=== PATIENT | male | born 1950 | race Caucasian/White ===

== ENCOUNTER 2016-03-27 17:33 | Observation (INO) | payer BC ==
[2016-03-27 17:57] LABS: ABSOLUTE BASOPHILS # (AUTO) 0.1 10^3/uL (0.0-0.2); ABSOLUTE EOSINOPHILS # (AUTO) 0.3 10^3/uL (0.0-0.6); ABSOLUTE LYMPHOCYTES (AUTO) 1.9 10^3/uL (0.5-4.7); ABSOLUTE MONOCYTES (AUTO) 0.6 10^3/uL (0.1-1.4); ABSOLUTE NEUT (AUTO) 4.5 10^3/uL (1.7-8.2); BASOPHILS % (AUTO) 0.8 % (0-2); EOSINOPHILS % (AUTO) 3.8 % (0-6); HEMATOCRIT 44.8 % (37.9-51.0); HEMOGLOBIN 14.9 g/dL (13.5-17.0); HGB HCT DIFFERENCE -0.1; LYMPHOCYTES % (AUTO) 25.7 % (13-45); MEAN CORPUSCULAR HEMOGLOBIN 29.6 pg (27.0-33.4); MEAN CORPUSCULAR HGB CONC 33.2 g/dL (32.0-36.0); MEAN CORPUSCULAR VOLUME 89 fl (80-97); MONOCYTES % (AUTO) 8.7 % (3-13); RED BLOOD COUNT 5.03 10^6/uL (4.35-5.55); RED CELL DISTRIBUTION WIDTH 14.8 % (11.5-14.0); WHITE BLOOD COUNT 7.3 10^3/uL (4.0-10.5)
[2016-03-27 18:20] LABS: ALANINE AMINOTRANSFERASE 32 U/L (21-72); ALBUMIN 3.6 g/dL (3.5-5.0); ALKALINE PHOSPHATASE 69 U/L (38-126); ANION GAP 8 (5-19); ASPARTATE AMINO TRANSFERASE 16 U/L (17-59); BILIRUBIN,TOTAL 0.4 mg/dL (0.2-1.3); BLOOD UREA NITROGEN 17 mg/dL (7-20); CALCIUM 8.7 mg/dL (8.4-10.2); CARBON DIOXIDE 25 mmol/L (22-30); CHLORIDE 107 mmol/L (98-107); CREATINE KINASE 65 U/L (55-170); CREATININE RESULT 0.73 mg/dL (0.52-1.25); GLUCOSE 326 mg/dL (75-110); POTASSIUM 4.9 mmol/L (3.6-5.0); SODIUM 139.7 mmol/L (137-145)
[2016-03-27 18:33] LABS: CREATINE KINASE MB 0.51 ng/mL (<4.55); TROPONIN I 0.027 ng/mL
--- NOTE | 2016-03-27 19:41 | ER Document Report ---
ED General - General Chief Complaint: Chest Pain > 30 Stated Complaint: CHEST PAIN Notes: Patient is a 65-year-old male with past medical history of known coronary artery disease status post 2 NSTEMIs with stent placement, diabetes, hypertension, hyperlipidemia who presents with 2 weeks of increasingly frequent chest pain. States he had an episode chest pain today that started while he was walking. Does describe it as a left-sided chest pressure that was moderately uncomfortable and got progressively worse. It was relieved after he received nitroglycerin. Nothing worsens the pain. He denies associated shortness of breath, nausea, vomiting or diaphoresis. He saw his security officer earlier this week for these increasingly frequent episodes of chest pain. An echocardiogram was done that was unremarkable and he is scheduled for a stress test at the end of the month. It is in greater than 1 year since his last stress test. He denies any history of aortic dissection, aortic aneurysm, DVT or pulmonary embolus. TRAVEL OUTSIDE OF THE [place] IN LAST 30 DAYS: No - Related Data Allergies/Adverse Reactions: No Known Allergies Allergy (Verified 03/27/16 18:10) Past Medical History - General Information source: Patient - Social History Smoking Status: Never Smoker Frequency of alcohol use: None Drug Abuse: None Lives with: Spouse/Significant other Family History: Reviewed & Not Pertinent Patient has suicidal ideation: No Patient has homicidal ideation: No - Past Medical History Cardiac Medical History: Reports: Hx Heart Attack - x2, Hx Hypertension Endocrine Medical History: Reports: Hx Diabetes Mellitus Type 2 Renal/ Medical History: Denies: Hx Peritoneal Dialysis Psychiatric Medical History: Reports: Hx Depression Review of Systems - Review of Systems Notes: Constitutional: Negative for fever. HENT: Negative for sore throat. Eyes: Negative for visual changes. Cardiovascular: Positive for chest pain. Respiratory: Negative for shortness of breath. Gastrointestinal: Negative for abdominal pain, vomiting or diarrhea. Genitourinary: Negative for dysuria. Musculoskeletal: Negative for back pain. Skin: Negative for rash. Neurological: Negative for headaches, weakness or numbness. 10 point ROS negative except as marked above and in HPI. Physical Exam - Vital signs Vitals: Resp Pulse Ox 19 100 03/27/16 17:50 03/27/16 17:50 Interpretation: Normal Notes: PHYSICAL EXAMINATION: GENERAL: Well-appearing, well-nourished and in no acute distress. HEAD: Atraumatic, normocephalic. EYES: Pupils equal round and reactive to light, extraocular movements intact, sclera anicteric, conjunctiva are normal. ENT: nares patent, oropharynx clear without exudates. Moist mucous membranes. NECK: Normal range of motion, supple without lymphadenopathy LUNGS: Breath sounds clear to auscultation bilaterally and equal. No wheezes rales or rhonchi. HEART: Regular rate and rhythm without murmurs ABDOMEN: Soft, nontender, normoactive bowel sounds. No guarding, no rebound. No masses appreciated. EXTREMITIES: Normal range of motion, no pitting or edema. No cyanosis. NEUROLOGICAL: No focal neurological deficits. Moves all extremities spontaneously and on command. PSYCH: Normal mood, normal affect. SKIN: Warm, Dry, normal turgor, no rashes or lesions noted. Course - Re-evaluation Re-evalutation: 03/27/16 19:39 Presentation of chest pain in an otherwise well appearing patient. Low clinical suspicion for ACS given clinical history, exam, EKG without ST elevations or depressions, and negative initial troponin. However, patient does given clinical history concerning for increasingly unstable angina his heart score is 4. PE also seems unlikely given clinical history, absence of tachycardia or dyspnea. Well's score is 0. CXR without evidence of pneumothorax or pneumonia. No widened mediastinum. Aortic dissection also seems unlikely given history, symmetric pulses, CXR, and vitals. Given patient's clinical history, I have recommended that he be admitted to the hospital for a stress test. Will await second troponin to ensure that patient has not had a NSTEMI 03/27/16 23:08 Patient remains chest pain-free. Second troponin remains unremarkable. Dr. Bassett has been consult for admission to the hospital and has accepted this time. - Vital Signs Vital signs: Temp Pulse Resp BP Pulse Ox 97.3 F 16 112/73 94 03/27/16 18:11 03/27/16 22:21 03/27/16 22:21 03/27/16 22:21 - Laboratory Result Diagrams: 03/27/16 17:42 03/27/16 17:42 Laboratory results interpreted by me: 03/27/16 03/27/16 03/27/16 17:42 17:42 18:20 RDW 14.8 H Glucose 326 H POC Glucose 279 H AST 16 L Total Protein 6.0 L - Diagnostic Test Radiology reviewed: Image reviewed, Reports reviewed Radiology results interpreted by me: 03/27/16 19:40 Chest x-ray: No widened mediastinum or pneumothorax - EKG Interpretation by Me Additional EKG results interpreted by me: 03/27/16 19:40 Normal sinus rhythm. Rate 93. No ST elevations or depressions. QTC is 408. Discharge - Discharge Clinical Impression: Chest pain Qualifiers: Chest pain type: unspecified Qualified Code(s): R07.9 - Chest pain, unspecified Condition: Fair Disposition: ADMITTED OBSERVATION Admitting Provider: [facility] Unit Admitted: Telemetry
[2016-03-28] MEDS ORDERED: DEXTROSE 50%-WATER 25 GM/50 ML DISP.SYRIN IV PRN ×2 (00:35)
[2016-03-28] MEDS ORDERED: GLUCAGON,HUMAN RECOMB 1 MG INJ IM PRN (00:35)
[2016-03-28] MEDS ORDERED: ACETAMINOPHEN 325 MG TABLET PO PRN (00:35)
[2016-03-28] MEDS ORDERED: DEXTROSE 40% GEL 15 GM TUBE PO PRN ×2 (00:35)
--- NOTE | 2016-03-28 01:05 | PDOC H&P ---
History of Present Illness Admission Date/PCP: 03/27/16 23:[address] [employer] Patient complains of: chest pain History of Present Illness: RHONDA WRIGHT is a 65 year old male, with known coronary artery disease , having suffered VT in 2005 and again in 2007. Stent 1 in 2005. Last stress test was greater than one year ago, but was told it was "okay." Presents to the emergency room for evaluation of a 2 week history of slowly increasingly frequent substernal chest pressure. Moderately uncomfortable at its worst, although gradually increasing in intensity with time. Nothing in particular worsens the pain. Most recent episode was earlier the day of admission while walking in a store. Took 2 of his own sublingual nitroglycerin along with 2 full strength aspirin. Was given an additional 2 sublingual nitroglycerin by EMS. Pain has resolved and has not recurred. No associated shortness of breath, nausea, vomiting, or diaphoresis. 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 Echocardiogram was performed; uncertain results. Scheduled for a stress test at the end of this month. History of DVT 2 years ago after total knee replacement. Anticoagulated for 3 months. No history of pulmonary embolus. No recent long trip with prolonged inactivity, or unusual lower extremity swelling or tenderness. Currently resting quietly, chest pain-free. Nitroglycerin paste applied by emergency room physician. Patient has been discussed with emergency room physician who evaluated the patient. . Laboratory results are listed in [place] and are reviewed. X-ray summary results are listed below, with full report(s) reviewed. . EKG reviewed. No old EKG available for comparison. Social history/personal habits: . 2 children. Retired. Lives with . No use of alcohol tobacco or illicit drugs. Allergies/adverse reactions NKDA. Home medications are reviewed by discussion with patient and have been reconciled by nursing staff in [facility]. Home medications initially autopopulated into [facility] may not accurately reflect patient's true medications, dosages, and/or frequencies. Unfortunately, patient uncertain of dosage of 2 of his medications, Zoloft and bupropion. REVIEW OF SYSTEMS: Constitutional: No fever or chills. Eyes: No current vision complaints. ENT: No swallowing problems or complaints. Partial hearing loss. Pulmonary: No current complaints. Cardiovascular: See history and present illness. Gastrointestinal: No current complaints, including nausea or vomiting. Skin: No current complaints, including rashes. Hematologic: No unusual easy bruising or bleeding. Neurologic: Peripheral neuropathy in his feet, secondary to diabetes mellitus. Musculoskeletal: No current complaints, including painful joints. Psychiatric: Mild Anxiety depression; denies suicidal or homicidal ideation. Endocrine: No current complaints, including polyuria. Genitourinary: No current complaints, including dysuria. PHYSICAL EXAMINATION: Temperature 97.3. Blood pressure 119/74. Pulse 83 and regular. 97% saturation on room air. Respirations are 21 and unlabored. 5 feet 10 inches tall. 106.1 kg. BMI 33.6 kg/m. Slightly obese otherwise well-developed male, appearing approximately his stated age. Pleasant awake alert and cooperative. No obvious distress other than mildly anxious. No agitation. Skin is warm and dry. No grossly obvious evidence of rash in areas of skin examined. No subcutaneous nodules palpated. ENT: Hearing grossly normal to normal conversation. Tongue midline on protrusion pink and slightly moist. Eyes: No scleral icterus. Pupils equal and reactive to light at 4 mm. [place] conjunctivae. Neck is supple and nontender to gentle active range of motion and palpation. Midline trachea. No palpable thyroid nodule mass enlargement or tenderness. Lymphatic: No palpable cervical or clavicular nodes. Neck and lymphatic exams limited by patient body habitus. Psychiatric: Reasonable insight into acute and chronic medical issues. Oriented to time location and why here. Lungs: Auscultation reveals clear and equal breath sounds bilaterally. No use of accessory respiratory muscles. Cardiovascular: Heart regular rate and rhythm, without gallop murmur or rub. No carotid or abdominal aortic bruits. No ankle or pedal edema. Faintly palpable dorsalis pedis pulses. Abdomen: soft, slightly obese, nontender with positive bowel sounds. No upper abdominal mass or organomegaly palpated. Compression of neither upper abdomen nor sternum reproduces previously noted chest discomfort. Extremities: Feet are warm and dry. No calf tenderness to compression. No grossly obvious visual evidence of calf swelling. Gentle manipulation of lower extremities fails to reveal any obvious evidence of injury or instability to knees hips or ankles. Neurologic: Moves upper extremities grossly normally. Patellar reflexes absent. Absent Babinski. Light touch is intact at feet. Dorsiflexion and plantarflexion of feet 5 / 5 and symmetric. Past Medical History Cardiac Medical History: Reports: Coronary Artery Disease, DVT, Myocardial Infarction - x2, Hypertension Denies: Congestive Heart Failure, Hyperlipidema, Pulmonary Embolism Pulmonary Medical History: Denies: Asthma, Chronic Obstructive Pulmonary Disease (COPD) EENT Medical History: Reports: Eyes - Glasses, Ears - Partial hearing loss Denies: Throat Neurological Medical History: Reports: Other - Diabetic peripheral neuropathy involving his feet Denies: Hemorrhagic CVA, Ischemic CVA, Seizures Endocrine Medical History: Reports: Diabetes Mellitus Type 1 Denies: Diabetes Mellitus Type 2, Hyperthyroidism, Hypothyroidism Renal/ Medical History: Reports: None GI Medical History: Reports: Peptic Ulcer Disease - Quite distant history of same Denies: Cirrhosis, Gastroesophageal Reflux Disease, Hepatitis Musculoskeltal Medical History: Denies: Arthritis Skin Medical History: Reports: None Denies: Eczema, Psoriasis Psychiatric Medical History: Reports: Depression, General Anxiety Disorder Denies: Alcohol Dependency, Substance Abuse, Tobacco Dependency Hematology: Reports: None Infectious Medical History: Denies: Hepatitis B, Hepatitis C Past Surgical History Past Surgical History: Reports: Cholecystectomy, Coronary Stent, Orthopedic Surgery - Total knee replacement. Social History Information Source: Patient, Emergency Med Personnel, [facility] Records Lives with: Spouse/Significant other Smoking Status: Never Smoker Frequency of Alcohol Use: None Drugs: None - Advance Directive Resuscitation Status: Full Code Surrogate healthcare decision maker:: Family History Family History: Reviewed & Not Pertinent Parental Family History Reviewed: Yes Children Family History Reviewed: Yes Sibling(s) Family History Reviewed.: Yes Medication/Allergy Home Medications: Butalb/Acetaminophen/Caffeine [Fioricet (50-325-40 mg) Tablet] 1 tab PO QIDP PRN 03/28/16 Esomeprazole Magnesium [Nexium] 40 mg PO DAILY 03/28/16 Insulin Glargine,Hum.rec.anlog [Lantus] 60 units SQ BID 03/28/16 Insulin Lispro [Humalog Kwikpen U-100] 0 units SQ ACHS 03/28/16 Metronidazole [Flagyl 500 mg Tablet] 500 mg PO TID 03/28/16 RX: Bupropion HCl [Wellbutrin Xl 300mg 24hr Tablet] 300 mg PO DAILY 03/28/16 RX: Nitroglycerin [Nitrostat] 0.4 mg SL Q5MP PRN 03/28/16 Sertraline HCl [Zoloft] 100 g PO DAILY 03/28/16 Allergies/Adverse Reactions: No Known Allergies Allergy (Verified 03/27/16 18:10) Physical Exam Vital Signs: Temp Pulse Resp BP Pulse Ox 97.3 F 14 121/73 97 03/27/16 18:11 03/28/16 00:01 03/28/16 00:01 03/28/16 00:01 Results Impressions: Chest X-Ray 03/27/16 17:50 IMPRESSION: NO ACUTE RADIOGRAPHIC FINDING IN THE CHEST. Assessment & Plan - Diagnosis (1) Chest pain Qualifiers: Chest pain type: unspecified Qualified Code(s): R07.9 - Chest pain, unspecified Is this a current diagnosis for this admission?: YesPlan: Patient will be placed in observation bed under chest pain protocol. Patient understands to notify staff should chest pain recur. Serial troponin's. Repeat EKG. lipid panel. I have strongly urged patient to be careful getting out of bed, to avoid a fall with injury. Knee high SCDs for DVT prophylaxis, along with subcutaneous Lovenox. Impression and plans were discussed with patient, who concurs. Time spent in evaluation and management of patient: 62 minutes. (2) History of DVT (deep vein thrombosis) Is this a current diagnosis for this admission?: YesPlan: D-dimer (3) Stented coronary artery Is this a current diagnosis for this admission?: Yes (4) Antibiotic long-term use Is this a current diagnosis for this admission?: YesPlan: Resume home medications as appropriate once these have been reviewed. (5) Anxiety Is this a current diagnosis for this admission?: YesPlan: Resume home medications as appropriate once these have been determined and reviewed. (6) Depression Qualifiers: Depression Type: unspecified Qualified Code(s): F32.9 - Major depressive disorder, single episode, unspecified Is this a current diagnosis for this admission?: YesPlan: Resume home medications as appropriate once these have been determined and reviewed. (7) Diabetes mellitus type 1 Qualifiers: Diabetes mellitus complication status: with neurologic complications Diabetes mellitus complication detail: with unspecified neuropathy Qualified Code(s): E10.40 - Type 1 diabetes mellitus with diabetic neuropathy, unspecified Is this a current diagnosis for this admission?: YesPlan: Cardiac diabetic diet. Accu-Cheks with appropriate sliding scale coverage. Resume home medications as appropriate once these have been reviewed.
[2016-03-28 05:12] LABS: CHOLESTEROL 176.18 mg/dL (0-200); Direct HDL 48 mg/dL (>40); TRIGLYCERIDES 71 mg/dL (<150)
[2016-03-28 05:23] LABS: DIRECT LDL 124 mg/dL (<100)
[2016-03-28] MEDS: LANSOPRAZOLE 30 MG TAB.RAP.DR PO SCH ×2 (06:15→18:16)
[2016-03-28] MEDS: METRONIDAZOLE 500 MG TABLET PO SCH ×3 (06:15→21:51)
[2016-03-28] MEDS ORDERED: DEXTROSE 5%-NORMAL SALINE 1,000 ML IV PRN (07:27)
--- NOTE | 2016-03-28 08:22 | EKG REPORT ---
SEVERITY:- NORMAL ECG - SINUS RHYTHM : Confirmed by: El Giordano MD 28-Mar-2016 08:22:23
[2016-03-28] MEDS ORDERED: ASPIRIN 325 MG TABLET PO SCH (10:00)
[2016-03-28] MEDS ORDERED: INSULIN GLARGINE,HUM.REC.ANLOG 1,000 UNIT/10 ML UNIT SUBCUT SCH ×2 (10:00→22:00)
[2016-03-28] MEDS ORDERED: CETIRIZINE 10 MG TABLET PO SCH (10:00)
[2016-03-28] MEDS ORDERED: ENOXAPARIN SODIUM INJ 40 MG/0.4 ML DISP.SYRIN SUBCUT SCH (10:00)
[2016-03-28] MEDS ORDERED: REGADENOSON INJ 0.4 MG/5 ML DISP.SYRIN IV ONE (13:27)
[2016-03-28] MEDS ORDERED: AMINOPHYLLINE INJ/PF 250 MG/10 ML SDV IV ONE (13:27)
--- NOTE | 2016-03-28 15:35 | DRAGON STRESS TEST REPORT ---
INTRAVENOUS LEXISCAN CARDIOLITE STRESS TEST USING SINGLE PHOTON EMMISION COMPUTERIZED TOMOGRAPHIC. DATE OF PROCEDURE: March 28, 2016 INDICATION : Chest pain CARDIAC RISK FACTORS: Diabetes, hypertension RESTING EKG: Sinus rhythm without any baseline ST-T wave changes STRESS EKG: No significant changes noted with LexiScan bolus REASON FOR TERMINATION: Protocol. PROCEDURE REPORT: Baseline heart rate 77 beats per minute with blood pressure of 140/78. Patient had no significant complaints. Heart rate at 2 minutes post bolus 96 with a blood pressure of 138/70. 3 minutes post bolus heart rate 90 with blood pressure of 139/72. No significant EKG changes were noted. Patient had no significant complaints during the procedure or postprocedure. CONCLUSIONS: Normal EKG and hemodynamic response to IV LexiScan. NUCLEAR DATA: At rest the patient was given 14.12 millicuries of technetium 99 sestamibi injected intravenously. As per protocol rest gated SPECT images were obtained. Subsequently the patient was given intravenous LexiScan at a dose of 0.4 mg in 5 mL intravenously, followed by flush with normal saline. Subsequently the stress dose of 47.5 millicuries of technetium 99 sestamibi was injected intravenously. As per protocol stress gated images were obtained. NUCLEAR INTERPRETATION: Both raw and processed data were used for interpretation. Visual, qualitative, computer-generated quantitative data was used. There was good myocardial uptake of technetium compound. Motion artifact and soft tissue attenuations were noted. Increased visceral uptake was noted. Mild inferior and inferoapical transient perfusion defect noted. No definitive areas of fixed perfusion defect or scars noted. EKG gated imaging showed LV EF at 53 %, rest and stress gated EF similar visually. T. I D. ratio was 1.23, this is borderline increased. Lung heart ratio noted to be within normal limits at 0.34. No significant extracardiac and abnormal radiotracer activities were noted. RV free wall uptake was noted to be increased consistent with RVH. IMPRESSION: Also refer to comments under nuclear interpretation. Also test results needs to be interpreted in the context of pretest probability. 1. Mild inferior wall and inferoapical LexiScan induced myocardial ischemia noted. 2. There is no definitive scintigraphic evidence of myocardial infarction/scar. 3. EKG gated imaging shows left ejection fraction of approximately 53 %. Mild basal and mid inferior wall hypokinesia noted 4. Clinical correlation requested as occasionally worse or balanced ischemia could be missed. In approximately 10% of the cases Lexiscan may not cause adequate vasodilatory stress. RECOMMENDATIONS: Aggressive risk factor modification, medical therapy. May consider cardiac catheterization based on patient's clinical symptoms and treatment response. Clinical correlation with echocardiogram derived ejection fraction. Inability to exercise by itself can lead to increased cardiovascular event risks. Consider cardiology consultation if clinically indicated. I AM AVAILABLE FOR CARDIOLOGY CONSULTATION AND FOLLOWUP IF REQUESTED BY PMD Diana Kaminski M.D., [employer]ular Saw Operator housekeeper, Board certified in cardiovascular diseases, Nuclear cardiology, Echocardiography Cardiac CT and cardiac MRI Ph. [phone] [facility]
[2016-03-28] MEDS ORDERED: ALPRAZOLAM 0.5 MG TABLET PO PRN (18:25)
--- NOTE | 2016-03-28 18:40 | PDOC TRANSFER SUMMARY ---
General Admission Date/PCP: 03/27/16 23:[address] Transfer Date: 03/28/16 Accepting Facility: [facility] Accepting Physician: Dr Chan Resuscitation Status: Full Code - Transfer Diagnosis (1) Unstable angina Is this a current diagnosis for this admission?: YesDiagnosis Summary: Patient was admitted to a monitored bed and initially ruled out for acute cardiac ischemia, however given his compelling story and after conversation with Dr. Cash his retail sales advisor, we elected to perform Cardiolite stress test that unfortunately is positive for inferior wall and inferioapical inducible ischemia, gated imaging showed left ventricular ejection fraction of approximately 53%, mild basal and inferior wall hypokinesia also noted. His EKG shows a normal sinus rhythm with a heart rate of 83, corrected QT interval 456, axis of 35 with a deep Q-wave noted in lead 3 but otherwise no ischemic changes of ST segment depression or elevation or T-wave inversion, etc. The patient's history, presentation and positive stress test warrant further invasive investigation with heart catheter. He is started on full dose Lovenox , aspirin 325 mg daily, metoprolol 25 mg twice a day, high-dose statin with atorvastatin at 80 mg. Arrangements for transfer to [facility] where his retail sales advisor resides. (2) History of DVT (deep vein thrombosis) Is this a current diagnosis for this admission?: Yes (4) Stented coronary artery Is this a current diagnosis for this admission?: Yes (5) Antibiotic long-term use Is this a current diagnosis for this admission?: Yes (6) Anxiety Is this a current diagnosis for this admission?: Yes (7) Depression Is this a current diagnosis for this admission?: Yes - Transfer Medications Home Medications: Bupropion HCl [Wellbutrin Xl 300mg 24hr Tablet] 300 mg PO DAILY 03/28/16 Butalb/Acetaminophen/Caffeine [Fioricet (50-325-40 mg) Tablet] 1 tab PO QIDP PRN 03/28/16 Esomeprazole Magnesium [Nexium] 40 mg PO DAILY 03/28/16 Insulin Glargine,Hum.rec.anlog [Lantus] 60 units SQ BID 03/28/16 Insulin Lispro [Humalog Kwikpen U-100] 0 units SQ ACHS 03/28/16 Metronidazole [Flagyl 500 mg Tablet] 500 mg PO TID 02/10/17 Nitroglycerin [Nitrostat] 0.4 mg SL Q5MP PRN 03/28/16 Sertraline HCl [Zoloft] 100 g PO DAILY 03/28/16 Transfer Medications: Current Medications Acetaminophen (Tylenol 325 Mg Tablet) 650 mg PO Q4HP PRN Stop: 04/27/16 00:34 Last Admin: 03/28/16 07:38 Dose: 650 mg Aspirin (Aspirin 325 Mg Tablet) 325 mg PO DAILY DAMIÁN Stop: 04/27/16 09:59 Last Admin: 03/28/16 12:20 Dose: 325 mg Atorvastatin Calcium (Lipitor 80 Mg Tablet) 80 mg PO QHS DAMIÁN Stop: 04/27/16 21:59 Cetirizine HCl (Zyrtec 10 Mg Tablet) 10 mg PO DAILY DAMIÁN Stop: 04/27/16 09:59 Last Admin: 03/28/16 12:20 Dose: 10 mg Dextrose (Dextrose Inj 50% Syringe (25 Gm/50 Ml)) 12.5 gm IV PRN PRN; Protocol PRN Reason: FOR BG 50-69 IN ALERT PATIENT Stop: 04/27/16 00:34 Last Admin: 03/28/16 02:49 Dose: 12.5 gm Dextrose (Dextrose Inj 50% Syringe (25 Gm/50 Ml)) 25 gm IV PRN PRN PRN Reason: Protocol Stop: 04/27/16 00:34 Enoxaparin Sodium (Lovenox Inj 100 Mg/1 Ml Disp.Syrin) 100 mg SUBCUT Q12 [facility] Stop: 04/27/16 18:14 Glucagon (Glucagen Inj 1 Mg Vial) 1 mg IM PRN PRN; Protocol PRN Reason: Evaluate for BG < 70 Stop: 04/27/16 00:34 Glucose (Glutose 40% Gel 15 Gm Tube) 15 gm PO PRN PRN; Protocol PRN Reason: FOR BG 50-69 IN ALERT PATIENT Stop: 04/27/16 00:34 Glucose (Glutose 40% Gel 15 Gm Tube) 30 gm PO PRN PRN; Protocol PRN Reason: FOR BG < 50 IN ALERT PATIENT Stop: 04/27/16 00:34 Insulin Glargine (Lantus Insulin 100 Unit/1 Ml 10 Ml) 60 unit SUBCUT Q12 [facility] Stop: 04/27/16 21:59 Lansoprazole (Prevacid 30 Mg Odt Tablet) 30 mg PO BID@0600,1700 [facility] Stop: 04/27/16 05:59 Last Admin: 03/28/16 18:16 Dose: 30 mg Metoprolol Tartrate (Lopressor 25 Mg Tablet) 25 mg PO Q12 [facility] Stop: 04/27/16 18:14 Metronidazole (Flagyl 500 Mg Tablet) 500 mg PO Q8 [facility] Stop: 04/04/16 05:59 Last Admin: 03/28/16 14:27 Dose: 500 mg Nitroglycerin (Nitro-Dur 2.5 Mg (0.1 Mg/Hr) Transdermal Ptch) 1 each TD DAILY [facility] Stop: 04/27/16 18:14 Sodium Chloride (Saline Flush 2.5 Ml Monoject Prefil Syrin) 2.5 ml IV Q8 [facility] Stop: 04/27/16 05:59 Last Admin: 03/28/16 14:27 Dose: 2.5 ml - Allergies Allergies/Adverse Reactions: No Known Allergies Allergy (Verified 03/27/16 18:10) - Diet/Activity Discharge Diet: Cardiac Discharge Activity: Bedrest Hospital Course Hospital Course: Per H&P per Dr. Bassett: "RHONDA WRIGHT is a 65 year old male, with known coronary artery disease, having suffered WI in 2005 and again in 2007. Stent 1 in 2005. Last stress test was greater than one year ago, but was told it was "okay." Presents to the emergency room for evaluation of a 2 week history of slowly increasingly frequent substernal chest pressure. Moderately uncomfortable at its worst, although gradually increasing in intensity with time. Nothing in particular worsens the pain. Most recent episode was earlier the day of admission while walking in a store. Took 2 of his own sublingual nitroglycerin along with 2 full strength aspirin. Was given an additional 2 sublingual nitroglycerin by EMS. Pain has resolved and has not recurred. No associated shortness of breath, nausea, vomiting, or diaphoresis. Saw his retail sales advisor earlier this week. Echocardiogram was performed; uncertain results. Scheduled for a stress test at the end of this month. History of DVT 2 years ago after total knee replacement. Anticoagulated for 3 months. No history of pulmonary embolus. No recent long trip with prolonged inactivity, or unusual lower extremity swelling or tenderness. Currently resting quietly, chest pain-free. Nitroglycerin paste applied by emergency room physician." I inherited his care this morning and with his history and telling such a compelling story and in spite of 3 sets of normal cardiac enzymes and a normal EKG, I elected to order a Cardiolite stress test which unfortunately show some inferior apical inducible ischemia. I spoke with Dr. Cash, the 's retail sales advisor who recommended transfer to [facility] for heart catheter if his test turned out positive. The patient was started on full dose Lovenox, and already received a full dose aspirin early this morning, Toprol 25 mg twice a day, transdermal Nitro-Dur and high-dose statin 80 mg 1 prior to transfer. I spoke with Dr. Jovon Chan, a world-renowned hospitalist and notorious [employer] fan, who graciously accepted the patient in transfer to [facility] for cardiac intervention. The patient is chest pain-free, resting comfortably, and hemodynamically stable for transfer at this time. Case was discussed with the patient at length, he is disappointed by this outcome but is grateful for the opportunity to transfer to [facility] where he says they've taken such good care of him in the past. Physical Exam Vital Signs: Temp Pulse Resp BP Pulse Ox 97.6 F 81 20 134/78 H 98 03/28/16 17:00 03/28/16 17:00 03/28/16 17:00 03/28/16 17:00 03/28/16 17:00 Intake & Output 03/27/16 03/28/16 03/29/16 06:59 06:59 06:59 Intake Total 240 Balance 240 EXAM GENERAL: NAD; well developed, well nourished; mild obese; alert and oriented to person, place, time, situation HEENT: normocephalic, atraumatic; no conjunctival injection, no scleral icterus ; oral mucosa moist; RESPIRATORY: no accessory muscle use, no increased WOB, good air entry bilaterally; no wheezes, rales, rhonchi; no inspiratory crackles CARDIO: no JVD; RRR; no systolic murmur; no tachycardia GI: soft; nondistended; normal bowel sounds; no rebound, rigidity, guarding; nontender VASCULAR: no carotid bruit; no abdominal bruit; no pallor; 2+ radial, DP pulse ; normal capillary refill EXTREMITIES: no calf tender; no palpable cords in calf; no clubbing, cyanosis , trace bilateral pedal edema PSYCH: normal affect, normal mood SKIN: warm; moist; no petechiae; no telengectasias; no jaundice; no rash Results Laboratory Results: 03/28/16 04:06 Triglycerides 71 Cholesterol 176.18 LDL Cholesterol Direct 124 H VLDL Cholesterol 14.0 HDL Cholesterol 48 03/28/16 03/28/16 04:06 09:54 Troponin I 0.019 < 0.012 Labs reviewed, cardiac enzymes negative EKG Comments: Normal sinus rhythm Impressions: Chest X-Ray 03/27/16 17:50 IMPRESSION: NO ACUTE RADIOGRAPHIC FINDING IN THE CHEST. Status: Imported from PACS Plan Discharge Plan: Transfer to [facility] for invasive cardiology evaluation and probable heart catheter. Dr. Chan accepting physician. Time Spent: Greater than 30 Minutes
--- NOTE | 2016-03-28 19:18 | EKG REPORT ---
SEVERITY:- NORMAL ECG - SINUS RHYTHM : Confirmed by: El Giordano MD 28-Mar-2016 19:17:19
[2016-03-28] MEDS ORDERED: METOPROLOL TARTRATE 25 MG TABLET PO ONE (20:00)
[2016-03-28] MEDS ORDERED: NITROGLYCERIN 2.5 MG (0.1 MG/HR) PATCH.TD24 TD ONE (20:00)
[2016-03-28] MEDS ORDERED: ENOXAPARIN SODIUM INJ 100 MG/1 ML DISP.SYRIN SUBCUT ONE (20:00)
[2016-03-28] MEDS ORDERED: ATORVASTATIN CALCIUM 80 MG TABLET PO SCH (22:00)
[2016-03-29 01:40] VITALS: BP 123/80
[2016-03-29] MEDS ORDERED: ENOXAPARIN SODIUM INJ 100 MG/1 ML DISP.SYRIN SUBCUT SCH (10:00)
[2016-03-29] MEDS ORDERED: METOPROLOL TARTRATE 25 MG TABLET PO SCH (10:00)
[2016-03-29] MEDS ORDERED: NITROGLYCERIN 2.5 MG (0.1 MG/HR) PATCH.TD24 TD SCH (10:00)
[2016-03-29] MEDS ORDERED: ASPIRIN 325 MG TABLET, ENT COATED PO SCH (10:00)
== END 2016-03-29 02:00 | disposition short-term general hospital (02) ==
LOC: ER 17:33 → EH 23:18 → UNDOADMOB 23:18 → EH 23:50 → 4N 03-28 01:54
PROVIDERS: ADMIT Family Medicine; ATTEND Family Medicine
DX: I20.0 Unstable angina (principal); I25.10 Atherosclerotic heart disease of native coronary artery without angina pectoris; Z95.5 Presence of coronary angioplasty implant and graft; I25.2 Old myocardial infarction; E10.42 Type 1 diabetes mellitus with diabetic polyneuropathy; K27.9 Peptic ulcer, site unspecified, unspecified as acute or chronic, without hemorrhage or perforation; F32.9 Major depressive disorder, single episode, unspecified; F41.1 Generalized anxiety disorder; Z79.899 Other long term (current) drug therapy; Z79.4 Long term (current) use of insulin; Z86.718 Personal history of other venous thrombosis and embolism; Z96.659 Presence of unspecified artificial knee joint
CPT/HCPCS: 93005 ×2; 99285; 36415; 82553; 82962 ×3; 82550; 85025; 80053; 84484 ×2; 85379; 80061; 93017; 71010; 78452; 93010 ×2; G0378; G0379; A9500; J2785; J1815; J3490 ×3; J1650; J0280; Q9969

== ENCOUNTER 2016-08-11 14:07 | Emergency (ER) | payer BC ==
[2016-08-11] MEDS ORDERED: NITROGLYCERIN/D5W 250 ML IV PRN (14:26)
--- NOTE | 2016-08-11 14:39 | RADIOLOGY REPORT (SQ) ---
EXAM DESCRIPTION: CHEST SINGLE VIEW COMPLETED DATE/TIME: 08/11/2016 2:30 pm REASON FOR STUDY: bed mp cp COMPARISON: AP chest 03/27/2016 EXAM PARAMETERS: NUMBER OF VIEWS: One view. TECHNIQUE: Single frontal radiographic view of the chest acquired. RADIATION DOSE: NA LIMITATIONS: None. FINDINGS: LUNGS AND PLEURA: No opacities, masses or pneumothorax. No pleural effusion. MEDIASTINUM AND HILAR STRUCTURES: No masses. Contour normal. HEART AND VASCULAR STRUCTURES: Heart normal in size. Normal vasculature. BONES: No acute findings. HARDWARE: Since the prior films 03/27/2016, patient has undergone sternotomy and CABG OTHER: No other significant finding. IMPRESSION: Sternotomy and CABG. No acute infiltrates. No pleural effusion. No pneumothorax. TECHNICAL DOCUMENTATION: JOB ID: [id number]
--- NOTE | 2016-08-11 14:58 | ER Document Report ---
ED Cardiac - General Mode of Arrival: Medic Information source: Patient TRAVEL OUTSIDE OF THE [place] IN LAST 30 DAYS: No - HPI Patient complains to provider of: Chest pain Chest pain location: Substernal Cardiac risk factors: Diabetes, Hypertension, [place]x [place] - [address] Associated symptoms: Other - see notes above <EARL SANDOVAL - Last Filed: 08/11/16 17:38> <APOLONIA JARA - Last Filed: 08/11/16 22:34> - General Chief Complaint: Chest Pain Stated Complaint: SHORTNESS OF BREATH Time Seen by Provider: 08/11/16 14:14 Notes: 65 year old male with history of hypertension, diabetes, VA x2 (2005 and 2007), and DVT (secondary to knee surgery) presents to the ED via EMS complaining of chest pain that started this morning, but worsened at approximately 1430. Patient states that he currently has mild substernal chest pain. Patient reports that he was seen in the ED on March 2016 for chest pain and was admitted for a stress test. Patient had a positive stress test and was transferred to [facility] where he received a CABGx3. Patient explains that he was supposed to have a CABGx4, but one of his arteries was not blocked enough for the procedure. Patient last saw his adult family home program manager at [facility] 1.5 months ago and has since referred him back to his local adult family home program manager. Patient states that his pain is similar to his episode in March, but 'not as severe.' Patient is not on any blood thinning medication. Patient was given ASA and nitro x2 by EMS. (EARL SANDOVAL) - Related Data Allergies/Adverse Reactions: No Known Allergies Allergy (Verified 03/27/16 18:10) Past Medical History - General Information source: Patient - Social History Smoking Status: Never Smoker Frequency of alcohol use: Rare Family History: Reviewed & Not Pertinent - Past Medical History Cardiac Medical History: Reports: Hx Coronary Artery Disease, Hx DVT - post knee surgery, Hx Heart Attack - x2 (2005 and 2007), Hx Hypertension Endocrine Medical History: Reports: Hx Diabetes Mellitus Type 1 Psychiatric Medical History: Reports: Hx Depression Past Surgical History: Reports: Hx Cholecystectomy, Hx Coronary Stent, Hx Orthopedic Surgery - Total knee replacement. - Immunizations Hx Diphtheria, Pertussis, Tetanus Vaccination: No <EARL SANDOVAL - Last Filed: 08/11/16 17:38> Review of Systems - Review of Systems Constitutional: No symptoms reported EENT: No symptoms reported Cardiovascular: See HPI, Chest pain Respiratory: No symptoms reported Gastrointestinal: No symptoms reported Genitourinary: No symptoms reported Male Genitourinary: No symptoms reported Musculoskeletal: No symptoms reported Skin: No symptoms reported Hematologic/Lymphatic: No symptoms reported Neurological/Psychological: No symptoms reported -: Yes All other systems reviewed and negative <EARL SANDOAVL - Last Filed: 08/11/16 17:38> Physical Exam - General General appearance: Alert In distress: None - HEENT Head: Normocephalic, Atraumatic Eyes: Normal Extraocular movements intact: Yes Pupils: PERRL - Respiratory Respiratory status: No respiratory distress Breath sounds: Normal - Cardiovascular Rhythm: Regular, Tachycardia Heart sounds: Normal auscultation - Abdominal Inspection: Other - overweight. No: Normal Distension: No distension Tenderness: Nontender - Back Back: Normal - Extremities General upper extremity: Normal inspection, Normal ROM General lower extremity: Normal inspection, Normal ROM - Neurological Neuro grossly intact: Yes Cognition: Normal Orientation: AAOx4 Micah Coma Scale Eye Opening: Spontaneous [place] Coma Scale Verbal: Oriented Micah Coma Scale Motor: Obeys Commands Micah Coma Scale Total: 15 Speech: Normal - Psychological Associated symptoms: Normal affect, Normal mood - Skin Skin Temperature: Warm Skin Moisture: Dry Skin Color: Normal <EARL SANDOVAL - Last Filed: 08/11/16 17:38> Course - Laboratory Result Diagrams: 08/11/16 14:20 08/11/16 14:20 - Consults [facility] Time consulted: 16:13 Dr. Brower Time consulted: 15:32 <EARL SANDOVAL - Last Filed: 08/11/16 17:38> - Laboratory Result Diagrams: 08/11/16 14:20 08/11/16 14:20 - Diagnostic Test Radiology reviewed: Reports reviewed - EKG Interpretation by Me EKG shows normal: Sinus rhythm Rate: Normal Rhythm: NSR <APOLONIA JARA - Last Filed: 08/11/16 22:34> - Re-evaluation Re-evalutation: 08/11/16 17:37 Patient is a 65-year-old male with a history of CABG who comes in complaining of chest pain, dyspnea and diaphoresis. Patient would like to go to [place] although he was recently at [facility]. Patient with continued chest pain at rest. Nitro drip initiated. 08/11/16 18:[address] Brower at [place]. Will be accepted there to the CCU for transfer 08/11/16 19:31 Patient resting comfortably. Nitro drip is at 20 mcg. No chest pain at this time. Has been informed that the patient would not have the ability to be transferred by ground until tomorrow. Patient was going to go by air. Ground is apparently going to be available within the hour. Patient is resting comfortably at this time and chest pain-free. 08/11/16 20:36 Transfer is here for patient. No chest pain at this time. Medically stable for transfer. (APOLONIA JARA) - Vital Signs Vital signs: Temp Pulse Resp BP Pulse Ox 18 116/78 98 08/11/16 20:15 08/11/16 20:15 08/11/16 20:15 - Laboratory Laboratory results interpreted by me: 08/11/16 08/11/16 14:20 14:20 RDW 15.3 H Eosinophils % 7.3 H Absolute Eosinophils 0.7 H Sodium 135.9 L Glucose 387 H AST 14 L - Consults [facility] Reason for consultation: 08/11/16 16:13 [facility] has been paged. (EARL SANDOVAL) Dr. Brower Reason for consultation: 08/11/16 16:32 Patient was discussed with Dr. Brower and agrees to admit the patient pending an open bed. (EARL SANDOVAL) Critical Care Note - Critical Care Note Total time excluding time spent on procedures (mins): 45 - Evaluation and management of chest pain, unstable angina, multiple re-evaluations, counseling of patient, coordination of transfer <APOLONIA JARA - Last Filed: 08/11/16 22:34> Discharge <EARL SANDOVAL - Last Filed: 08/11/16 17:38> <APOLONIA JARA - Last Filed: 08/11/16 22:34> - Discharge Clinical Impression: Unstable angina Condition: Stable Disposition: [facility] Referrals: ANAIS ALLEN, [employer] [Primary Care Provider] - Follow up as needed Scribe Attestation: 08/11/16 22:34 I personally performed the services described in the documentation, reviewed and edited the documentation which was dictated to the scribe in my presence, and it accurately records my words and actions. (APOLONIA JARA) Scribe Documentation - Scribe Written by Scribe:: Chris Cline, 08/11/2016 1507 acting as scribe for :: Marii <EARL SANDOVAL - Last Filed: 08/11/16 17:38>
[2016-08-11 15:02] LABS: ABSOLUTE BASOPHILS # (AUTO) 0.1 10^3/uL (0.0-0.2); ABSOLUTE EOSINOPHILS # (AUTO) 0.7 10^3/uL (0.0-0.6); ABSOLUTE LYMPHOCYTES (AUTO) 1.9 10^3/uL (0.5-4.7); ABSOLUTE MONOCYTES (AUTO) 0.6 10^3/uL (0.1-1.4); ABSOLUTE NEUT (AUTO) 6.4 10^3/uL (1.7-8.2); BASOPHILS % (AUTO) 0.8 % (0-2); EOSINOPHILS % (AUTO) 7.3 % (0-6); HEMATOCRIT 46.4 % (37.9-51.0); HEMOGLOBIN 15.2 g/dL (13.5-17.0); HGB HCT DIFFERENCE -0.8; LYMPHOCYTES % (AUTO) 19.3 % (13-45); MEAN CORPUSCULAR HEMOGLOBIN 27.7 pg (27.0-33.4); MEAN CORPUSCULAR HGB CONC 32.8 g/dL (32.0-36.0); MEAN CORPUSCULAR VOLUME 84 fl (80-97); MONOCYTES % (AUTO) 6.6 % (3-13); RED CELL DISTRIBUTION WIDTH 15.3 % (11.5-14.0); WHITE BLOOD COUNT 9.7 10^3/uL (4.0-10.5)
[2016-08-11 15:10] LABS: PROTHROMBIN TIME 12.8 SEC (11.4-15.4)
[2016-08-11 15:11] LABS: PARTIAL THROMBOPLASTIN TIME 24.5 SEC (23.5-35.8)
[2016-08-11 15:22] LABS: ALANINE AMINOTRANSFERASE 26 U/L (21-72); ALBUMIN 3.9 g/dL (3.5-5.0); ALKALINE PHOSPHATASE 88 U/L (38-126); ANION GAP 14 (5-19); ASPARTATE AMINO TRANSFERASE 14 U/L (17-59); BILIRUBIN,DIRECT 0.3 mg/dL (0.0-0.4); BILIRUBIN,TOTAL 0.4 mg/dL (0.2-1.3); BLOOD UREA NITROGEN 14 mg/dL (7-20); CALCIUM 9.5 mg/dL (8.4-10.2); CARBON DIOXIDE 24 mmol/L (22-30); CHLORIDE 98 mmol/L (98-107); CREATINE KINASE 58 U/L (55-170); CREATININE RESULT 0.73 mg/dL (0.52-1.25); GLUCOSE 387 mg/dL (75-110); POTASSIUM 4.8 mmol/L (3.6-5.0); SODIUM 135.9 mmol/L (137-145); TOTAL PROTEIN 6.7 g/dL (6.3-8.2)
[2016-08-11 15:34] LABS: CREATINE KINASE MB 0.76 ng/mL (<4.55)
[2016-08-11 15:37] LABS: TROPONIN I < 0.012 ng/mL
--- NOTE | 2016-08-11 18:55 | EKG REPORT ---
SEVERITY:- ABNORMAL ECG - SINUS TACHYCARDIA PROBABLE LEFT ATRIAL ABNORMALITY BORDERLINE INFERIOR Q WAVES BORDERLINE T ABNORMALITIES, INFERIOR LEADS : Confirmed by: Diana Kaminski 11-Aug-2016 18:55:16
[2016-08-11 20:42] VITALS: BP 116/78
== END 2016-08-11 20:35 | disposition short-term general hospital (02) ==
LOC: ER 14:07
DX: I20.0 Unstable angina (principal); R00.0 Tachycardia, unspecified; R61 Generalized hyperhidrosis; I10 Essential (primary) hypertension; I25.2 Old myocardial infarction; E10.9 Type 1 diabetes mellitus without complications; Z86.718 Personal history of other venous thrombosis and embolism; Z95.1 Presence of aortocoronary bypass graft; Z98.61 Coronary angioplasty status
CPT/HCPCS: 93005; 99291; 96365; 96366; 36415; 82553; 82962; 82550; 85025; 85610; 85730; 80053; 84484; 83880; 71010; 93010; J3490

== ENCOUNTER 2016-09-29 12:09 | Observation (INO) | payer BC ==
--- NOTE | 2016-09-29 13:36 | ER Document Report ---
ED Medical Screen (RME) - General Chief Complaint: Neck Problem Stated Complaint: HEAD PAIN Time Seen by Provider: 09/29/16 13:00 Mode of Arrival: Wheelchair Information source: Patient Notes: 64-year-old male presents to ED for complaint of head and neck pain that has been going on for the past several weeks that is much worse over the last 2 days. States the pain started in the occipital lobe but is now progressed to around the front of his head. He said this headache is so severe he cannot move his neck he cannot turn his head to the left right up or down. He is a heart patient with a history of 2 MIs triple bypass and stents with clot in the new bypass. He is also a diabetic with knee replacement and neuropathy. He has a history of migraines but he states this is gone away past the migraine. I have greeted and performed a rapid initial assessment of this patient. A comprehensive ED assessment and evaluation of the patient, analysis of test results and completion of medical decision making process will be conducted by an additional ED providers. TRAVEL OUTSIDE OF THE [place] IN LAST 30 DAYS: No - Related Data Allergies/Adverse Reactions: No Known Allergies Allergy (Verified 09/29/16 12:12) Past Medical History - Social History Chew tobacco use (# tins/day): No Frequency of alcohol use: Rare Drug Abuse: None - Past Medical History Cardiac Medical History: Reports: Hx Coronary Artery Disease, Hx DVT - post knee surgery, Hx Heart Attack - x2 (2005 and 2007), Hx Hypertension Denies: Hx Congestive Heart Failure, Hx Hypercholesterolemia, Hx Pulmonary Embolism Pulmonary Medical History: Denies: Hx Asthma, Hx Bronchitis, Hx COPD, Hx Pneumonia, Hx Tuberculosis Neurological Medical History: Denies: Hx Seizures Endocrine Medical History: Reports: Hx Diabetes Mellitus Type 1. Denies: Hx Diabetes Mellitus Type 2, Hx Hyperthyroidism, Hx Hypothyroidism Renal/ Medical History: Denies: Hx Benign Prostatic Hyperplasia, Hx End Stage Renal Disease, Hx Kidney Stones, Hx Peritoneal Dialysis GI Medical History: Denies: Hx Cirrhosis, Hx Gastroesophageal Reflux Disease, Hx Hepatitis, Hx Ulcer Musculoskeltal Medical History: Denies Hx Arthritis, Denies Hx Multiple Sclerosis Skin Medical History: Denies Hx Eczema, Denies Hx Psoriasis Psychiatric Medical History: Reports: Hx Depression Denies: Hx Bipolar Disorder, Hx Schizophrenia Infectious Medical History: Denies: Hx Hepatitis Past Surgical History: Reports: Hx Cardiac Catheterization, Hx Cardiac Surgery - triple bypass, Hx Cholecystectomy, Hx Coronary Stent, Hx Orthopedic Surgery - Total knee replacement. - Immunizations Hx Diphtheria, Pertussis, Tetanus Vaccination: No Physical Exam - Vital signs Vitals: Temp Pulse Resp BP Pulse Ox 98.2 F 95 20 153/90 H 97 09/29/16 12:12 09/29/16 12:12 09/29/16 12:12 09/29/16 12:12 09/29/16 12:12 Course - Vital Signs Vital signs: Temp Pulse Resp BP Pulse Ox 98.2 F 95 20 153/90 H 97 09/29/16 12:12 09/29/16 12:12 09/29/16 12:12 09/29/16 12:12 09/29/16 12:12
[2016-09-29] MEDS ORDERED: ONDANSETRON HCL INJ/PF 4 MG/2 ML SDV IV ONE (13:52)
[2016-09-29] MEDS ORDERED: DEXAMETHASONE SOD PHOSPHATE INJ 4 MG/1 ML VIAL IV ONE (13:52)
[2016-09-29] MEDS ORDERED: KETOROLAC TROMETHAMINE INJ/PF 30 MG/1 ML SDV IV ONE (13:52)
[2016-09-29] MEDS ORDERED: DIPHENHYDRAMINE HCL 50 MG/ML VIAL IV ONE (13:52)
[2016-09-29] MEDS ORDERED: DEXAMETHASONE SOD PHOS INJ 10 MG/1 ML VIAL IV ONE (13:52)
[2016-09-29 14:24] LABS: ABSOLUTE EOSINOPHILS # (AUTO) 0.2 10^3/uL (0.0-0.6); ABSOLUTE LYMPHOCYTES (AUTO) 1.4 10^3/uL (0.5-4.7); ABSOLUTE MONOCYTES (AUTO) 0.7 10^3/uL (0.1-1.4); ABSOLUTE NEUT (AUTO) 5.5 10^3/uL (1.7-8.2); BASOPHILS % (AUTO) 0.5 % (0-2); HEMATOCRIT 44.1 % (37.9-51.0); HGB HCT DIFFERENCE 0.9; LYMPHOCYTES % (AUTO) 17.2 % (13-45); MEAN CORPUSCULAR HEMOGLOBIN 29.3 pg (27.0-33.4); MEAN CORPUSCULAR VOLUME 86 fl (80-97); MONOCYTES % (AUTO) 9.4 % (3-13); RED BLOOD COUNT 5.12 10^6/uL (4.35-5.55); RED CELL DISTRIBUTION WIDTH 16.6 % (11.5-14.0); SEGMENTED NEUTROPHILS % (AUTO) 69.9 % (42-78); WHITE BLOOD COUNT 7.9 10^3/uL (4.0-10.5)
--- NOTE | 2016-09-29 15:31 | ER Document Report ---
ED General - General Chief Complaint: Neck Problem Stated Complaint: HEAD PAIN Time Seen by Provider: 09/29/16 13:00 Mode of Arrival: Wheelchair Notes: 65-year-old male with migraines and coronary artery disease on Plavix presents with over a week of headache gradual onset, holocephalic, radiating down the left neck initially now both sides of his neck with restricted mobility. He has neck pain as well. It got acutely worse yesterday. He has been nauseous and photophobic since then. No fever or sore throat. Feels different and worse than prior migraines. He has no neurologic symptoms. He is taking Fioricet and muscle relaxers and that has not helped. TRAVEL OUTSIDE OF THE [place] IN LAST 30 DAYS: No - Related Data Allergies/Adverse Reactions: No Known Allergies Allergy (Verified 09/29/16 12:12) Past Medical History - General Information source: Patient - Social History Smoking Status: Former Smoker Chew tobacco use (# tins/day): No Frequency of alcohol use: Rare Drug Abuse: None Family History: Reviewed & Not Pertinent Patient has suicidal ideation: No Patient has homicidal ideation: No - Past Medical History Cardiac Medical History: Reports: Hx Coronary Artery Disease, Hx DVT - post knee surgery, Hx Heart Attack - x2 (2005 and 2007), Hx Hypertension Denies: Hx Congestive Heart Failure, Hx Hypercholesterolemia, Hx Pulmonary Embolism Pulmonary Medical History: Denies: Hx Asthma, Hx Bronchitis, Hx COPD, Hx Pneumonia, Hx Tuberculosis Neurological Medical History: Denies: Hx Seizures Endocrine Medical History: Reports: Hx Diabetes Mellitus Type 1. Denies: Hx Diabetes Mellitus Type 2, Hx Hyperthyroidism, Hx Hypothyroidism Renal/ Medical History: Denies: Hx Benign Prostatic Hyperplasia, Hx End Stage Renal Disease, Hx Kidney Stones, Hx Peritoneal Dialysis GI Medical History: Denies: Hx Cirrhosis, Hx Gastroesophageal Reflux Disease, Hx Hepatitis, Hx Ulcer Musculoskeltal Medical History: Denies Hx Arthritis, Denies Hx Multiple Sclerosis Skin Medical History: Denies Hx Eczema, Denies Hx Psoriasis Psychiatric Medical History: Reports: Hx Depression Denies: Hx Bipolar Disorder, Hx Schizophrenia Infectious Medical History: Denies: Hx Hepatitis Past Surgical History: Reports: Hx Cardiac Catheterization, Hx Cardiac Surgery - triple bypass, Hx Cholecystectomy, Hx Coronary Stent, Hx Orthopedic Surgery - Total knee replacement. - Immunizations Hx Diphtheria, Pertussis, Tetanus Vaccination: No Review of Systems - Review of Systems Notes: REVIEW OF SYSTEMS GEN: Denies fever, chills, weight loss ENT: Denies sore throat, nasal discharge, ear pain EYES: Denies blurry vision, eye pain, discharge CV: Denies chest pain, palpitations, edema RESP: Denies cough, shortness of breath, wheezing GI: Denies abdominal pain, nausea, vomiting, diarrhea MSK: Denies joint pain/swelling, edema, positive neck pain SKIN: Denies rash, skin lesions LYMPH: Denies swollen glands/lymph nodes NEURO: Headache PSYCH: Denies depression, suicidal or homicidal ideation PHYSICAL EXAMINATION General: N appears in pain, eyes closed Head: Atraumatic, normocephalic ENT: Mouth normal, oropharynx moist, no exudates or tonsillar enlargement Eyes: Conjunctiva normal, pupils equal, lids normal Neck: No JVD, supple, she does guard against range of motion and has tenderness in both trapezius muscles. CVS: Normal rate, regular rhythm, no murmurs Resp: No resp distress, equal and normal breath sounds bilaterally GI: Nondistended, soft, no tenderness to palpation, no rebound or guarding Ext: No deformities, no edema, normal range of motion in upper and lower ext Back: No CVA or midline TTP Skin: No rash, warm Lymphatic: No lymphadeopathy noted Neuro: Awake, alert. Face symmetric. GCS 15. Equal strength in all 4 extremities with poor compliance with exam. Normal sensation in all 4 extremity 's. Cranial nerves II through XII are intact. Physical Exam - Vital signs Vitals: Temp Pulse Resp BP Pulse Ox 98.2 F 95 20 153/90 H 97 09/29/16 12:12 09/29/16 12:12 09/29/16 12:12 09/29/16 12:12 09/29/16 12:12 Course - Re-evaluation Re-evalutation: 09/29/16 15:30 65-year-old male with headache for a week worse for a day and features of neck spasm. No focal neurologic symptoms. His differential diagnosis includes tension headache worsening migraine, less likely meningitis given that he has no fever after over a week of pain. Subarachnoid bleed is on the list. He will receive a migraine cocktail, and I will check labs along with a Noncon head CT to rule out bleed or mass, as well as a CT angios neck to rule out cervical arterial dissection given his risk factors and neck pain. At that point I will have a discussion about the risks and benefits of lumbar puncture to identify old subarachnoid blood. 09/29/16 17:45 Since feeling slightly better after medications. CT angiogram CT head are read as negative. At this time while preparing for lumbar puncture I had a long discussion with the patient and his about the risks and benefits of proceeding given his low pretest probability for subarachnoid hemorrhage followed by a normal CAT scan, as well as the increased risk of bleeding while taking Plavix and getting a lumbar puncture. The other we elected to defer lumbar puncture given the risk of SAH at this time I think is low and the risk of meningitis is even lower. I will defer to primary care about stopping Plavix and ordering an outpatient lumbar puncture. I will prescribe him muscle relaxers and pain medication. His was given very careful return precautions in terms of subarachnoid bleed or worsening symptoms of infectious etiologies. I have discussed with the patient there likely diagnosis, aftercare plan, follow -up plans and my usual and customary return precautions. They verbalized understanding of this. 09/29/16 19:04 Had a lengthy discussion with the patient's and she is not comfortable taking him home. He has received multiple meds for migraines that he got Versed before the LP so he is understandably somnolent. She is concerned she will be able to see the warning signs of worsening. I also told her to call the primary care but was unable to contact anyone director of graduate medical education. Will admit the patient for severe headache and further management. 09/29/16 20:03 Accepted by Serj[facility]. - Vital Signs Vital signs: Temp Pulse Resp BP Pulse Ox 98.2 F 95 20 153/90 H 97 09/29/16 12:12 09/29/16 12:12 09/29/16 12:12 09/29/16 12:12 09/29/16 12:12 - Laboratory Result Diagrams: 09/29/16 14:10 09/29/16 15:31 Laboratory results interpreted by me: 09/29/16 09/29/16 14:10 15:31 RDW 16.6 H Carbon Dioxide 31 H Glucose 187 H Discharge - Discharge Clinical Impression: Headache Qualifiers: Headache type: other headache syndrome Qualified Code(s): G44.89 - Other headache syndrome Condition: Good Disposition: ADMITTED INPATIENT Admitting Provider: Hospitalist Unit Admitted: IMCU Instructions: Headache ([facility]) Additional Instructions: As we discussed the risk of bleeding or meningitis at this time is quite low, and actually lower than the risk of a complication from performing a spinal tap while taking a blood thinners like Plavix. I am unable to arrange the outpatient lumbar puncture for you from the emergency room however I would like you to call your doctor tomorrow, be seen, and strategized to see if this will be necessary. I am prescribing a medication for symptoms. If you get any worse in terms of your headache dizziness or if you develop a fever or numbness tingling anywhere would like you return to the emergency department immediately. Prescriptions: Methocarbamol [Robaxin 750 mg Tablet] 750 mg PO ASDIR PRN #40 tablet PRN Reason: Oxycodone HCl 5 mg PO Q4 PRN #10 tablet PRN Reason: Referrals: ANAIS ALLEN NP [Primary Care Provider] - Follow up tomorrow
[2016-09-29] MEDS ORDERED: LIDOCAINE 1%/EPINEPHRINE INJ 20 ML VIAL INJ ONE (16:05)
[2016-09-29 16:18] LABS: ANION GAP 6 (5-19); BLOOD UREA NITROGEN 15 mg/dL (7-20); CALCIUM 9.3 mg/dL (8.4-10.2); CARBON DIOXIDE 31 mmol/L (22-30); CHLORIDE 101 mmol/L (98-107); CREATININE RESULT 0.67 mg/dL (0.52-1.25); GLUCOSE 187 mg/dL (75-110); POTASSIUM 4.2 mmol/L (3.6-5.0); SODIUM 138.3 mmol/L (137-145)
[2016-09-29] MEDS ORDERED: MIDAZOLAM 2 MG/2 ML INJ IV ONE (16:32)
--- NOTE | 2016-09-29 16:57 | RADIOLOGY REPORT (SQ) ---
EXAM DESCRIPTION: CT HEAD WITHOUT COMPLETED DATE/TIME: 09/29/2016 4:49 pm REASON FOR STUDY: HERNANDEZ COMPARISON: None. TECHNIQUE: Axial images acquired through the brain without intravenous contrast. Images reviewed wi th bone, brain and subdural windows. Images stored on PACS. All CT scanners at this facility use dose modulation, iterative reconstruction, and/or weight based d osing when appropriate to reduce radiation dose to as low as reasonably achievable (ALARA). [facility]: Dose Right [facility]: CareDose [facility]: Dose Right [facility]: Teradose 4D [facility]: Smart WISE s.r.l RADIATION DOSE: Up-to-date CT equipment and radiation dose reduction techniques were employed. CTDIv ol: 64.6 mGy. DLP: 1163 mGy-cm. mGy. LIMITATIONS: None. FINDINGS: VENTRICLES: Normal size and contour. CEREBRUM: No masses. No hemorrhage. No midline shift. Normal rubi/white matter differentiation. N o evidence for acute infarction. CEREBELLUM: No masses. No hemorrhage. No alteration of density. No evidence for acute infarction. EXTRAAXIAL SPACES: No fluid collections. No masses. ORBITS AND GLOBE: No intra- or extraconal masses. Normal contour of globe without masses. CALVARIUM: No fracture. PARANASAL SINUSES: No fluid or mucosal thickening. SOFT TISSUES: No mass or hematoma. OTHER: No other significant finding. IMPRESSION: NORMAL BRAIN CT WITHOUT CONTRAST. TECHNICAL DOCUMENTATION: JOB ID: [id number] Quality ID # [id number]: Final reports with documentation of one or more dose reduction techniques (e.g., Au tomated exposure control, adjustment of the mA and/or kV according to patient size, use of iterative reconstruction technique) 2010 [employer]- All Rights Reserved
--- NOTE | 2016-09-29 16:59 | RADIOLOGY REPORT (SQ) ---
EXAM DESCRIPTION: CTA NECK COMPLETED DATE/TIME: 09/29/2016 4:49 pm REASON FOR STUDY: caro/neck pain, vasc dz- r/o dissection carotid/vert COMPARISON: None. TECHNIQUE: Axial dynamic scanning technique with dynamic contrast enhancement through the extra-multicraft operator nial carotid and vertebral arteries. Multiplanar reconstruction. 3-D MIPS and Volume-rendered imag es acquired at the workstation and saved to PACS. Images are reviewed in soft tissue, bone, lung w indows. All CT scanners at this facility use dose modulation, iterative reconstruction, and/or weight based d osing when appropriate to reduce radiation dose to as low as reasonably achievable (ALARA). [facility]: Dose Right [facility]: CareDose [facility]: Dose Right [facility]: Teradose 4D [facility]: Banksnob CONTRAST TYPE AND DOSE: contrast/concentration: Isovue 370.00 mg/ml; Total Contrast Delivered: 70.0 ml; Total Saline Delivered: 65.0 ml RENAL FUNCTION: BUN 15 creatinine 0.7 LIMITATIONS: None. FINDINGS: AORTIC ARCH: Normal three-vessel origin. Bilateral subclavian arteries are patent. No d issection. RIGHT CAROTIDS: Patent common, internal and external carotid arteries without suggestion of significa nt stenosis or irregular plaque. No dissection. RIGHT VERTEBRAL: Patent. No dissection. LEFT CAROTIDS: Patent common, internal and external carotid arteries without suggestion of significan t stenosis or irregular plaque. No dissection. LEFT VERTEBRAL: Patent. No dissection. OTHER: No other significant finding. OTHER: 3-D reconstructions confirm findings. IMPRESSION: No evidence of dissection or significant stenosis. COMMENT: Quality ID #[id number]: Measurements of distal internal carotid diameter were used as the denomina tor for stenosis measurement. TECHNICAL DOCUMENTATION: JOB ID: [id number] Quality ID # 436: Final reports with documentation of one or more dose reduction techniques (e.g., Au tomated exposure control, adjustment of the mA and/or kV according to patient size, use of iterative reconstruction technique) 2010 [employer]- All Rights Reserved
[2016-09-29 21:55] LABS: ADD ON TESTING BLD IN LAB ACKNOWLEDGE
[2016-09-29 22:20] LABS: ALANINE AMINOTRANSFERASE 24 U/L (21-72); ALKALINE PHOSPHATASE 67 U/L (38-126); ASPARTATE AMINO TRANSFERASE 17 U/L (17-59); BILIRUBIN,DIRECT 0.4 mg/dL (0.0-0.4); BILIRUBIN,TOTAL 0.5 mg/dL (0.2-1.3); MAGNESIUM 1.9 mg/dL (1.6-2.3); TOTAL PROTEIN 6.8 g/dL (6.3-8.2)
[2016-09-29 22:21] LABS: ALCOHOL < 10 mg/dL (NONE DETECTED)
[2016-09-29] MEDS ORDERED: DEXTROSE 50%-WATER 25 GM/50 ML DISP.SYRIN IV PRN ×2 (22:52)
[2016-09-29] MEDS ORDERED: DEXTROSE 40% GEL 15 GM TUBE PO PRN ×2 (22:52)
[2016-09-29] MEDS ORDERED: PROMETHAZINE HCL 25 MG TABLET PO PRN (22:52)
[2016-09-29] MEDS ORDERED: GLUCAGON,HUMAN RECOMB 1 MG INJ IM PRN (22:52)
[2016-09-29] MEDS ORDERED: MAGNESIUM HYDROXIDE SUSP 30 ML UDCUP PO PRN (22:53)
--- NOTE | 2016-09-29 23:13 | PDOC H&P ---
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 Patient has been discussed with emergency room physician who evaluated the patient. Describes a one-week history of gradual progression of migraine headache, holocephalic, radiating down his neck, and forward over his eyes. Over the last 24 hours or so, the neck pain, in particular on the left, has become much more pronounced than usual, to the point where he has difficulty turning his head from side to side at all. Patient states that overall the location and character of his head and neck pain is similar to prior episodes, but the intensity of the neck pain is increased. He has had nausea but no vomiting. Positive photophobia. No fever or sore throat. No shaking chills. No chest or abdominal pain. Initial evaluation and treatment by the emergency room physician led to plans for discharge home. However, after his headache improved, pain began to worsen again. This, combined with his level of sedation from treatment given in the emergency room, led his to being uncomfortable taking him home. Discussed at length with the emergency room physician. He feels this is unlikely meningitis, and low probability of subarachnoid hemorrhage. Patient is also on Plavix. ER physician was thus reluctant to perform lumbar puncture. Patient is currently resting quietly. States the headache and neck pain is still present, although somewhat improved. Hospitalized on our service 27 March for chest pain, with subsequent abnormal nuclear stress study, with transfer to [facility], will with patient undergoing subsequent 3 vessel coronary arterial bypass graft. Stent implant last month in [place]. History and physical and transfer summary reviewed. Dictation via voice recognition software. Laboratory results are listed in [id number] and are reviewed. X-ray summary results are listed below, with full report(s) reviewed. . Social history/personal habits: . 2 children. Retired. Lives with . No use of alcohol tobacco or illicit drugs. No known drug allergies. Home medications initially autopopulated into [facility] may not accurately reflect patient's true medications, dosages, and/or frequencies. 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 REVIEW OF SYSTEMS: Constitutional: No fever or chills. Eyes: Wears glasses ENT: No swallowing problems or complaints. Partial hearing loss. See history and present illness. Pulmonary: No current complaints. Cardiovascular: No current complaints, including chest pain. Gastrointestinal: See history and present illness. Skin: No current complaints, including rashes. Hematologic: Denies easy bruising. Neurologic: See history and present illness. Peripheral diabetic neuropathy involving his feet. Musculoskeletal: No current or chronic joint complaints, such as arthritis. Psychiatric: Mild anxiety and depression. Denies suicidal or homicidal ideation. Endocrine: No current complaints, including polyuria. Genitourinary: No current complaints, including dysuria. PHYSICAL EXAMINATION: 5 feet 10 inches tall. 98.4 kg. BMI 31.1 kg/m.Temperature 97.7. Pulse 94 and regular. Blood pressure 123/74. Respirations are 20 and unlabored. 97% saturation on room air. Slightly obese otherwise well-developed male appearing a number of years younger than his stated age. Initially asleep, but awakens easily. Pleasant alert and cooperative. Female floor nurse is present at his side. Skin is tanned, warm and dry. No grossly obvious evidence of rash in areas of skin examined. No subcutaneous nodules palpated. ENT: Hearing grossly normal to normal conversation. Tongue midline on protrusion pink and slightly tacky. Eyes: No scleral icterus. Pupils equal and reactive to light at 4 mm. [place] conjunctivae. Neck is mildly tender laterally and posteriorly to palpation; nontender anteriorly. Midline trachea. No palpable thyroid nodule mass enlargement or tenderness. Lymphatic: No palpable cervical or clavicular nodes. Neck and lymphatic exams limited by patient body habitus. Psychiatric: Reasonable insight into acute and chronic medical issues. Oriented to time location and why here. Lungs: Auscultation reveals clear and equal breath sounds bilaterally. No use of accessory respiratory muscles. Cardiovascular: Heart regular rate and rhythm, without gallop murmur or rub. No carotid or abdominal aortic bruits. No ankle or pedal edema. Faintly palpable dorsalis pedis pulses. Abdomen:soft slightly obese nontender with positive bowel sounds. Unable to adequately evaluate abdomen for masses or organomegaly due to body habitus. Extremities: Hands and feet are warm and dry. No calf tenderness to compression. No grossly obvious visual evidence of calf swelling. Gentle manipulation of upper and lower extremities fails to reveal any obvious evidence of injury or instability to involved major joints. Neurologic: Cranial Nerves II through XII are grossly intact with the exception that patient does not turn his head side to side due to discomfort. Light touch intact at face, upper and lower extremities. Motor function of major muscle groups upper and lower extremities 5 over 5 and symmetric. Patellar reflexes absent. Absent Babinski. No nystagmus. Past Medical History Cardiac Medical History: Reports: Coronary Artery Disease, DVT - post knee surgery, Myocardial Infarction - x2 (2005 and 2007), Hypertension Denies: Congestive Heart Failure, Hyperlipidema, Pulmonary Embolism Pulmonary Medical History: Reports: Sleep Apnea - not compliant w/CPAP Denies: Asthma, Bronchitis, Chronic Obstructive Pulmonary Disease (COPD), Pneumonia, Tuberculosis EENT Medical History: Reports: Eyes - Glasses, Ears - Partial hearing loss Denies: Throat Neurological Medical History: Reports: Other - Diabetic peripheral neuropathy involving his feet Denies: Hemorrhagic CVA, Ischemic CVA, Seizures Endocrine Medical History: Reports: Diabetes Mellitus Type 1 Denies: Diabetes Mellitus Type 2, Hyperthyroidism, Hypothyroidism Renal/ Medical History: Reports: None GI Medical History: Reports: Peptic Ulcer Disease - Distant history of same Denies: Cirrhosis, Gastroesophageal Reflux Disease, Hepatitis Musculoskeltal Medical History: Denies: Arthritis Skin Medical History: Denies: Eczema, Psoriasis Psychiatric Medical History: Reports: Depression, General Anxiety Disorder Denies: Alcohol Dependency, Bipolar Disorder, Tobacco Dependency Hematology: Reports: None Infectious Medical History: Denies: Clostridium Difficile, Hepatitis B, Hepatitis C, Methicillin- Resistant Staph Aureus Past Surgical History Past Surgical History: Reports: Cardiac Catheterization, Cholecystectomy, Coronary Artery Bypass Graft - March 2016, [facility] three-vessel, Coronary Stent - August 2016, [facility]; earlier stent also, Orthopedic Surgery - Total knee replacement. Social History Information Source: Patient, Emergency Med Personnel, [facility] Records Lives with: Spouse/Significant other Smoking Status: Former Smoker Cigarettes Packs Per Day: 1 Number of Years Smokin Last Time Smoked: 30 years ago Frequency of Alcohol Use: None Hx Recreational Drug Use: No Drugs: None Hx Prescription Drug Abuse: No - Advance Directive Resuscitation Status: Full Code Surrogate healthcare decision maker:: Family History Family History: Reviewed & Not Pertinent Parental Family History Reviewed: Yes Children Family History Reviewed: Yes Sibling(s) Family History Reviewed.: Yes Medication/Allergy Home Medications: Butalb/Acetaminophen/Caffeine [Ebubkc-Juabzgvp-Atep 50-325-40] 1 tab PO Q6HP PRN 09/29/16 Clopidogrel Bisulfate [Plavix 75 mg Tablet] 75 mg PO DAILY 09/29/16 Empagliflozin [Jardiance] 10 mg PO DAILY 09/29/16 Insulin Lispro [Humalog Insulin (Lispro) 100 unit/mL] 10 units SL MEALS Metoprolol Tartrate [Lopressor 25 mg Tablet] 12.5 mg PO Q12 09/29/16 Pantoprazole Sodium [Protonix] 40 mg PO DAILY 09/29/16 Pitavastatin Calcium [Livalo] 4 mg PO DAILY 09/29/16 Cyclobenzaprine HCl [Flexeril 10 mg Tablet] 10 mg PO TIDP PRN #15 tab 09/30/16 Hydrocodone/Acetaminophen [Vicodin 5-300 mg Tablet] 1 tab PO Q6HP PRN #10 tab Ibuprofen [Motrin 800 mg Tablet] 800 mg PO Q8HP PRN #10 tablet 09/30/16 Ondansetron [Zofran Odt 4 mg Tablet] 1 - 2 tab PO Q4HP PRN #10 tab.rapdis Promethazine HCl [Phenergan 25 mg Supp.rect] 1 supp [place] Q4HP PRN #12 supp.rect Allergies/Adverse Reactions: No Known Allergies Allergy (Verified 09/29/16 12:12) Physical Exam Vital Signs: Temp Pulse Resp BP Pulse Ox 98.2 F 95 24 H 134/83 H 97 09/29/16 12:12 09/29/16 12:12 09/29/16 21:06 09/29/16 21:06 09/29/16 21:06 Results Impressions: Head CT 09/29/16 13:44 IMPRESSION: NORMAL BRAIN CT WITHOUT CONTRAST. Neck CTA 09/29/16 13:52 IMPRESSION: No evidence of dissection or significant stenosis. Assessment & Plan - Diagnosis (1) Migraine Qualifiers: Migraine type: unspecified Intractability: intractable Is this a current diagnosis for this admission?: Yes Plan: As needed Fioricet, per patient history. I have strongly encouraged patient not to get out of bed without notifying staff , to avoid a fall with injury. Knee high SCDs for DVT prophylaxis, along with subcutaneous Lovenox. Impression and plans were discussed with patient, who concurs. Time spent in evaluation and management of patient: 72 minutes. (2) Neck pain Is this a current diagnosis for this admission?: Yes (3) Stented coronary artery Is this a current diagnosis for this admission?: Yes Plan: Resume home medications as appropriate once these have been determined and reviewed. (4) Diabetes mellitus type 1 Qualifiers: Diabetes mellitus complication status: with neurologic complications Diabetes mellitus complication detail: with unspecified neuropathy Qualified Code(s): E10.40 - Type 1 diabetes mellitus with diabetic neuropathy, unspecified Is this a current diagnosis for this admission?: Yes Plan: Diabetic cardiac diet. Accu-Cheks with appropriate sliding scale coverage. Resume home medications as appropriate once these have been determined and reviewed. (5) Diabetes mellitus type 2 in obese Is this a current diagnosis for this admission?: Yes (6) HLD (hyperlipidemia) Qualifiers: Hyperlipidemia type: unspecified Qualified Code(s): E78.5 - Hyperlipidemia , unspecified Is this a current diagnosis for this admission?: Yes Plan: Resume home medications as appropriate once these have been determined and reviewed. (7) HTN (hypertension) Qualifiers: Hypertension type: essential hypertension Qualified Code(s): I10 - Essential (primary) hypertension Is this a current diagnosis for this admission?: Yes Plan: Resume home medications as appropriate once these have been determined and reviewed. - Time Time Spent: Greater than 70 Minutes Medications reviewed and adjusted accordingly: Yes Anticipated discharge: Home Within: within 24 hours
[2016-09-30] LABS: URINE METHADONE SCREEN NEGATIVE; URINE OPIATES LOW NEGATIVE; URINE PHENCYCLIDINE SCREEN NEGATIVE
[2016-09-30 00:02] LABS: URINE BARBITURATES SCREEN UNCONFIRMED POSITIVE
[2016-09-30] MEDS: BUTALB/ACETAMINOPHEN/CAFFEINE 1 TAB EACH PO PRN ×2 (00:05→07:00)
[2016-09-30] MEDS: INSULIN LISPRO 100 UNIT/ML 3 ML VIAL SUBCUT SCH ×3 (08:47→16:58)
[2016-09-30] MEDS: INSULIN LISPRO 100 UNIT/ML 3 ML VIAL SUBCUT PRN ×3 (08:47→16:58)
[2016-09-30] MEDS ORDERED: (PENDING PHARMACY ID) (Pitavastatin Calcium [Livalo] 4 MG) PO SCH (10:00)
[2016-09-30] MEDS ORDERED: ENOXAPARIN SODIUM INJ 40 MG/0.4 ML DISP.SYRIN SUBCUT SCH (10:00)
[2016-09-30] MEDS ORDERED: (PENDING PHARMACY ID) (Empagliflozin [Jardiance] 10 MG) PO SCH (10:00)
[2016-09-30] MEDS ORDERED: METOPROLOL TARTRATE 25 MG TABLET PO SCH (10:00)
[2016-09-30] MEDS ORDERED: CLOPIDOGREL BISULFATE 75 MG TABLET PO SCH (10:00)
[2016-09-30] MEDS ORDERED: METOCLOPRAMIDE HCL INJ/PF 10 MG/2 ML SDV IV ONE ×2 (10:30→19:00)
[2016-09-30] MEDS ORDERED: DIPHENHYDRAMINE HCL 50 MG/ML VIAL IV ONE ×2 (10:30→19:00)
[2016-09-30] MEDS ORDERED: CYCLOBENZAPRINE HCL 10 MG TABLET PO ONE ×2 (10:30→19:00)
[2016-09-30] MEDS: DOCUSATE SODIUM 100 MG CAPSULE PO SCH ×2 (10:54→17:24)
[2016-09-30] MEDS ORDERED: KETOROLAC TROMETHAMINE INJ/PF 30 MG/1 ML SDV IV ONE ×2 (11:00→19:00)
[2016-09-30] MEDS ORDERED: NORMAL SALINE 1000 ML 2,000 ML IV ONE (12:59)
--- NOTE | 2016-09-30 15:34 | PDOC DISCHARGE SUMMARY ---
General - Admit/Disc Date/PCP Admission Date/Primary Care Provider: 09/29/16 22:53 ANAIS ALLEN NP Discharge Date: 09/30/16 - Discharge Diagnosis (1) Migraine Is this a current diagnosis for this admission?: Yes (2) Neck pain Is this a current diagnosis for this admission?: Yes (3) Stented coronary artery Is this a current diagnosis for this admission?: Yes (4) Anxiety Is this a current diagnosis for this admission?: Yes (5) Depression Is this a current diagnosis for this admission?: Yes (6) Diabetes mellitus type 2 in obese Is this a current diagnosis for this admission?: Yes (7) HLD (hyperlipidemia) Is this a current diagnosis for this admission?: Yes (8) HTN (hypertension) Is this a current diagnosis for this admission?: Yes (9) History of DVT (deep vein thrombosis) Is this a current diagnosis for this admission?: Yes (10) History of ME (myocardial infarction) Is this a current diagnosis for this admission?: Yes (11) Hx of CABG Is this a current diagnosis for this admission?: Yes (12) Obesity due to excess calories with serious comorbidity Is this a current diagnosis for this admission?: Yes - Additional Information Resuscitation Status: Full Code Discharge Diet: Cardiac, Diabetic Discharge Activity: Activity As Tolerated, No Driving Home Medications: Butalb/Acetaminophen/Caffeine [Yasryl-Yubzxccs-Pvja 50-325-40] 1 tab PO Q6HP PRN 09/29/16 Clopidogrel Bisulfate [Plavix 75 mg Tablet] 75 mg PO DAILY 09/29/16 Empagliflozin [Jardiance] 10 mg PO DAILY 09/29/16 Insulin Lispro [Humalog Insulin (Lispro) 100 unit/mL] 10 units SL MEALS Metoprolol Tartrate [Lopressor 25 mg Tablet] 12.5 mg PO Q12 09/29/16 Pantoprazole Sodium [Protonix] 40 mg PO DAILY 09/29/16 Pitavastatin Calcium [Livalo] 4 mg PO DAILY 09/29/16 Cyclobenzaprine HCl [Flexeril 10 mg Tablet] 10 mg PO TIDP PRN #15 tab 09/30/16 Hydrocodone/Acetaminophen [Vicodin 5-300 mg Tablet] 1 tab PO Q6HP PRN #10 tab Ibuprofen [Motrin 800 mg Tablet] 800 mg PO Q8HP PRN #10 tablet 09/30/16 Ondansetron [Zofran Odt 4 mg Tablet] 1 - 2 tab PO Q4HP PRN #10 tab.rapdis Promethazine HCl [Phenergan 25 mg Supp.rect] 1 supp [place] Q4HP PRN #12 supp.rect History of Present Illness History of Present Illness: RHONDA WRIGHT is a 65 year old male with 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 Patient has been discussed with emergency room physician who evaluated the patient. Describes a one-week history of gradual progression of migraine headache, holocephalic, radiating down his neck, and forward over his eyes. Over the last 24 hours or so, the neck pain, in particular on the left, has become much more pronounced than usual, to the point where he has difficulty turning his head from side to side at all. Patient states that overall the location and character of his head and neck pain is similar to prior episodes, but the intensity of the neck pain is increased. He has had nausea but no vomiting. Positive photophobia. No fever or sore throat. No shaking chills. No chest or abdominal pain. Initial evaluation and treatment by the emergency room physician led to plans for discharge home. However, after his headache improved, he began to worsen again. This, combined with his level of sedation from treatment giving in the emergency room, let his to being uncomfortable taking him home. Discussed at length with the emergency room physician. He feels this is unlikely meningitis, and low probability of subarachnoid hemorrhage. Patient is also on Plavix. ER physician was thus reluctant to perform lumbar puncture. Patient is currently resting quietly. States the headache and neck pain is still present, although somewhat improved. Hospitalized on our service 27 March for chest pain, with subsequent abnormal nuclear stress study, and transferred to [facility] with patient undergoing subsequent 3 vessel coronary arterial bypass graft. Stent implant last month in [place]. History and physical and transfer summary reviewed. Hospital Course Hospital Course: Patient had no relief with medications given in the ED including versed, decadron, and toradol 15mg. Patient was given toradol 30mg IVx1, benadryl 50mg IV x1, flexeril 10mg po x1, and reglan 10mg IV x1 with improvement of his symptoms. Although patient continues to complain of neck pain, he is able to move his neck. He has had no fevers and has improved with conservative therapy. Patient self-reports non compliance with CPAP, diabetic diet, and HTN management. Patient has been instructed on reasons to be compliant and given pharmacologic and non-pharmacologic recommendations. Family is present at bedside and all questions are answered to their satisfaction. Physical Exam Vital Signs: Temp Pulse Resp BP Pulse Ox 97.9 F 84 18 131/68 H 98 09/30/16 10:45 09/30/16 14:00 09/30/16 10:45 09/30/16 10:45 09/30/16 10:45 Intake & Output 09/29/16 09/30/16 10/01/16 06:59 06:59 06:59 Intake Total 506 598 Output Total 0 Balance 506 598 Weight 97.6 kg Exam: GENERAL: No acute distress, A+Ox3 HEENT: AT/NC, Conjunctiva clear, nonicteric, moist mucous membranes, no JVD, slight submandibular adenopathy, midline trachea NECK: supple, mildly tender to palpation, no meningismus RESPIRATORY: CABG midline scar, Clear to auscultation bilaterally CARDIAC: Regular rate and rhythm, no murmurs/gallops/rubs ABDOMEN: protuberant, soft, NTTP, ND, active bowel sounds, no rebound, no rigidity, no guarding EXTREMETIES: no cyanosis, no clubbing, no edema NEUROLOGIC: Alert, oriented to person, place, time, CN's grossly intact, no focal deficits PSYCH: Normal mood and affect Results Impressions: Head CT 09/29/16 13:44 IMPRESSION: NORMAL BRAIN CT WITHOUT CONTRAST. Neck CTA 09/29/16 13:52 IMPRESSION: No evidence of dissection or significant stenosis. Qualifiers PATEINT BEING DISCHARGED WITH ANY OF THE FOLLOWING DIAGNOSIS?: No Plan Time Spent: Greater than 30 Minutes
[2016-09-30 17:27] VITALS: BP 115/65
[2016-09-30] MEDS ORDERED: ATORVASTATIN CALCIUM 20 MG TABLET PO SCH (22:00)
== END 2016-09-30 18:25 | disposition home or self-care (01) ==
LOC: ER 12:09 → UNDOADMIN 20:05 → EH 20:05 → 3W 21:43 → INTOOBSV 22:53 → 3W 22:53
PROVIDERS: ADMIT Family Medicine; ATTEND Family Medicine
DX: G43.919 Migraine, unspecified, intractable, without status migrainosus (principal); M54.2 Cervicalgia; Z95.5 Presence of coronary angioplasty implant and graft; F41.1 Generalized anxiety disorder; F32.9 Major depressive disorder, single episode, unspecified; E10.40 Type 1 diabetes mellitus with diabetic neuropathy, unspecified; E11.42 Type 2 diabetes mellitus with diabetic polyneuropathy; E78.5 Hyperlipidemia, unspecified; E66.01 Morbid (severe) obesity due to excess calories; I10 Essential (primary) hypertension; G47.33 Obstructive sleep apnea (adult) (pediatric); Z86.718 Personal history of other venous thrombosis and embolism; I25.2 Old myocardial infarction; Z95.1 Presence of aortocoronary bypass graft; Z79.4 Long term (current) use of insulin; Z87.891 Personal history of nicotine dependence; Z90.49 Acquired absence of other specified parts of digestive tract; Z91.14 Patient's other noncompliance with medication regimen; Z79.02 Long term (current) use of antithrombotics/antiplatelets; Z68.30 Body mass index [BMI] 30.0-30.9, adult
CPT/HCPCS: 99284; 96375; 96365; 96366; 36415; 82962 ×2; 80307 ×2; 83735; 85025; 80076; 80048; 70450; 70498; G0378 ×2; J2250; J3490 ×3; J1100 ×2; J1200 ×2; J1815; J1885 ×2; J2765; J2405; J7030

== ENCOUNTER 2018-04-06 09:32 | Inpatient (IN) | payer MEDICARE, BC ==
[2018-04-06] MEDS ORDERED: NORMAL SALINE 1000 ML 1,000 ML IV PRN ×2 (10:17→11:18)
[2018-04-06] MEDS ORDERED: ONDANSETRON HCL INJ/PF 4 MG/2 ML SDV IV ONE (10:18)
--- NOTE | 2018-04-06 10:25 | ER Document Report ---
ED General - General Chief Complaint: High Blood Sugar Stated Complaint: ABDOMINAL PAIN Time Seen by Provider: 04/06/18 09:46 Primary Care Provider: ANAIS ALLEN NP [Primary Care Provider] - Follow up as needed Notes: 67-year-old male presents with nausea and vomiting. Patient just on a vacation for the last 9 days of [place]. Unfortunately did not take any of his medicines with him. Patient began vomiting about 4 AM Thursday morning on the way back here. Patient has been vomiting all day yesterday. EMS was called. Patient had elevated blood sugar high. stated that [place] contact with had a stomach virus. TRAVEL OUTSIDE OF THE [place] IN LAST 30 DAYS: No - Related Data Allergies/Adverse Reactions: No Known Allergies Allergy (Verified 04/06/18 10:07) Past Medical History - Social History Smoking Status: Never Smoker Chew tobacco use (# tins/day): No Frequency of alcohol use: None Drug Abuse: None Family History: Reviewed & Not Pertinent Patient has suicidal ideation: No Patient has homicidal ideation: No - Past Medical History Cardiac Medical History: Reports: Hx Coronary Artery Disease, Hx DVT - post knee surgery, Hx Heart Attack - x2 (2005 and 2007), Hx Hypertension Denies: Hx Congestive Heart Failure, Hx Hypercholesterolemia, Hx Pulmonary Embolism Pulmonary Medical History: Reports: Hx Sleep Apnea - not compliant w/CPAP Denies: Hx Asthma, Hx Bronchitis, Hx COPD, Hx Pneumonia, Hx Tuberculosis Neurological Medical History: Denies: Hx Seizures Endocrine Medical History: Reports: Hx Diabetes Mellitus Type 1. Denies: Hx Diabetes Mellitus Type 2, Hx Hyperthyroidism, Hx Hypothyroidism Renal/ Medical History: Denies: Hx Benign Prostatic Hyperplasia, Hx End Stage Renal Disease, Hx Kidney Stones, Hx Peritoneal Dialysis GI Medical History: Denies: Hx Cirrhosis, Hx Gastroesophageal Reflux Disease, Hx Hepatitis, Hx Ulcer Musculoskeletal Medical History: Denies Hx Arthritis, Denies Hx Multiple Sclerosis Skin Medical History: Denies Hx Eczema, Denies Hx Psoriasis Psychiatric Medical History: Reports: Hx Depression Denies: Hx Bipolar Disorder, Hx Schizophrenia Infectious Medical History: Denies: Hx C-Diff, Hx Hepatitis, Hx MRSA Past Surgical History: Reports: Hx Cardiac Catheterization, Hx Cardiac Surgery - triple bypass, Hx Cholecystectomy, Hx Coronary Artery Bypass Graft - March 2016, [facility] three-vessel, Hx Coronary Stent - August 2016, [facility]; earlier stent also, Hx Orthopedic Surgery - Total knee replacement. - Immunizations Hx Diphtheria, Pertussis, Tetanus Vaccination: No Review of Systems - Review of Systems Constitutional: Chills. denies: Fever Cardiovascular: denies: Chest pain Respiratory: denies: Cough Gastrointestinal: Abdominal pain, Nausea, Vomiting Neurological/Psychological: Headaches -: Yes All other systems reviewed and negative Physical Exam - Vital signs Vitals: Resp Pulse Ox 28 H 100 04/06/18 09:41 04/06/18 09:41 - Notes Notes: GENERAL_APPEARANCE: well_nourished, alert, cooperative, doubly vomiting VITALS: reviewed, see vital signs table. HEAD: no_swelling\tenderness on the head. EYES: PERRL, EOMI, conjunctiva_clear. NOSE: no_nasal_discharge. MOUTH: Dry mucous membranes THROAT: no_tonsilar_inflammation, no_airway_obstruction. no_lymphadenopathy NECK: supple, no_neck_tenderness, (-)thyromegaly. BACK: no_back_tenderness. CHEST_WALL: no_chest_tenderness. LUNGS: no_wheezing, no_rales, no_rhonchi, (-)accessory muscle use, good air exchange bilateral. HEART: normal_rate, normal_rhythm, normal_S1, normal_S2, (-)S3, (-)S4, no_murmur, no_rub. ABDOMEN: normal_BS, soft, epigastric_abd_tenderness, (-)guarding, (-)rebound, no_organomegaly, no_abd_masses. EXTREMITIES: good pulses in all_extremities, no_swelling\tenderness in the extremities, no_edema. SKIN: warm, dry, good_color, no_rash. MENTAL_STATUS: speech_clear, oriented_X_3, normal_affect, responds_appropriately to questions. NEURO: Neg Motor or Sensory Deficits on exam, CN 2-12 intact, DTR 2+ symmetric x 4, No cerbellar signs Course - Re-evaluation Re-evalutation: 04/06/18 10:24 Patient arrives with nausea vomiting and elevated blood sugar. Will be sure the patient is not in DKA we will give him several liters of fluid Zofran. He complains of some belly pain we will scan his belly though this is likely gastritis. Check a lipase. Make sure this is not pancreatitis. He denies any alcohol use. 04/06/18 12:20 Patient is found to be in diabetic ketoacidosis. He was started on insulin drip he is received several liters of IV fluids. He has been without his insulin for 9 days. The patient had a CT which that showed some gastric distention. His lipase is elevated likely due to the vomiting. There are no LFT elevations or anything to suggest a biliary tract obstruction. Patient has improved with nausea pain medicine fluids and insulin drip. The patient's potassium is elevated but likely his whole body potassium is low this is due to the acidosis as we give him insulin and fluids will begin shifting the potassium back into the cells. I spoke with the hospitalist service she is agreement to admit him to the intensive care unit or IMCU. - Vital Signs Vital signs: Temp Pulse Resp BP Pulse Ox 25 H 131/79 H 99 04/06/18 12:00 04/06/18 12:00 04/06/18 12:00 - Laboratory Result Diagrams: 04/06/18 10:10 04/06/18 10:10 Laboratory results interpreted by me: 04/06/18 04/06/18 04/06/18 10:10 10:10 10:10 WBC 20.1 H RBC 5.94 H Hgb 17.6 H Hct 55.5 H MCHC 31.7 L RDW 15.9 H Seg Neuts % (Manual) 85 H Band Neutrophils % 1 L Lymphocytes % (Manual) 7 L Abs Neuts (Manual) 17.3 H VBG pH 7.06 L* VBG pCO2 26.1 L VBG HCO3 7.2 L Sodium 134.4 L Potassium 6.3 H* Chloride 92 L Carbon Dioxide 7 L* Anion Gap 35 H BUN 39 H Creatinine 2.02 H Est GFR ( Amer) 40 L Est GFR (Non-Af Amer) 33 L Glucose 668 H* Magnesium 2.4 H Creatine Kinase 299 H Albumin 5.2 H Lipase 6585.6 H Urine Protein Urine Glucose (UA) Urine Ketones Urine Blood 04/06/18 11:30 WBC RBC Hgb Hct MCHC RDW Seg Neuts % (Manual) Band Neutrophils % Lymphocytes % (Manual) Abs Neuts (Manual) VBG pH VBG pCO2 VBG HCO3 Sodium Potassium Chloride Carbon Dioxide Anion Gap BUN Creatinine Est GFR ( Amer) Est GFR (Non-Af Amer) Glucose Magnesium Creatine Kinase Albumin Lipase Urine Protein 30 H Urine Glucose (UA) >=500 H Urine Ketones 80 H Urine Blood LARGE H - Diagnostic Test Radiology reviewed: Reports reviewed Radiology results interpreted by me: 04/06/18 12:23 Abdomen/Pelvis CT 04/06/18 10:25 IMPRESSION: DISTENDED STOMACH WHICH MAY BE DUE TO GASTROPARESIS VERSUS GASTRIC OUTLET OBSTRUCTION. NO OTHER SIGNIFICANT FINDING IN THE ABDOMEN OR PELVIS. Critical Care Note - Critical Care Note Total time excluding time spent on procedures (mins): 35 Discharge - Discharge Clinical Impression: DKA (diabetic ketoacidoses) Qualifiers: Diabetes mellitus type: type 1 Vomiting Qualifiers: Vomiting type: unspecified Vomiting Intractability: non-intractable Nausea presence: unspecified Qualified Code(s): R11.10 - Vomiting, unspecified Pancreatitis, acute Qualifiers: Pancreatitis type: unspecified pancreatitis type Acute pancreatitis complication: no infection or necrosis Qualified Code(s): K85.90 - Acute pancreatitis without necrosis or infection, unspecified Condition: Serious Disposition: ADMITTED INPATIENT Admitting Provider: Hospitalist Unit Admitted: IMCU Referrals: ANAIS ALLEN NP [Primary Care Provider] - Follow up as needed
[2018-04-06 10:51] LABS: VENOUS BLOOD BASE EXCESS -21.8 mmol/L; VENOUS BLOOD HCO3 7.2 mmol/L (20-32); VENOUS BLOOD PCO2 26.1 mmHg (35-63)
[2018-04-06 10:53] LABS: VENOUS BLOOD PH 7.06 (7.30-7.42)
[2018-04-06 10:59] LABS: ALANINE AMINOTRANSFERASE 30 U/L (21-72); ALBUMIN 5.2 g/dL (3.5-5.0); ALKALINE PHOSPHATASE 103 U/L (38-126); ASPARTATE AMINO TRANSFERASE 20 U/L (17-59); BILIRUBIN,DIRECT 0.3 mg/dL (0.0-0.4); BILIRUBIN,TOTAL 0.4 mg/dL (0.2-1.3); BLOOD UREA NITROGEN 39 mg/dL (7-20); CALCIUM 9.3 mg/dL (8.4-10.2); CREATINE KINASE 299 U/L (55-170); TOTAL PROTEIN 7.6 g/dL (6.3-8.2)
[2018-04-06 11:04] LABS: CHLORIDE 92 mmol/L (98-107); SODIUM 134.4 mmol/L (137-145)
[2018-04-06 11:08] LABS: HEMOGLOBIN 17.6 g/dL (13.5-17.0); MEAN CORPUSCULAR HEMOGLOBIN 29.6 pg (27.0-33.4); MEAN CORPUSCULAR HGB CONC 31.7 g/dL (32.0-36.0); MEAN CORPUSCULAR VOLUME 93 fl (80-97); PLATELET COUNT 370 10^3/uL (150-450); RED BLOOD COUNT 5.94 10^6/uL (4.35-5.55); RED CELL DISTRIBUTION WIDTH 15.9 % (11.5-14.0); WHITE BLOOD COUNT 20.1 10^3/uL (4.0-10.5)
[2018-04-06 11:11] LABS: CREATINE KINASE MB 4.02 ng/mL (<4.55); TROPONIN I 0.022 ng/mL
[2018-04-06 11:14] LABS: ANION GAP 35 (5-19)
[2018-04-06 11:17] LABS: CARBON DIOXIDE 7 mmol/L (22-30); GLUCOSE 668 mg/dL (75-110); POTASSIUM 6.3 mmol/L (3.6-5.0)
[2018-04-06 11:18] LABS: LIPASE 6585.6 U/L (23-300)
[2018-04-06] MEDS ORDERED: INSULIN REG, HUMAN 100 UNIT/ML 3 ML VIAL (PYX) IV ONE (11:18)
--- NOTE | 2018-04-06 11:29 | RADIOLOGY REPORT (SQ) ---
EXAM DESCRIPTION: CT ABD/PELVIS NO ORAL OR IV COMPLETED DATE/TIME: 04/06/2018 11:13 am REASON FOR STUDY: Vomiting COMPARISON: None. TECHNIQUE: CT scan of the abdomen and pelvis performed without intravenous or oral contrast. Images reviewed with lung, soft tissue, and bone windows. Reconstructed coronal and sagittal MPR images revi ewed. All images stored on PACS. All CT scanners at this facility use dose modulation, iterative reconstruction, and/or weight based d osing when appropriate to reduce radiation dose to as low as reasonably achievable (ALARA). [facility]: Dose Right [facility]: CareDose [facility]: Dose Right [facility]: Teradose 4D [facility]: Tiempo Listo RADIATION DOSE: CT Rad equipment meets quality standard of care and radiation dose reduction techniq ues were employed. CTDIvol: 11.5 mGy. DLP: 654 mGy-cm.mGy. LIMITATIONS: Motion artifact. FINDINGS: LOWER CHEST: No significant findings. No nodules or infiltrates. NON-CONTRASTED LIVER, SPLEEN, ADRENALS: Evaluation limited by lack of IV contrast. No identified sign ificant masses. PANCREAS: No masses. No peripancreatic inflammatory changes. GALLBLADDER: Surgically absent. RIGHT KIDNEY AND URETER: No suspicious masses. Assessment limited by lack of IV contrast. No signif icant calcifications. No hydronephrosis or hydroureter. LEFT KIDNEY AND URETER: Small cortical cyst. No suspicious masses. Assessment limited by lack of IV contrast. No significant calcifications. No hydronephrosis or hydroureter. AORTA AND RETROPERITONEUM: No aneurysm. No retroperitoneal masses or adenopathy. BOWEL AND PERITONEAL CAVITY: Distended stomach. No obvious masses or inflammatory changes. No free f luid. APPENDIX: Normal. PELVIS, BLADDER, AND ABDOMINAL WALL:No abnormal masses. No free fluid. Bladder normal. Penile prosth esis. BONES: No significant findings. OTHER: No other significant finding. IMPRESSION: DISTENDED STOMACH WHICH MAY BE DUE TO GASTROPARESIS VERSUS GASTRIC OUTLET OBSTRUCTION. NO OTHER SIGNIFICANT FINDING IN THE ABDOMEN OR PELVIS. COMMENT: Quality ID # [id number]: Final reports with documentation of one or more dose reduction techniques (e.g., Automated exposure control, adjustment of the mA and/or kV according to patient size, use of iterative reconstruction technique) TECHNICAL DOCUMENTATION: JOB ID: [id number] [employer]- All Rights Reserved Reading location - IP/workstation name: [email or web address]
[2018-04-06 11:31] LABS: HEMATOCRIT 55.5 % (37.9-51.0)
[2018-04-06 11:33] LABS: ABSOLUTE LYMPHOCYTES# (MANUAL) 1.4 10^3/uL (0.5-4.7); ABSOLUTE MONOCYTES # (MANUAL) 1.4 10^3/uL (0.1-1.4); ABSOLUTE NEUTROPHILS# (MANUAL) 17.3 10^3/uL (1.7-8.2); BAND NEUTROPHILS % (MANUAL) 1 % (3-5); BASOPHILS % (MANUAL) 0 % (0-2); EOSINOPHILS % (MANUAL) 0 % (0-6); LYMPHOCYTES % (MANUAL) 7 % (13-45); MONOCYTES % (MANUAL) 7 % (3-13); SEGMENTED NEUTROPHILS % (MAN) 85 % (42-78); TOTAL CELLS COUNTED 100
[2018-04-06 11:35] LABS: ANISOCYTOSIS SLIGHT; PLATELET COMMENT ADEQUATE; TOXIC GRANULATION SLIGHT; TOXIC VACUOLATION PRESENT
[2018-04-06 11:47] LABS: APPEARANCE,URINE CLEAR; BILIRUBIN,URINE NEGATIVE (NEGATIVE); COLOR,URINE YELLOW; GLUCOSE, URINE >=500 mg/dL (NEGATIVE); KETONES,URINE 80 mg/dL (NEGATIVE); LEUKOCYTE ESTERASE,URINE NEGATIVE (NEGATIVE); NITRITE,URINE NEGATIVE (NEGATIVE); PROTEIN,URINE 30 mg/dL (NEGATIVE); UROBILINOGEN,URINE NEGATIVE mg/dL (<2.0)
[2018-04-06] MEDS ORDERED: NORMAL SALINE 100 ML with INSULIN REGULAR, HUMAN 100 UNIT IV PRN ×2 (12:46)
[2018-04-06] MEDS ORDERED: DEXTROSE 40% GEL 15 GM TUBE PO PRN ×2 (12:46)
[2018-04-06] MEDS ORDERED: DEXTROSE 50%-WATER 25 GM/50 ML DISP.SYRIN IV PRN ×2 (12:46)
[2018-04-06] MEDS ORDERED: GLUCAGON,HUMAN RECOMB 1 MG INJ IM PRN (12:46)
[2018-04-06] MEDS ORDERED: ONDANSETRON 4 MG TAB.RAPDIS PO PRN ×2 (12:49→13:26)
[2018-04-06] MEDS ORDERED: IPRATROPIUM/ALBUTEROL 0.5-2.5 MG/3 ML AMPUL NEB PRN (12:49)
--- NOTE | 2018-04-06 13:13 | EKG REPORT ---
SEVERITY:- ABNORMAL ECG - SINUS TACHYCARDIA PROBABLE LEFT ATRIAL ABNORMALITY NONSPECIFIC T ABNORMALITIES, INFERIOR LEADS : Confirmed by: El Giordano MD 06-Apr-2018 13:12:44
--- NOTE | 2018-04-06 13:58 | PDOC H&P ---
History of Present Illness Admission Date/PCP: 04/06/18 13:24 ANAIS ALLEN NP History of Present Illness: RHONDA WRIGHT is a 67 year old male past medical history of diabetes type 2, CAD status post PCI stent x1, CABG, hyperlipidemia, KARI, depression, anxiety, diabetic gastroparesis, who presented to ED complaining of worsening nausea associated with nonbloody, bilious vomiting and abdominal pain. Patient is insulin-dependent however he had a recent travel to [place] 9 days ago and forgot to take his insulin supplies. While at [place] last Thursday he also had some EtOH. Denies any history of alcohol abuse. Nausea and vomiting associated with epigastric abdominal pain, 6/10, constant, sharp, worse with movement, nonradiating, and nonbloody diarrhea and shortness of breath. Also endorsing polydipsia, polyuria. Denies any fever, chest pain. In ED he was found to have white blood cells 20,000, anion gap 35, BGL 500, lipase 6585 and creatinine 2.02. Abdominal CT was negative for any acute abnormalities except for gastric distention. Hospitalist was consulted for admission. Past Medical History Cardiac Medical History: Reports: Coronary Artery Disease, DVT - post knee surgery, Myocardial Infarction - x2 (2005 and 2007), Hypertension Denies: Congestive Heart Failure, Hyperlipidema, Pulmonary Embolism Pulmonary Medical History: Reports: Sleep Apnea - not compliant w/CPAP Denies: Asthma, Bronchitis, Chronic Obstructive Pulmonary Disease (COPD), Pneumonia, Tuberculosis Neurological Medical History: Denies: Seizures Endocrine Medical History: Reports: Diabetes Mellitus Type 1 Denies: Diabetes Mellitus Type 2, Hyperthyroidism, Hypothyroidism Renal/ Medical History: Denies: End Stage Renal Disease GI Medical History: Denies: Cirrhosis, Gastroesophageal Reflux Disease, Hepatitis Musculoskeltal Medical History: Denies: Arthritis Skin Medical History: Denies: Eczema, Psoriasis Psychiatric Medical History: Reports: Depression Denies: Bipolar Disorder Hematology: Denies: Anemia, Bleeding Tendencies Infectious Medical History: Denies: Clostridium Difficile, Methicillin-Resistant Staph Aureus Past Surgical History Past Surgical History: Reports: Cardiac Catheterization, Cholecystectomy, Cor onary Artery Bypass Graft - March 2016, [facility] three-vessel, Coronary Stent - August 2016, [facility]; earlier stent also, Orthopedic Surgery - Total knee replacement. Social History Smoking Status: Never Smoker Frequency of Alcohol Use: None Hx Recreational Drug Use: No Drugs: None Hx Prescription Drug Abuse: No Family History Family History: Reviewed & Not Pertinent Parental Family History Reviewed: Yes Children Family History Reviewed: Yes Sibling(s) Family History Reviewed.: Yes Medication/Allergy Home Medications: Aspirin [Ecotrin 325 mg EC Tablet] 325 mg PO DAILY 04/06/18 Bupropion HCl [Wellbutrin Xl 300mg 24hr Tablet] 300 mg PO DAILY 04/06/18 Butalb/Acetaminophen/Caffeine [Fioricet (50-325-40 mg) Tablet] 1 tab PO QIDP PRN 04/06/18 Cetirizine HCl [Zyrtec 10 mg Tablet] 10 mg PO DAILY 04/06/18 Clopidogrel Bisulfate [Plavix 75 mg Tablet] 75 mg PO DAILY 04/06/18 Cyclobenzaprine HCl [Flexeril 10 mg Tablet] 10 mg PO TIDP PRN 04/06/18 Ibuprofen [Motrin 800 mg Tablet] 800 mg PO TIDP PRN 04/06/18 Insulin Glargine,Hum.rec.anlog [Lantus Insulin 100 Unit/1 ml 10 ml] 120 units SQ DAILY 04/06/18 Insulin Lispro [Humalog Kwikpen U-200] 0 units SQ .PERSLIDINGSCALE 04/06/18 Metoprolol Tartrate [Lopressor 25 mg Tablet] 25 mg PO BID 04/06/18 Metronidazole [Flagyl 500 mg Tablet] 500 mg PO TID 04/06/18 Pantoprazole Sodium [Protonix] 40 mg PO DAILY 04/06/18 Pitavastatin Calcium [Livalo] 4 mg PO DAILY 04/06/18 Sertraline HCl [Zoloft] 100 mg PO DAILY 04/06/18 Tramadol HCl [Ultram 50 mg Tablet] 50 mg PO .ATONSETOFHEADACHE PRN MDD MAY REPEAT IN 6 HRS 04/06/18 Allergies/Adverse Reactions: No Known Allergies Allergy (Verified 04/06/18 10:07) Review of Systems Review of Systems: As Per HPI Physical Exam Vital Signs: Temp Pulse Resp BP Pulse Ox 25 H 131/79 H 99 04/06/18 12:00 04/06/18 12:00 04/06/18 12:00 Intake & Output 04/05/18 04/06/18 04/07/18 06:59 06:59 06:59 Intake Total 1000 Balance 1000 Weight 99.79 kg General appearance: PRESENT: no acute distress, well-developed, well-nourished Head exam: PRESENT: atraumatic, normocephalic Neck exam: ABSENT: carotid bruit, JVD, lymphadenopathy, thyromegaly Respiratory exam: PRESENT: clear to auscultation chris. ABSENT: rales, rhonchi, wheezes Cardiovascular exam: PRESENT: RRR, tachycardia. ABSENT: diastolic murmur, rubs, systolic murmur Pulses: PRESENT: normal dorsalis pedis pul GI/Abdominal exam: PRESENT: distended, guarding, hypoactive bowel sounds, tenderness - Epigastric. ABSENT: mass, organolmegaly, rebound Extremities exam: PRESENT: full ROM. ABSENT: calf tenderness, clubbing, pedal edema Neurological exam: PRESENT: alert, awake, oriented to person, oriented to place, oriented to time, oriented to situation, CN II-XII grossly intact. ABSENT: motor sensory deficit Skin exam: PRESENT: dry, intact, warm. ABSENT: cyanosis, rash Results Laboratory Results: 04/06/18 10:10 04/06/18 10:10 04/06/18 04/06/18 04/06/18 10:10 10:10 10:10 WBC 20.1 H RBC 5.94 H Hgb 17.6 H Hct 55.5 H MCV 93 MCH 29.6 MCHC 31.7 L RDW 15.9 H Plt Count 370 Seg Neutrophils % Not Reportable Lymphocytes % Not Reportable Monocytes % Not Reportable Eosinophils % Not Reportable Basophils % Not Reportable Absolute Neutrophils Not Reportable Absolute Lymphocytes Not Reportable Absolute Monocytes Not Reportable Absolute Eosinophils Not Reportable Absolute Basophils Not Reportable VBG pH 7.06 L* VBG pCO2 26.1 L VBG HCO3 7.2 L VBG Base Excess -21.8 Sodium 134.4 L Potassium 6.3 H* Chloride 92 L Carbon Dioxide 7 L* Anion Gap 35 H BUN 39 H Creatinine 2.02 H Est GFR ( Amer) 40 L Est GFR (Non-Af Amer) 33 L Glucose 668 H* Calcium 9.3 Magnesium 2.4 H Total Bilirubin 0.4 AST 20 ALT 30 Alkaline Phosphatase 103 Total Protein 7.6 Albumin 5.2 H Lipase 6585.6 H Urine Color Urine Appearance Urine pH Ur Specific Lane Urine Protein Urine Glucose (UA) Urine Ketones Urine Blood Urine Nitrite Ur Leukocyte Esterase Urine WBC (Auto) 04/06/18 11:30 WBC RBC Hgb Hct MCV MCH MCHC RDW Plt Count Seg Neutrophils % Lymphocytes % Monocytes % Eosinophils % Basophils % Absolute Neutrophils Absolute Lymphocytes Absolute Monocytes Absolute Eosinophils Absolute Basophils VBG pH VBG pCO2 VBG HCO3 VBG Base Excess Sodium Potassium Chloride Carbon Dioxide Anion Gap BUN Creatinine Est GFR ( Amer) Est GFR (Non-Af Amer) Glucose Calcium Magnesium Total Bilirubin AST ALT Alkaline Phosphatase Total Protein Albumin Lipase Urine Color YELLOW Urine Appearance CLEAR Urine pH 5.[address] 1.020 Urine Protein 30 H Urine Glucose (UA) >=500 H Urine Ketones 80 H Urine Blood LARGE H Urine Nitrite NEGATIVE Ur Leukocyte Esterase NEGATIVE Urine WBC (Auto) 1 04/06/18 04/06/18 10:10 10:10 Creatine Kinase 299 H CK-MB (CK-2) 4.02 Troponin I 0.022 Impressions: Abdomen/Pelvis CT 04/06/18 10:25 IMPRESSION: DISTENDED STOMACH WHICH MAY BE DUE TO GASTROPARESIS VERSUS GASTRIC OUTLET OBSTRUCTION. NO OTHER SIGNIFICANT FINDING IN THE ABDOMEN OR PELVIS. Assessment & Plan - Diagnosis (1) DKA (diabetic ketoacidoses) Qualifiers: Diabetes mellitus type: type 2 Diabetes mellitus complication detail: without coma Qualified Code(s): E11.10 - Type 2 diabetes mellitus with ketoacidosis without coma Is this a current diagnosis for this admission?: Yes Plan: Due to noncompliance. Insulin drip to be transitioned to subcutaneous insulin. BMP every 4 hours for electrolyte monitoring. (2) Pancreatitis, acute Qualifiers: Pancreatitis type: unspecified pancreatitis type Acute pancreatitis complication: no infection or necrosis Qualified Code(s): K85.90 - Acute pancreatitis without necrosis or infection, unspecified Is this a current diagnosis for this admission?: Yes Plan: Most likely EtOH induced. Triglyceride 258. Denies any abdominal trauma. Abdominal pain has improved since yesterday. Has not had a bowel movement since yesterday. Continue IV fluids, analgesics. Monitor electrolytes, for signs of infection. (3) Nausea & vomiting Is this a current diagnosis for this admission?: Yes Plan: Secondary to problem #1 #2. Monitor electrolytes and continue volume resuscitation. (4) SARAH (acute kidney injury) Is this a current diagnosis for this admission?: Yes Plan: Likely prerenal due to intravascular volume depletion caused by DKA/nausea vomiting. FeNa 1.99%. Pending Renal US. Continue volume resuscitation guided by volume status. Monitor electrolytes. (5) Gastroparesis Is this a current diagnosis for this admission?: No Plan: Chronic. Secondary to diabetes. Restart metronidazole. Outpatient GI follow- up. (6) Migraine Is this a current diagnosis for this admission?: No Plan: Start home meds. (7) Depression Qualifiers: Is this a current diagnosis for this admission?: No Plan: Denies any suicidal or homicidal ideation. Restart home meds. Outpatient PCP follow-up. (8) Diabetes mellitus type 2 in obese Is this a current diagnosis for this admission?: No Plan: Not controlled. Diabetic diet, long-acting insulin, pre-meal insulin, sliding scale insulin, diabetic education. A1c. (9) HLD (hyperlipidemia) Qualifiers: Is this a current diagnosis for this admission?: No Plan: Restart home meds. Diet and lifestyle modification. (10) HTN (hypertension) Qualifiers: Is this a current diagnosis for this admission?: No Plan: Not optimized. Restart home meds. Adjust meds as needed. Outpatient PCP follow-up. (11) Hx of CABG Is this a current diagnosis for this admission?: No Plan: Continue statins, DAPT, beta-blockers, [place].
[2018-04-06 13:59] LABS: CHOLESTEROL 298.96 mg/dL (0-200); TRIGLYCERIDES 258 mg/dL (<150)
[2018-04-06 14:09] LABS: DIRECT LDL 187 mg/dL (<100)
[2018-04-06 14:12] LABS: VLDL CHOLESTEROL 51.6 mg/dL (10-31)
[2018-04-06] MEDS ORDERED: METOPROLOL TARTRATE 25 MG TABLET PO SCH (14:30)
[2018-04-06] MEDS: MORPHINE SULFATE 10 MG/ML INJ IV PRN (14:37)
[2018-04-06] MEDS: 1/2 NORMAL SALINE 1,000 ML IV PRN (15:18)
[2018-04-06] MEDS: CLOPIDOGREL BISULFATE 75 MG TABLET PO SCH (15:30)
[2018-04-06 17:31] LABS: BLOOD UREA NITROGEN 38 mg/dL (7-20); CALCIUM 8.8 mg/dL (8.4-10.2); GLUCOSE 373 mg/dL (75-110)
[2018-04-06 17:36] LABS: CHLORIDE 104 mmol/L (98-107); SODIUM 138.8 mmol/L (137-145)
[2018-04-06 18:20] LABS: ANION GAP 26 (5-19)
[2018-04-06 18:23] LABS: POTASSIUM 5.1 mmol/L (3.6-5.0)
[2018-04-06 18:25] LABS: CARBON DIOXIDE 9 mmol/L (22-30)
[2018-04-06 19:46] LABS: BLOOD UREA NITROGEN 38 mg/dL (7-20); CALCIUM 9.2 mg/dL (8.4-10.2); GLUCOSE 251 mg/dL (75-110); POTASSIUM 5.1 mmol/L (3.6-5.0)
[2018-04-06 19:51] LABS: CARBON DIOXIDE 12 mmol/L (22-30); CHLORIDE 104 mmol/L (98-107); SODIUM 139.7 mmol/L (137-145)
[2018-04-06 19:57] LABS: ANION GAP 24 (5-19)
[2018-04-06] MEDS: FAMOTIDINE 20 MG TABLET PO SCH (21:43)
[2018-04-06 23:14] LABS: ANION GAP 13 (5-19); BLOOD UREA NITROGEN 36 mg/dL (7-20); CALCIUM 8.8 mg/dL (8.4-10.2); CARBON DIOXIDE 18 mmol/L (22-30); CHLORIDE 106 mmol/L (98-107); GLUCOSE 75 mg/dL (75-110); POTASSIUM 4.2 mmol/L (3.6-5.0); SODIUM 137.2 mmol/L (137-145)
[2018-04-07 03:30] LABS: ANION GAP 19 (5-19); BLOOD UREA NITROGEN 31 mg/dL (7-20); CALCIUM 8.4 mg/dL (8.4-10.2); CARBON DIOXIDE 12 mmol/L (22-30); CHLORIDE 104 mmol/L (98-107); GLUCOSE 247 mg/dL (75-110); SODIUM 135.4 mmol/L (137-145)
[2018-04-07] MEDS ORDERED: INSULIN LISPRO 100 UNIT/ML 3 ML VIAL SUBCUT ONE (04:00)
[2018-04-07] MEDS ORDERED: SODIUM BICARBONATE 8.4% INJ 50 MEQ/50 ML DISP.SYRIN IV ONE (04:00)
[2018-04-07] MEDS: 1/2 NORMAL SALINE 1,000 ML IV PRN (05:35)
[2018-04-07] MEDS: ACETAMINOPHEN 325 MG TABLET PO PRN (07:38)
[2018-04-07] MEDS ORDERED: DEXTROSE 5%-NORMAL SALINE 1,000 ML IV PRN (08:11)
[2018-04-07] MEDS ORDERED: CYCLOBENZAPRINE HCL 10 MG TABLET PO PRN (08:12)
[2018-04-07] MEDS: INSULIN LISPRO 100 UNIT/ML 3 ML VIAL SUBCUT SCH ×4 (08:48→21:55)
[2018-04-07] MEDS: METOPROLOL TARTRATE 25 MG TABLET PO SCH ×2 (09:08→21:55)
[2018-04-07] MEDS: ENOXAPARIN SODIUM INJ 40 MG/0.4 ML DISP.SYRIN SUBCUT SCH (09:08)
[2018-04-07] MEDS: CLOPIDOGREL BISULFATE 75 MG TABLET PO SCH (09:09)
[2018-04-07] MEDS: FAMOTIDINE 20 MG TABLET PO SCH ×2 (09:09→21:55)
[2018-04-07] MEDS: ASPIRIN 325 MG TABLET, ENT COATED PO SCH (09:09)
[2018-04-07] MEDS: DOCUSATE SODIUM 100 MG CAPSULE PO SCH (09:09)
[2018-04-07] MEDS: SERTRALINE HCL 50 MG TABLET PO SCH (09:09)
[2018-04-07] MEDS ORDERED: INSULIN GLARGINE,HUM.REC.ANLOG 1,000 UNIT/10 ML UNIT SUBCUT ONE (09:18)
[2018-04-07] MEDS: INSULIN GLARGINE,HUM.REC.ANLOG 1,000 UNIT/10 ML UNIT SUBCUT SCH (09:52)
[2018-04-07] MEDS ORDERED: (PENDING PHARMACY ID) (Pitavastatin Calcium [Livalo] 4 MG) PO SCH (10:00)
[2018-04-07] MEDS ORDERED: METRONIDAZOLE 500 MG TABLET PO SCH (10:00)
[2018-04-07] MEDS ORDERED: ASPIRIN 81 MG TABLET, CHEWABLE PO SCH (10:00)
[2018-04-07] MEDS ORDERED: METOPROLOL TARTRATE 25 MG TABLET PO SCH (10:00)
[2018-04-07] MEDS ORDERED: INSULIN GLARGINE,HUM.REC.ANLOG 300 UNIT/3 ML INSULN.PEN SUBCUT SCH (10:00)
[2018-04-07 10:10] LABS: ANION GAP 19 (5-19); BLOOD UREA NITROGEN 26 mg/dL (7-20); CALCIUM 8.6 mg/dL (8.4-10.2); CARBON DIOXIDE 13 mmol/L (22-30); CHLORIDE 104 mmol/L (98-107); GLUCOSE 259 mg/dL (75-110); POTASSIUM 4.4 mmol/L (3.6-5.0); SODIUM 135.7 mmol/L (137-145)
--- NOTE | 2018-04-07 11:02 | PDOC PROGRESS REPORT ---
Subjective Progress Note for:: 04/07/18 Subjective:: RHONDA WRIGHT is a 67 year old male past medical history of diabetes type 2, CAD status post PCI stent x1, CABG, hyperlipidemia, KARI, depression, anxiety, diabetic gastroparesis, who presented to ED complaining of worsening nausea associated with nonbloody, bilious vomiting and abdominal pain. Patient is insulin-dependent however he had a recent travel to [place] 9 days ago and forgot to take his insulin supplies. While at [place] last Thursday he also had some EtOH. Denies any history of alcohol abuse. Nausea and vomiting associated with epigastric abdominal pain, 6/10, constant, sharp, worse with movement, nonradiating, and nonbloody diarrhea and shortness of breath. Also endorsing polydipsia, polyuria. Denies any fever, chest pain. In ED he was found to have white blood cells 20,000, anion gap 35, BGL 500, lipase 6585 and creatinine 2.02. Abdominal CT was negative for any acute abnormalities except for gastric distention. Hospitalist was consulted for admission. 04/07/2018. No acute events overnight. Nausea vomiting resolved. Persistent abdominal pain however improved compared to yesterday. No bowel movement, has not been able to eat due to low appetite. Complaining of headache. Denies any fever, chills, chest pain or any urinary symptoms. Reason For Visit: DKA,PANCREATITIS Physical Exam Vital Signs: Temp Pulse Resp BP Pulse Ox 97.6 F 108 H 20 161/74 H 100 04/07/18 07:33 04/07/18 07:33 04/07/18 07:33 04/07/18 07:33 04/07/18 07:33 Intake & Output 04/06/18 04/07/18 04/08/18 06:59 06:59 06:59 Intake Total 2544 Output Total 1100 Balance 1444 Weight 94.1 kg General appearance: PRESENT: no acute distress, well-developed, well-nourished Head exam: PRESENT: atraumatic, normocephalic Neck exam: ABSENT: carotid bruit, JVD, lymphadenopathy, thyromegaly Respiratory exam: PRESENT: clear to auscultation chris. ABSENT: rales, rhonchi, wheezes Cardiovascular exam: PRESENT: RRR. ABSENT: diastolic murmur, rubs, systolic murmur GI/Abdominal exam: PRESENT: guarding, normal bowel sounds, soft, tenderness - Epigastric tenderness.. ABSENT: distended, mass, organolmegaly, rebound Musculoskeletal exam: PRESENT: ambulatory, deformity, dislocation, full ROM, normal inspection, tenderness, other Neurological exam: PRESENT: alert, awake, oriented to person, oriented to place, oriented to time, oriented to situation, CN II-XII grossly intact. ABSENT: motor sensory deficit Skin exam: PRESENT: dry, intact, warm. ABSENT: cyanosis, rash Results Laboratory Results: 04/06/18 10:10 04/07/18 09:30 04/06/18 04/06/18 04/06/18 10:10 10:10 10:10 WBC 20.1 H RBC 5.94 H Hgb 17.6 H Hct 55.5 H MCV 93 MCH 29.6 MCHC 31.7 L RDW 15.9 H Plt Count 370 Seg Neutrophils % Not Reportable Lymphocytes % Not Reportable Monocytes % Not Reportable Eosinophils % Not Reportable Basophils % Not Reportable Absolute Neutrophils Not Reportable Absolute Lymphocytes Not Reportable Absolute Monocytes Not Reportable Absolute Eosinophils Not Reportable Absolute Basophils Not Reportable Sodium 134.4 L Potassium 6.3 H* Chloride 92 L Carbon Dioxide 7 L* Anion Gap 35 H BUN 39 H Creatinine 2.02 H Est GFR ( Amer) 40 L Est GFR (Non-Af Amer) 33 L Glucose 668 H* Calcium 9.3 Magnesium 2.4 H Total Bilirubin 0.4 AST 20 ALT 30 Alkaline Phosphatase 103 Total Protein 7.6 Albumin 5.2 H Triglycerides 258 H Cholesterol 298.96 H LDL Cholesterol Direct 187 H VLDL Cholesterol 51.6 H HDL Cholesterol 79 Lipase 6585.6 H Urine Color Urine Appearance Urine pH Ur Specific [place] Urine Protein Urine Glucose (UA) Urine Ketones Urine Blood Urine Nitrite Ur Leukocyte Esterase Urine WBC (Auto) 04/06/18 04/06/18 04/06/18 11:30 15:31 19:05 WBC RBC Hgb Hct MCV MCH MCHC RDW Plt Count Seg Neutrophils % Lymphocytes % Monocytes % Eosinophils % Basophils % Absolute Neutrophils Absolute Lymphocytes Absolute Monocytes Absolute Eosinophils Absolute Basophils Sodium 138.8 139.7 Potassium 5.1 H D 5.1 H Chloride 104 104 Carbon Dioxide 9 L* 12 L Anion Gap 26 H 24 H BUN 38 H 38 H Creatinine 1.39 H 1.18 Est GFR ( Amer) > 60 > 60 Est GFR (Non-Af Amer) 51 L > 60 Glucose 373 H 251 H Calcium 8.8 9.2 Magnesium Total Bilirubin AST ALT Alkaline Phosphatase Total Protein Albumin Triglycerides Cholesterol LDL Cholesterol Direct VLDL Cholesterol HDL Cholesterol Lipase Urine Color YELLOW Urine Appearance CLEAR Urine pH 5.[address] [place] 1.020 Urine Protein 30 H Urine Glucose (UA) >=500 H Urine Ketones 80 H Urine Blood LARGE H Urine Nitrite NEGATIVE Ur Leukocyte Esterase NEGATIVE Urine WBC (Auto) 1 04/06/18 04/07/18 04/07/18 22:45 03:05 03:05 WBC RBC Hgb Hct MCV MCH MCHC RDW Plt Count Seg Neutrophils % Lymphocytes % Monocytes % Eosinophils % Basophils % Absolute Neutrophils Absolute Lymphocytes Absolute Monocytes Absolute Eosinophils Absolute Basophils Sodium 137.2 135.4 L Potassium 4.2 5.0 Chloride 106 104 Carbon Dioxide 18 L 12 L Anion Gap 13 19 BUN 36 H 31 H Creatinine 0.95 0.75 Est GFR ( Amer) > 60 > 60 Est GFR (Non-Af Amer) > 60 > 60 Glucose 75 247 H Calcium 8.8 8.4 Magnesium Total Bilirubin AST ALT Alkaline Phosphatase Total Protein Albumin Triglycerides Cholesterol LDL Cholesterol Direct VLDL Cholesterol HDL Cholesterol Lipase 1177.5 H Urine Color Urine Appearance Urine pH Ur Specific [place] Urine Protein Urine Glucose (UA) Urine Ketones Urine Blood Urine Nitrite Ur Leukocyte Esterase Urine WBC (Auto) 04/07/18 09:30 WBC RBC Hgb Hct MCV MCH MCHC RDW Plt Count Seg Neutrophils % Lymphocytes % Monocytes % Eosinophils % Basophils % Absolute Neutrophils Absolute Lymphocytes Absolute Monocytes Absolute Eosinophils Absolute Basophils Sodium 135.7 L Potassium 4.4 Chloride 104 Carbon Dioxide 13 L Anion Gap 19 BUN 26 H Creatinine 0.80 Est GFR ( Amer) > 60 Est GFR (Non-Af Amer) > 60 Glucose 259 H Calcium 8.6 Magnesium Total Bilirubin AST ALT Alkaline Phosphatase Total Protein Albumin Triglycerides Cholesterol LDL Cholesterol Direct VLDL Cholesterol HDL Cholesterol Lipase Urine Color Urine Appearance Urine pH Ur Specific [place] Urine Protein Urine Glucose (UA) Urine Ketones Urine Blood Urine Nitrite Ur Leukocyte Esterase Urine WBC (Auto) 04/06/18 04/06/18 10:10 10:10 Creatine Kinase 299 H CK-MB (CK-2) 4.02 Troponin I 0.022 Impressions: Abdomen/Pelvis CT 04/06/18 10:25 IMPRESSION: DISTENDED STOMACH WHICH MAY BE DUE TO GASTROPARESIS VERSUS GASTRIC OUTLET OBSTRUCTION. NO OTHER SIGNIFICANT FINDING IN THE ABDOMEN OR PELVIS. Assessment & Plan - Diagnosis (1) Pancreatitis, acute Qualifiers: Pancreatitis type: unspecified pancreatitis type Acute pancreatitis complication: no infection or necrosis Qualified Code(s): K85.90 - Acute pancreatitis without necrosis or infection, unspecified Is this a current diagnosis for this admission?: Yes Plan: Most likely EtOH induced. Triglyceride 258. Denies any abdominal trauma. Abdominal pain has improved since yesterday. Has not had a bowel movement since yesterday. Continue IV fluids, analgesics. Monitor electrolytes, for signs of infection. (2) DKA (diabetic ketoacidoses) Qualifiers: Diabetes mellitus type: type 2 Diabetes mellitus complication detail: without coma Qualified Code(s): E11.10 - Type 2 diabetes mellitus with ketoacidosis without coma Is this a current diagnosis for this admission?: Yes Plan: Resolved. Anion gap within normal limits. Patient was transitioned to subcutaneous insulin. Due to noncompliance. Insulin drip to be transitioned to subcutaneous insulin. BMP every 4 hours for electrolyte monitoring. (3) Nausea & vomiting Is this a current diagnosis for this admission?: Yes Plan: Resolved. Secondary to problem #1 #2. Monitor electrolytes and continue volume resuscitation. (4) SARAH (acute kidney injury) Is this a current diagnosis for this admission?: Yes Plan: Resolved. Creatinine within normal limits. Likely prerenal due to intravascular volume depletion caused by DKA/nausea vomiting. FeNa 1.99%. Pending Renal US. (5) Gastroparesis Is this a current diagnosis for this admission?: No Plan: Chronic. Secondary to diabetes. Restart metronidazole. Outpatient GI follow- up. (6) Migraine Is this a current diagnosis for this admission?: No Plan: Start home meds. (7) Depression Qualifiers: Is this a current diagnosis for this admission?: No Plan: Denies any suicidal or homicidal ideation. Restart home meds. Outpatient PCP tamir elias-pearl. (8) Diabetes mellitus type 2 in obese Is this a current diagnosis for this admission?: No Plan: Not controlled. Diabetic diet, long-acting insulin, pre-meal insulin, sliding scale insulin, diabetic education. A1c. (9) HLD (hyperlipidemia) Qualifiers: Is this a current diagnosis for this admission?: No Plan: Restart home meds. Diet and lifestyle modification. (10) HTN (hypertension) Qualifiers: Is this a current diagnosis for this admission?: No Plan: Not optimized. Restart home meds. Adjust meds as needed. Outpatient PCP follow-up. (11) Hx of CABG Is this a current diagnosis for this admission?: No Plan: Continue statins, DAPT, beta-blockers, [place].
[2018-04-07] MEDS: BUPROPION HCL 100 MG TABLET PO SCH ×2 (13:39→21:55)
[2018-04-07] MEDS: MORPHINE SULFATE 10 MG/ML INJ IV PRN (13:57)
[2018-04-07] MEDS: METRONIDAZOLE 500 MG TABLET PO SCH ×2 (14:10→21:54)
[2018-04-07] MEDS: OXYCODONE-ACETAMINOPHEN 5-325 MG TABLET PO PRN (14:13)
[2018-04-07 18:40] LABS: ANION GAP 12 (5-19); BLOOD UREA NITROGEN 22 mg/dL (7-20); CALCIUM 8.5 mg/dL (8.4-10.2); CARBON DIOXIDE 18 mmol/L (22-30); CHLORIDE 107 mmol/L (98-107); GLUCOSE 180 mg/dL (75-110); POTASSIUM 4.1 mmol/L (3.6-5.0); SODIUM 137.2 mmol/L (137-145)
[2018-04-07] MEDS: NORMAL SALINE 1000 ML 1,000 ML IV PRN ×2 (19:35→23:32)
[2018-04-07] MEDS: ATORVASTATIN CALCIUM 20 MG TABLET PO SCH (21:54)
[2018-04-07] MEDS: BUTALB/ACETAMINOPHEN/CAFFEINE 1 TAB EACH PO PRN (21:54)
[2018-04-08] MEDS: BUTALB/ACETAMINOPHEN/CAFFEINE 1 TAB EACH PO PRN (05:00)
[2018-04-08] MEDS: BUPROPION HCL 100 MG TABLET PO SCH ×3 (05:00→22:01)
[2018-04-08] MEDS: METRONIDAZOLE 500 MG TABLET PO SCH ×3 (05:00→22:01)
[2018-04-08 05:33] LABS: ALANINE AMINOTRANSFERASE 25 U/L (21-72); ALBUMIN 3.5 g/dL (3.5-5.0); ALKALINE PHOSPHATASE 64 U/L (38-126); ANION GAP 9 (5-19); ASPARTATE AMINO TRANSFERASE 25 U/L (17-59); BILIRUBIN,DIRECT 0.1 mg/dL (0.0-0.4); BILIRUBIN,TOTAL 0.6 mg/dL (0.2-1.3); BLOOD UREA NITROGEN 19 mg/dL (7-20); CALCIUM 8.4 mg/dL (8.4-10.2); CARBON DIOXIDE 23 mmol/L (22-30); CHLORIDE 107 mmol/L (98-107); GLUCOSE 164 mg/dL (75-110); POTASSIUM 3.5 mmol/L (3.6-5.0); TOTAL PROTEIN 5.9 g/dL (6.3-8.2)
[2018-04-08] MEDS: NORMAL SALINE 1000 ML 1,000 ML IV PRN (07:09)
[2018-04-08 07:12] LABS: ABSOLUTE LYMPHOCYTES (AUTO) 1.2 10^3/uL (0.5-4.7); ABSOLUTE NEUT (AUTO) 6.9 10^3/uL (1.7-8.2); BASOPHILS % (AUTO) 0.2 % (0-2); EOSINOPHILS % (AUTO) 0.1 % (0-6); HEMATOCRIT 42.4 % (37.9-51.0); MEAN CORPUSCULAR HEMOGLOBIN 29.7 pg (27.0-33.4); MEAN CORPUSCULAR HGB CONC 34.8 g/dL (32.0-36.0); MONOCYTES % (AUTO) 10.8 % (3-13); PLATELET COUNT 198 10^3/uL (150-450); RED BLOOD COUNT 4.96 10^6/uL (4.35-5.55); RED CELL DISTRIBUTION WIDTH 15.3 % (11.5-14.0); SEGMENTED NEUTROPHILS % (AUTO) 75.9 % (42-78); TOTAL CELLS COUNTED % (AUTO) 100 %; WHITE BLOOD COUNT 9.1 10^3/uL (4.0-10.5)
[2018-04-08 07:42] LABS: HEMOGLOBIN 14.8 g/dL (13.5-17.0)
[2018-04-08 07:45] LABS: MEAN CORPUSCULAR VOLUME 85 fl (80-97)
[2018-04-08] MEDS: INSULIN LISPRO 100 UNIT/ML 3 ML VIAL SUBCUT SCH ×4 (08:21→21:52)
[2018-04-08] MEDS: OXYCODONE-ACETAMINOPHEN 5-325 MG TABLET PO PRN ×2 (08:35→17:36)
--- NOTE | 2018-04-08 09:00 | RADIOLOGY REPORT (SQ) ---
EXAM DESCRIPTION: U/S RETROPERITON (RENAL/AORTA) COMPLETED DATE/TIME: 04/08/2018 7:29 am REASON FOR STUDY: SARAH COMPARISON: None. TECHNIQUE: Dynamic and static grayscale images acquired of the kidneys and bladder and recorded on P ACS. Additional selected color Doppler and spectral images recorded. LIMITATIONS: None. FINDINGS: RIGHT KIDNEY: Normal size, 12.3 cm in length. Normal echogenicity. No solid or suspicious masses. No hydronephrosis. No calcifications. LEFT KIDNEY: Normal size, 13.2. Normal echogenicity. No solid or suspicious masses. No hydronephrosi s. No calcifications. BLADDER: No masses. OTHER FINDINGS: No other significant finding. IMPRESSION: NORMAL RENAL AND BLADDER ULTRASOUND. TECHNICAL DOCUMENTATION: JOB ID: [id number] [employer]- All Rights Reserved Reading location - IP/workstation name: [email or web address]
--- NOTE | 2018-04-08 09:02 | PDOC PROGRESS REPORT ---
Subjective Progress Note for:: 04/08/18 Subjective:: RHONDA WRIGHT is a 67 year old male past medical history of diabetes type 2, CAD status post PCI stent x1, CABG, hyperlipidemia, KARI, depression, anxiety, diabetic gastroparesis, who presented to ED complaining of worsening nausea associated with nonbloody, bilious vomiting and abdominal pain. Patient is insulin-dependent however he had a recent travel to [place] 9 days ago and forgot to take his insulin supplies. While at [place] last Thursday he also had some EtOH. Denies any history of alcohol abuse. Nausea and vomiting associated with epigastric abdominal pain, 6/10, constant, sharp, worse with movement, nonradiating, and nonbloody diarrhea and shortness of breath. Also endorsing polydipsia, polyuria. Denies any fever, chest pain. In ED he was found to have white blood cells 20,000, anion gap 35, BGL 500, lipase 6585 and creatinine 2.02. Abdominal CT was negative for any acute abnormalities except for gastric distention. Hospitalist was consulted for admission. 04/07/2018. No acute events overnight. Nausea vomiting resolved. Persistent abdominal pain however improved compared to yesterday. No bowel movement, has not been able to eat due to low appetite. Complaining of headache. Denies any fever, chills, chest pain or any urinary symptoms. 04/08/2018. No acute events overnight. Patient still complaining of persistent epigastric abdominal pain 3/5, nonradiating, sharp, worsened with movement, is passing flatus, has not had a bowel movement, denies any fever, chills, nausea, vomiting, diarrhea or any urinary symptoms. He has an appetite but not has been able to tolerate p.o. intake. Reason For Visit: DKA,PANCREATITIS Physical Exam Vital Signs: Temp Pulse Resp BP Pulse Ox 97.9 F 81 16 149/78 H 99 04/08/18 07:28 04/08/18 07:28 04/08/18 07:28 04/08/18 07:28 04/08/18 07:28 Intake & Output 04/07/18 04/08/18 04/09/18 06:59 06:59 06:59 Intake Total 2544 2601 Output Total 1100 2800 Balance 1444 -199 Weight 94.1 kg 96.2 kg General appearance: PRESENT: no acute distress, well-developed, well-nourished Head exam: PRESENT: atraumatic, normocephalic Respiratory exam: PRESENT: clear to auscultation chris. ABSENT: rales, rhonchi, wheezes Cardiovascular exam: PRESENT: RRR. ABSENT: diastolic murmur, rubs, systolic murmur GI/Abdominal exam: PRESENT: normal bowel sounds, soft, tenderness - Epigastric tenderness.. ABSENT: distended, guarding, mass, organolmegaly, rebound Extremities exam: PRESENT: full ROM. ABSENT: calf tenderness, clubbing, pedal edema Neurological exam: PRESENT: alert, awake, oriented to person, oriented to place, oriented to time, oriented to situation, CN II-XII grossly intact. ABSENT: motor sensory deficit Skin exam: PRESENT: dry, intact, warm. ABSENT: cyanosis, rash Results Laboratory Results: 04/08/18 06:47 04/08/18 04:31 04/07/18 04/07/18 04/07/18 03:05 09:30 17:57 WBC RBC Hgb Hct MCV MCH MCHC RDW Plt Count Seg Neutrophils % Lymphocytes % Monocytes % Eosinophils % Basophils % Absolute Neutrophils Absolute Lymphocytes Absolute Monocytes Absolute Eosinophils Absolute Basophils Sodium 135.7 L 137.2 Potassium 4.4 4.1 Chloride 104 107 Carbon Dioxide 13 L 18 L Anion Gap 19 12 BUN 26 H 22 H Creatinine 0.80 0.60 Est GFR ( Amer) > 60 > 60 Est GFR (Non-Af Amer) > 60 > 60 Glucose 259 H 180 H Calcium 8.6 8.5 Magnesium Total Bilirubin AST ALT Alkaline Phosphatase Total Protein Albumin Lipase 1177.5 H 04/08/18 04/08/18 04/08/18 04:31 04:31 06:47 WBC Cancelled 9.1 RBC Cancelled 4.96 Hgb Cancelled 14.8 D Hct Cancelled 42.4 MCV Cancelled 85 D MCH Cancelled 29.7 MCHC Cancelled 34.8 RDW Cancelled 15.3 H Plt Count Cancelled 198 Seg Neutrophils % Cancelled 75.9 Lymphocytes % Cancelled 13.0 Monocytes % Cancelled 10.8 Eosinophils % Cancelled 0.1 Basophils % Cancelled 0.2 Absolute Neutrophils Cancelled 6.9 Absolute Lymphocytes Cancelled 1.2 Absolute Monocytes Cancelled 1.0 Absolute Eosinophils Cancelled 0.0 Absolute Basophils Cancelled 0.0 Sodium 139.0 Potassium 3.5 L Chloride 107 Carbon Dioxide 23 Anion Gap 9 BUN 19 Creatinine 0.54 Est GFR ( Amer) > 60 Est GFR (Non-Af Amer) > 60 Glucose 164 H Calcium 8.4 Magnesium 2.3 Total Bilirubin 0.6 AST 25 ALT 25 Alkaline Phosphatase 64 Total Protein 5.9 L Albumin 3.5 Lipase 04/06/18 04/06/18 10:10 10:10 Creatine Kinase 299 H CK-MB (CK-2) 4.02 Troponin I 0.022 Impressions: Abdomen/Pelvis CT 04/06/18 10:25 IMPRESSION: DISTENDED STOMACH WHICH MAY BE DUE TO GASTROPARESIS VERSUS GASTRIC OUTLET OBSTRUCTION. NO OTHER SIGNIFICANT FINDING IN THE ABDOMEN OR PELVIS. Assessment & Plan - Diagnosis (1) Pancreatitis, acute Qualifiers: Pancreatitis type: unspecified pancreatitis type Acute pancreatitis complication: no infection or necrosis Qualified Code(s): K85.90 - Acute pancreatitis without necrosis or infection, unspecified Is this a current diagnosis for this admission?: Yes Plan: Most likely EtOH induced. Triglyceride 258. Denies any abdominal trauma. Mild improvement of abdominal pain. Still p.o. tolerant. Has not had any vomiting. Passes flatus, no bowel movement since admission. CBC within normal limits. Blood cultures negative. Continue IV fluids guided by volume status, analgesics. Advance diet as tolerated. Start with clear liquids. Monitor electrolytes, for signs of infection. (2) Nausea & vomiting Is this a current diagnosis for this admission?: Yes Plan: Persistent nausea. Has not had any vomiting in the last 24 hours. Due to problem #1. Continue supportive measures. (3) SARAH (acute kidney injury) Is this a current diagnosis for this admission?: Yes Plan: Resolved. Creatinine within normal limits. Likely prerenal due to intravascular volume depletion caused by DKA/nausea vomiting. FeNa 1.99%. Pending Renal US. (4) Gastroparesis Is this a current diagnosis for this admission?: No Plan: Chronic. Secondary to diabetes. Restart metronidazole. Outpatient GI follow- up. (5) Migraine Is this a current diagnosis for this admission?: No Plan: Start home meds. (6) Depression Qualifiers: Is this a current diagnosis for this admission?: No Plan: Denies any suicidal or homicidal ideation. Restart home meds. Outpatient PCP follow-up. (7) Diabetes mellitus type 2 in obese Is this a current diagnosis for this admission?: No Plan: Controlled. Continue diabetic diet, long-acting insulin, pre-meal insulin, sliding scale insulin, diabetic education. A1c. (8) HLD (hyperlipidemia) Qualifiers: Is this a current diagnosis for this admission?: No Plan: Restart home meds. Diet and lifestyle modification. (9) HTN (hypertension) Qualifiers: Is this a current diagnosis for this admission?: No Plan: Not optimized. Continue beta-blockers. Started on low-dose [place]. Adjust dose as needed. Outpatient PCP follow-up. (10) Hx of CABG Is this a current diagnosis for this admission?: No Plan: Continue statins, DAPT, beta-blockers, [place]. (11) DKA (diabetic ketoacidoses) Qualifiers: Diabetes mellitus type: type 2 Diabetes mellitus complication detail: without coma Qualified Code(s): E11.10 - Type 2 diabetes mellitus with ketoacidosis without coma Is this a current diagnosis for this admission?: Yes Plan: Resolved. Anion gap within normal limits. Patient was transitioned to subcutaneous insulin. Due to noncompliance. Insulin drip to be transitioned to subcutaneous insulin. BMP every 4 hours for electrolyte monitoring.
[2018-04-08] MEDS ORDERED: POTASSIUM CHLORIDE 20 MEQ/15 ML UDCUP PO ONE (09:45)
[2018-04-08] MEDS: METOPROLOL TARTRATE 25 MG TABLET PO SCH ×2 (09:50→22:01)
[2018-04-08] MEDS: ASPIRIN 325 MG TABLET, ENT COATED PO SCH (09:50)
[2018-04-08] MEDS: LISINOPRIL 5 MG TABLET PO SCH (09:50)
[2018-04-08] MEDS: CLOPIDOGREL BISULFATE 75 MG TABLET PO SCH (09:50)
[2018-04-08] MEDS: ENOXAPARIN SODIUM INJ 40 MG/0.4 ML DISP.SYRIN SUBCUT SCH (09:50)
[2018-04-08] MEDS: FAMOTIDINE 20 MG TABLET PO SCH ×2 (09:50→22:01)
[2018-04-08] MEDS: DOCUSATE SODIUM 100 MG CAPSULE PO SCH (09:51)
[2018-04-08] MEDS: INSULIN GLARGINE,HUM.REC.ANLOG 1,000 UNIT/10 ML UNIT SUBCUT SCH (09:51)
[2018-04-08] MEDS: SERTRALINE HCL 50 MG TABLET PO SCH (09:51)
[2018-04-08] MEDS: MORPHINE SULFATE 10 MG/ML INJ IV PRN (13:33)
[2018-04-08] MEDS: ATORVASTATIN CALCIUM 20 MG TABLET PO SCH (22:01)
[2018-04-08] MEDS: ACETAMINOPHEN 325 MG TABLET PO PRN (22:02)
[2018-04-09] MEDS: NORMAL SALINE 1000 ML 1,000 ML IV PRN ×3 (01:19→17:11)
[2018-04-09] MEDS: OXYCODONE-ACETAMINOPHEN 5-325 MG TABLET PO PRN (04:51)
[2018-04-09 04:56] LABS: ABSOLUTE LYMPHOCYTES (AUTO) 1.4 10^3/uL (0.5-4.7); ABSOLUTE MONOCYTES (AUTO) 0.8 10^3/uL (0.1-1.4); ABSOLUTE NEUT (AUTO) 4.7 10^3/uL (1.7-8.2); BASOPHILS % (AUTO) 0.5 % (0-2); EOSINOPHILS % (AUTO) 0.3 % (0-6); HEMOGLOBIN 14.1 g/dL (13.5-17.0); LYMPHOCYTES % (AUTO) 20.4 % (13-45); MEAN CORPUSCULAR HEMOGLOBIN 29.2 pg (27.0-33.4); MEAN CORPUSCULAR HGB CONC 34.4 g/dL (32.0-36.0); MEAN CORPUSCULAR VOLUME 85 fl (80-97); MONOCYTES % (AUTO) 11.2 % (3-13); PLATELET COUNT 187 10^3/uL (150-450); RED BLOOD COUNT 4.83 10^6/uL (4.35-5.55); RED CELL DISTRIBUTION WIDTH 14.5 % (11.5-14.0); SEGMENTED NEUTROPHILS % (AUTO) 67.6 % (42-78); TOTAL CELLS COUNTED % (AUTO) 100 %; WHITE BLOOD COUNT 6.9 10^3/uL (4.0-10.5)
[2018-04-09 05:19] LABS: ALANINE AMINOTRANSFERASE 16 U/L (21-72); ALKALINE PHOSPHATASE 54 U/L (38-126); ANION GAP 8 (5-19); ASPARTATE AMINO TRANSFERASE 16 U/L (17-59); BILIRUBIN,DIRECT 0.2 mg/dL (0.0-0.4); BILIRUBIN,TOTAL 0.8 mg/dL (0.2-1.3); BLOOD UREA NITROGEN 12 mg/dL (7-20); CALCIUM 8.2 mg/dL (8.4-10.2); CARBON DIOXIDE 25 mmol/L (22-30); CHLORIDE 108 mmol/L (98-107); POTASSIUM 3.1 mmol/L (3.6-5.0); SODIUM 140.6 mmol/L (137-145); TOTAL PROTEIN 5.1 g/dL (6.3-8.2)
[2018-04-09 05:25] LABS: GLUCOSE 61 mg/dL (75-110)
[2018-04-09] MEDS: METRONIDAZOLE 500 MG TABLET PO SCH ×3 (05:48→21:54)
[2018-04-09] MEDS: BUPROPION HCL 100 MG TABLET PO SCH ×3 (05:48→21:54)
--- NOTE | 2018-04-09 08:09 | PDOC PROGRESS REPORT ---
Subjective Progress Note for:: 04/09/18 Subjective:: RHONDA WRIGHT is a 67 year old male past medical history of diabetes type 2, CAD status post PCI stent x1, CABG, hyperlipidemia, KARI, depression, anxiety, diabetic gastroparesis, who presented to ED complaining of worsening nausea associated with nonbloody, bilious vomiting and abdominal pain. Patient is insulin-dependent however he had a recent travel to [place] 9 days ago and forgot to take his insulin supplies. While at [place] last Thursday he also had some EtOH. Denies any history of alcohol abuse. Nausea and vomiting associated with epigastric abdominal pain, 6/10, constant, sharp, worse with movement, nonradiating, and nonbloody diarrhea and shortness of breath. Also endorsing polydipsia, polyuria. Denies any fever, chest pain. In ED he was found to have white blood cells 20,000, anion gap 35, BGL 500, lipase 6585 and creatinine 2.02. Abdominal CT was negative for any acute abnormalities except for gastric distention. Hospitalist was consulted for admission. 04/07/2018. No acute events overnight. Nausea vomiting resolved. Persistent abdominal pain however improved compared to yesterday. No bowel movement, has not been able to eat due to low appetite. Complaining of headache. Denies any fever, chills, chest pain or any urinary symptoms. 04/08/2018. No acute events overnight. Patient still complaining of persistent epigastric abdominal pain 3/5, nonradiating, sharp, worsened with movement, is passing flatus, has not had a bowel movement, denies any fever, chills, nausea, vomiting, diarrhea or any urinary symptoms. He has an appetite but not has been able to tolerate p.o. intake. 04/09/2018. No acute events overnight. Patient still complaining of persistent epigastric abdominal pain but much better than yesterday. Nonradiating, sharp worse with movement. Passing flatus has not had a bowel movement. Patient tried to eat but could not tolerate p.o. intake. He denies any fever, chills nausea, vomiting, diarrhea or any urinary symptoms. Reason For Visit: DKA,PANCREATITIS Physical Exam Vital Signs: Temp Pulse Resp BP Pulse Ox 97.7 F 73 16 131/71 H 96 04/09/18 03:19 04/09/18 03:19 04/09/18 03:19 04/09/18 03:19 04/09/18 03:19 Intake & Output 04/08/18 04/09/18 04/10/18 06:59 06:59 06:59 Intake Total 2601 2414 Output Total 2800 3150 Balance -199 -736 Weight 96.2 kg 96.8 kg General appearance: PRESENT: no acute distress, well-developed, well-nourished Head exam: PRESENT: atraumatic, normocephalic Respiratory exam: PRESENT: clear to auscultation chris. ABSENT: rales, rhonchi, w heezes Cardiovascular exam: PRESENT: RRR. ABSENT: diastolic murmur, rubs, systolic murmur GI/Abdominal exam: PRESENT: guarding, normal bowel sounds, soft, tenderness - Epigastric. ABSENT: distended, mass, organolmegaly, rebound Extremities exam: PRESENT: full ROM. ABSENT: calf tenderness, clubbing, pedal edema Neurological exam: PRESENT: alert, awake, oriented to person, oriented to place, oriented to time, oriented to situation, CN II-XII grossly intact. ABSENT: motor sensory deficit Results Laboratory Results: 04/09/18 04:26 04/09/18 04:26 04/09/18 04/09/18 04:26 04:26 WBC 6.9 RBC 4.83 Hgb 14.1 Hct 41.0 MCV 85 MCH 29.2 MCHC 34.4 RDW 14.5 H Plt Count 187 Seg Neutrophils % 67.6 Lymphocytes % 20.4 Monocytes % 11.2 Eosinophils % 0.3 Basophils % 0.5 Absolute Neutrophils 4.7 Absolute Lymphocytes 1.4 Absolute Monocytes 0.8 Absolute Eosinophils 0.0 Absolute Basophils 0.0 Sodium 140.6 Potassium 3.1 L Chloride 108 H Carbon Dioxide 25 Anion Gap 8 BUN 12 Creatinine 0.43 L Est GFR ( Amer) > 60 Est GFR (Non-Af Amer) > 60 Glucose 61 L Calcium 8.2 L Magnesium 2.1 Total Bilirubin 0.8 AST 16 L ALT 16 L Alkaline Phosphatase 54 Total Protein 5.1 L Albumin 3.0 L 04/06/18 04/06/18 10:10 10:10 Creatine Kinase 299 H CK-MB (CK-2) 4.02 Troponin I 0.022 Impressions: Abdomen/Pelvis CT 04/06/18 10:25 IMPRESSION: DISTENDED STOMACH WHICH MAY BE DUE TO GASTROPARESIS VERSUS GASTRIC OUTLET OBSTRUCTION. NO OTHER SIGNIFICANT FINDING IN THE ABDOMEN OR PELVIS. Renal Ultrasound 04/08/18 00:00 IMPRESSION: NORMAL RENAL AND BLADDER ULTRASOUND. Assessment & Plan - Diagnosis (1) Pancreatitis, acute Qualifiers: Pancreatitis type: unspecified pancreatitis type Acute pancreatitis complication: no infection or necrosis Qualified Code(s): K85.90 - Acute pancreatitis without necrosis or infection, unspecified Is this a current diagnosis for this admission?: Yes Plan: Most likely EtOH induced. Triglyceride 258. Denies any abdominal trauma. Moderate improvement of abdominal pain. Still not p.o. tolerant . Has not had any vomiting. Passes flatus, no bowel movement since admission. CBC within n ormal limits. Blood cultures negative. Continue IV fluids guided by volume status, analgesics. Advance diet as tolerated. Start with clear liquids. Monitor electrolytes, monitor for signs of infection. (2) Nausea & vomiting Is this a current diagnosis for this admission?: Yes Plan: Persistent nausea. Has not had any vomiting in the last 24 hours. Due to problem #1. Continue supportive measures. (3) SARAH (acute kidney injury) Is this a current diagnosis for this admission?: Yes Plan: Resolved. Creatinine within normal limits. Likely prerenal due to intravascular volume depletion caused by DKA/nausea vomiting. FeNa 1.99%. Pending Renal US. (4) Gastroparesis Is this a current diagnosis for this admission?: No Plan: Chronic. Secondary to diabetes. Restart metronidazole. Outpatient GI follow- up. (5) Migraine Is this a current diagnosis for this admission?: No Plan: Start home meds. (6) Depression Qualifiers: Is this a current diagnosis for this admission?: No Plan: Denies any suicidal or homicidal ideation. Restart home meds. Outpatient PCP follow-up. (7) Diabetes mellitus type 2 in obese Is this a current diagnosis for this admission?: No Plan: Controlled. Continue diabetic diet, long-acting insulin, pre-meal insulin, sliding scale insulin, diabetic education. A1c. (8) HLD (hyperlipidemia) Qualifiers: Is this a current diagnosis for this admission?: No Plan: Restart home meds. Diet and lifestyle modification. (9) HTN (hypertension) Qualifiers: Is this a current diagnosis for this admission?: No Plan: Not optimized. Continue beta-blockers. Started on low-dose [place]. Adjust dose as needed. Outpatient PCP follow-up. (10) Hx of CABG Is this a current diagnosis for this admission?: No Plan: Continue statins, DAPT, beta-blockers, [place]. (11) DKA (diabetic ketoacidoses) Qualifiers: Diabetes mellitus type: type 2 Diabetes mellitus complication detail: without coma Qualified Code(s): E11.10 - Type 2 diabetes mellitus with ketoacidosis without coma Is this a current diagnosis for this admission?: Yes Plan: Resolved. Anion gap within normal limits. Patient was transitioned to subcutaneous insulin. Due to noncompliance. Insulin drip to be transitioned to subcutaneous insulin. BMP every 4 hours for electrolyte monitoring. (12) Hypoglycemia Is this a current diagnosis for this admission?: Yes Plan: Patient has been p.o. tolerant and received his regular insulin dosage which may have caused his hypoglycemia. Hypoglycemic protocol. Hold Lantus dosage today restart once p.o. tolerant. (13) Hypokalemia Is this a current diagnosis for this admission?: Yes Plan: Replaced. BMP tomorrow.
[2018-04-09] MEDS: INSULIN LISPRO 100 UNIT/ML 3 ML VIAL SUBCUT SCH ×4 (08:14→21:53)
[2018-04-09] MEDS: SERTRALINE HCL 50 MG TABLET PO SCH (09:23)
[2018-04-09] MEDS: METOPROLOL TARTRATE 25 MG TABLET PO SCH ×2 (09:24→21:54)
[2018-04-09] MEDS: FAMOTIDINE 20 MG TABLET PO SCH ×2 (09:24→21:54)
[2018-04-09] MEDS: ASPIRIN 325 MG TABLET, ENT COATED PO SCH (09:24)
[2018-04-09] MEDS: LISINOPRIL 5 MG TABLET PO SCH (09:24)
[2018-04-09] MEDS: CLOPIDOGREL BISULFATE 75 MG TABLET PO SCH (09:24)
[2018-04-09] MEDS: DOCUSATE SODIUM 100 MG CAPSULE PO SCH (09:24)
[2018-04-09] MEDS: ENOXAPARIN SODIUM INJ 40 MG/0.4 ML DISP.SYRIN SUBCUT SCH (09:25)
[2018-04-09] MEDS ORDERED: POTASSIUM CHLORIDE 20 MEQ/15 ML UDCUP PO ONE (09:30)
[2018-04-09] MEDS: MORPHINE SULFATE 10 MG/ML INJ IV PRN (11:48)
[2018-04-09] MEDS: ATORVASTATIN CALCIUM 20 MG TABLET PO SCH (21:54)
[2018-04-10] MEDS: NORMAL SALINE 1000 ML 1,000 ML IV PRN (00:24)
[2018-04-10] MEDS: METRONIDAZOLE 500 MG TABLET PO SCH ×3 (05:02→21:38)
[2018-04-10] MEDS: BUPROPION HCL 100 MG TABLET PO SCH ×3 (05:03→21:38)
[2018-04-10 05:25] LABS: ABSOLUTE EOSINOPHILS # (AUTO) 0.1 10^3/uL (0.0-0.6); ABSOLUTE LYMPHOCYTES (AUTO) 1.6 10^3/uL (0.5-4.7); ABSOLUTE MONOCYTES (AUTO) 0.7 10^3/uL (0.1-1.4); ABSOLUTE NEUT (AUTO) 4.1 10^3/uL (1.7-8.2); BASOPHILS % (AUTO) 0.3 % (0-2); HEMATOCRIT 43.2 % (37.9-51.0); HEMOGLOBIN 15.1 g/dL (13.5-17.0); LYMPHOCYTES % (AUTO) 24.8 % (13-45); MEAN CORPUSCULAR HGB CONC 34.9 g/dL (32.0-36.0); MEAN CORPUSCULAR VOLUME 86 fl (80-97); MONOCYTES % (AUTO) 10.7 % (3-13); PLATELET COUNT 183 10^3/uL (150-450); RED BLOOD COUNT 5.02 10^6/uL (4.35-5.55); RED CELL DISTRIBUTION WIDTH 14.7 % (11.5-14.0); SEGMENTED NEUTROPHILS % (AUTO) 63.2 % (42-78); TOTAL CELLS COUNTED % (AUTO) 100 %; WHITE BLOOD COUNT 6.5 10^3/uL (4.0-10.5)
[2018-04-10 05:40] LABS: ALANINE AMINOTRANSFERASE 23 U/L (21-72); ALBUMIN 3.2 g/dL (3.5-5.0); ALKALINE PHOSPHATASE 58 U/L (38-126); ANION GAP 9 (5-19); ASPARTATE AMINO TRANSFERASE 15 U/L (17-59); BILIRUBIN,DIRECT 0.2 mg/dL (0.0-0.4); BILIRUBIN,TOTAL 0.7 mg/dL (0.2-1.3); BLOOD UREA NITROGEN 10 mg/dL (7-20); CALCIUM 8.6 mg/dL (8.4-10.2); CARBON DIOXIDE 28 mmol/L (22-30); CHLORIDE 105 mmol/L (98-107); GLUCOSE 98 mg/dL (75-110); POTASSIUM 3.2 mmol/L (3.6-5.0); SODIUM 141.7 mmol/L (137-145); TOTAL PROTEIN 5.5 g/dL (6.3-8.2)
[2018-04-10] MEDS: INSULIN LISPRO 100 UNIT/ML 3 ML VIAL SUBCUT SCH ×4 (08:21→21:37)
[2018-04-10] MEDS ORDERED: SUCRALFATE SUSP 1 GM/10 ML UDCUP PO ONE (10:00)
[2018-04-10] MEDS: INSULIN GLARGINE,HUM.REC.ANLOG 1,000 UNIT/10 ML UNIT SUBCUT SCH (10:05)
[2018-04-10] MEDS: SERTRALINE HCL 50 MG TABLET PO SCH (10:06)
[2018-04-10] MEDS: CLOPIDOGREL BISULFATE 75 MG TABLET PO SCH (10:06)
[2018-04-10] MEDS: METOPROLOL TARTRATE 25 MG TABLET PO SCH ×2 (10:06→21:38)
[2018-04-10] MEDS: FAMOTIDINE 20 MG TABLET PO SCH (10:06)
[2018-04-10] MEDS: ASPIRIN 325 MG TABLET, ENT COATED PO SCH (10:06)
[2018-04-10] MEDS: ENOXAPARIN SODIUM INJ 40 MG/0.4 ML DISP.SYRIN SUBCUT SCH (10:07)
[2018-04-10] MEDS: LISINOPRIL 5 MG TABLET PO SCH (10:07)
[2018-04-10] MEDS ORDERED: POTASSIUM CHLORIDE 10 MEQ CAPSULE.ER PO ONE (12:57)
--- NOTE | 2018-04-10 13:00 | PDOC PROGRESS REPORT ---
Subjective Progress Note for:: 04/10/18 Subjective:: RHONDA WRIGHT is a 67 year old male past medical history of diabetes type 2, CAD status post PCI stent x1, CABG, hyperlipidemia, KARI, depression, anxiety, diabetic gastroparesis, who presented to ED complaining of worsening nausea associated with nonbloody, bilious vomiting and abdominal pain. Patient is insulin-dependent however he had a recent travel to [place] 9 days ago and forgot to take his insulin supplies. While at [place] last Thursday he also had some EtOH. Denies any history of alcohol abuse. Nausea and vomiting associated with epigastric abdominal pain, 6/10, constant, sharp, worse with movement, nonradiating, and nonbloody diarrhea and shortness of breath. Also endorsing polydipsia, polyuria. Denies any fever, chest pain. In ED he was found to have white blood cells 20,000, anion gap 35, BGL 500, lipase 6585 and creatinine 2.02. Abdominal CT was negative for any acute abnormalities except for gastric distention. Hospitalist was consulted for admission. 04/07/2018. No acute events overnight. Nausea vomiting resolved. Persistent abdominal pain however improved compared to yesterday. No bowel movement, has not been able to eat due to low appetite. Complaining of headache. Denies any fever, chills, chest pain or any urinary symptoms. 04/08/2018. No acute events overnight. Patient still complaining of persistent epigastric abdominal pain 3/5, nonradiating, sharp, worsened with movement, is passing flatus, has not had a bowel movement, denies any fever, chills, nausea, vomiting, diarrhea or any urinary symptoms. He has an appetite but not has been able to tolerate p.o. intake. 04/09/2018. No acute events overnight. Patient still complaining of persistent epigastric abdominal pain but much better than yesterday. Nonradiating, sharp worse with movement. Passing flatus has not had a bowel movement. Patient tried to eat but could not tolerate p.o. intake. He denies any fever, chills nausea, vomiting, diarrhea or any urinary symptoms. 04/10/2018. No acute events overnight. Patient has been able to tolerate clear liquid, abdominal pain has subsided significantly, has had bowel movements, d enies any fever, chills, nausea, vomiting, diarrhea, constipation or any urinary symptoms. Complaining of persistent heartburn. Has had an upper GI endoscopy 7 years ago which was negative. Patient has been taking ibuprofen for neck pain chronically. Reason For Visit: DKA,PANCREATITIS Physical Exam Vital Signs: Temp Pulse Resp BP Pulse Ox 98.5 F 90 18 146/86 H 98 04/10/18 11:24 04/10/18 11:24 04/10/18 11:24 04/10/18 11:24 04/10/18 11:24 Intake & Output 04/09/18 04/10/18 04/11/18 06:59 06:59 06:59 Intake Total 2414 4660 Output Total 3150 3600 Balance -736 1060 Weight 96.8 kg 97.7 kg General appearance: PRESENT: no acute distress, well-developed, well-nourished Head exam: PRESENT: atraumatic, normocephalic Neck exam: ABSENT: carotid bruit, JVD, lymphadenopathy, thyromegaly Respiratory exam: PRESENT: clear to auscultation chris. ABSENT: rales, rhonchi, wheezes Cardiovascular exam: PRESENT: RRR. ABSENT: diastolic murmur, rubs, systolic murmur GI/Abdominal exam: PRESENT: normal bowel sounds, soft, tenderness. ABSENT: distended, guarding, mass, organolmegaly, rebound Extremities exam: PRESENT: full ROM. ABSENT: calf tenderness, clubbing, pedal edema Neurological exam: PRESENT: alert, awake, oriented to person, oriented to place, oriented to time, oriented to situation, CN II-XII grossly intact. ABSENT: motor sensory deficit Results Laboratory Results: 04/10/18 04:33 04/10/18 04:33 04/10/18 04/10/18 04:33 04:33 WBC 6.5 RBC 5.02 Hgb 15.1 Hct 43.2 MCV 86 MCH 30.0 MCHC 34.9 RDW 14.7 H Plt Count 183 Seg Neutrophils % 63.2 Lymphocytes % 24.8 Monocytes % 10.7 Eosinophils % 1.0 Basophils % 0.3 Absolute Neutrophils 4.1 Absolute Lymphocytes 1.6 Absolute Monocytes 0.7 Absolute Eosinophils 0.1 Absolute Basophils 0.0 Sodium 141.7 Potassium 3.2 L Chloride 105 Carbon Dioxide 28 Anion Gap 9 BUN 10 Creatinine 0.47 L Est GFR ( Amer) > 60 Est GFR (Non-Af Amer) > 60 Glucose 98 Calcium 8.6 Magnesium 2.0 Total Bilirubin 0.7 AST 15 L ALT 23 Alkaline Phosphatase 58 Total Protein 5.5 L Albumin 3.2 L 04/06/18 04/06/18 10:10 10:10 Creatine Kinase 299 H CK-MB (CK-2) 4.02 Troponin I 0.022 Impressions: Abdomen/Pelvis CT 04/06/18 10:25 IMPRESSION: DISTENDED STOMACH WHICH MAY BE DUE TO GASTROPARESIS VERSUS GASTRIC OUTLET OBSTRUCTION. NO OTHER SIGNIFICANT FINDING IN THE ABDOMEN OR PELVIS. Renal Ultrasound 04/08/18 00:00 IMPRESSION: NORMAL RENAL AND BLADDER ULTRASOUND. Assessment & Plan - Diagnosis (1) Pancreatitis, acute Qualifiers: Pancreatitis type: unspecified pancreatitis type Acute pancreatitis complication: no infection or necrosis Qualified Code(s): K85.90 - Acute pancreatitis without necrosis or infection, unspecified Is this a current diagnosis for this admission?: Yes Plan: Most likely EtOH induced. Triglyceride 258. Denies any abdominal trauma. Significant improvement. Able to tolerate clear liquid. Having normal bowel movement. CBC within normal limits. Blood cultures negative. Continue IV fluids, monitor volume status. Taper opiate analgesics if possible. Advance diet as tolerated. Monitor electrolytes, monitor for signs of infection. (2) Nausea & vomiting Is this a current diagnosis for this admission?: Yes Plan: Improved. Has not had any vomiting in the last 24 hours. Due to problem #1. Continue supportive measures. (3) SARAH (acute kidney injury) Is this a current diagnosis for this admission?: Yes Plan: Resolved. Creatinine within normal limits. Likely prerenal due to intravascular volume depletion caused by DKA/nausea vomiting. FeNa 1.99%. Pending Renal US. (4) Gastroparesis Is this a current diagnosis for this admission?: No Plan: Chronic. Secondary to diabetes. Restart metronidazole. Outpatient GI follow- up. (5) Migraine Is this a current diagnosis for this admission?: No Plan: Start home meds. (6) Depression Qualifiers: Is this a current diagnosis for this admission?: No Plan: Denies any suicidal or homicidal ideation. Restart home meds. Outpatient PCP follow-up. (7) Diabetes mellitus type 2 in obese Is this a current diagnosis for this admission?: No Plan: Controlled. Continue diabetic diet, long-acting insulin, pre-meal insulin, sliding scale insulin, diabetic education. A1c. (8) HLD (hyperlipidemia) Qualifiers: Is this a current diagnosis for this admission?: No Plan: Restart home meds. Diet and lifestyle modification. (9) HTN (hypertension) Qualifiers: Is this a current diagnosis for this admission?: No Plan: Not optimized. Continue beta-blockers. Started on low-dose [place]. Adjust dose as needed. Outpatient PCP follow-up. (10) Hx of CABG Is this a current diagnosis for this admission?: No Plan: Continue statins, DAPT, beta-blockers, [place]. (11) DKA (diabetic ketoacidoses) Qualifiers: Diabetes mellitus type: type 2 Diabetes mellitus complication detail: without coma Qualified Code(s): E11.10 - Type 2 diabetes mellitus with ketoacidosis without coma Is this a current diagnosis for this admission?: Yes Plan: Resolved. Anion gap within normal limits. Patient was transitioned to subcutaneous insulin. Due to noncompliance. Insulin drip to be transitioned to subcutaneous insulin. BMP every 4 hours for electrolyte monitoring. (12) Hypoglycemia Is this a current diagnosis for this admission?: Yes Plan: Resolved. Patient was p.o. intolerant and received his regular insulin dosage which may have caused his hypoglycemia. Hypoglycemic protocol. Hold Lantus dosage today restart once p.o. tolerant. (13) Hypokalemia Is this a current diagnosis for this admission?: Yes Plan: Replaced. BMP tomorrow. (14) Gastritis Is this a current diagnosis for this admission?: No Plan: Chronic. Patient has had an upper GI endoscopy 7 years ago and he reports it was normal. H&H within normal limits. Denies any melanotic stool. We will start on high-dose PPI, sucralfate, will check for H. pylori. Patient was strongly encouraged to be evaluated by GI as outpatient for another endoscopy. She is also taking ibuprofen high dose for his chronic neck pain. Strongly advised to avoid NSAIDs if possible.
[2018-04-10] MEDS: MAG HYDROX/AL HYDROX/SIMETH SUSP 30 ML UDCUP PO PRN ×3 (14:48→21:42)
[2018-04-10] MEDS: LANSOPRAZOLE 30 MG TAB.RAP.DR PO SCH (17:54)
[2018-04-10 20:38] LABS: APPEARANCE,URINE CLEAR; BILIRUBIN,URINE NEGATIVE (NEGATIVE); COLOR,URINE YELLOW; GLUCOSE, URINE >=500 mg/dL (NEGATIVE); KETONES,URINE 20 mg/dL (NEGATIVE); LEUKOCYTE ESTERASE,URINE NEGATIVE (NEGATIVE); NITRITE,URINE NEGATIVE (NEGATIVE); PROTEIN,URINE NEGATIVE (NEGATIVE); URINE SPECIFIC GRAVITY 1.024
[2018-04-10] MEDS: ATORVASTATIN CALCIUM 20 MG TABLET PO SCH (21:38)
[2018-04-11] MEDS: LANSOPRAZOLE 30 MG TAB.RAP.DR PO SCH ×2 (06:26→16:41)
[2018-04-11] MEDS: BUPROPION HCL 100 MG TABLET PO SCH ×3 (06:27→22:04)
[2018-04-11] MEDS: METRONIDAZOLE 500 MG TABLET PO SCH ×3 (06:27→22:04)
[2018-04-11] MEDS: INSULIN LISPRO 100 UNIT/ML 3 ML VIAL SUBCUT SCH ×4 (09:11→22:07)
[2018-04-11] MEDS: LISINOPRIL 5 MG TABLET PO SCH (09:11)
[2018-04-11] MEDS: SERTRALINE HCL 50 MG TABLET PO SCH (09:11)
[2018-04-11] MEDS: METOPROLOL TARTRATE 25 MG TABLET PO SCH ×2 (09:11→22:04)
[2018-04-11] MEDS: CLOPIDOGREL BISULFATE 75 MG TABLET PO SCH (09:11)
[2018-04-11] MEDS: ENOXAPARIN SODIUM INJ 40 MG/0.4 ML DISP.SYRIN SUBCUT SCH (09:12)
[2018-04-11] MEDS: MAG HYDROX/AL HYDROX/SIMETH SUSP 30 ML UDCUP PO PRN ×5 (09:12→22:03)
--- NOTE | 2018-04-11 09:59 | PDOC PROGRESS REPORT ---
Subjective Progress Note for:: 04/11/18 Subjective:: RHONDA WRIGHT is a 67 year old male past medical history of diabetes type 2, CAD status post PCI stent x1, CABG, hyperlipidemia, KARI, depression, anxiety, diabetic gastroparesis, who presented to ED complaining of worsening nausea associated with nonbloody, bilious vomiting and abdominal pain. Patient is insulin-dependent however he had a recent travel to [place] 9 days ago and forgot to take his insulin supplies. While at [place] last Thursday he also had some EtOH. Denies any history of alcohol abuse. Nausea and vomiting associated with epigastric abdominal pain, 6/10, constant, sharp, worse with movement, nonradiating, and nonbloody diarrhea and shortness of breath. Also endorsing polydipsia, polyuria. Denies any fever, chest pain. In ED he was found to have white blood cells 20,000, anion gap 35, BGL 500, lipase 6585 and creatinine 2.02. Abdominal CT was negative for any acute abnormalities except for gastric distention. Hospitalist was consulted for admission. 04/07/2018. No acute events overnight. Nausea vomiting resolved. Persistent abdominal pain however improved compared to yesterday. No bowel movement, has not been able to eat due to low appetite. Complaining of headache. Denies any fever, chills, chest pain or any urinary symptoms. 04/08/2018. No acute events overnight. Patient still complaining of persistent epigastric abdominal pain 3/5, nonradiating, sharp, worsened with movement, is passing flatus, has not had a bowel movement, denies any fever, chills, nausea, vomiting, diarrhea or any urinary symptoms. He has an appetite but not has been able to tolerate p.o. intake. 04/09/2018. No acute events overnight. Patient still complaining of persistent epigastric abdominal pain but much better than yesterday. Nonradiating, sharp worse with movement. Passing flatus has not had a bowel movement. Patient tried to eat but could not tolerate p.o. intake. He denies any fever, chills nausea, vomiting, diarrhea or any urinary symptoms. 04/10/2018. No acute events overnight. Patient has been able to tolerate clear liquid, abdominal pain has subsided significantly, has had bowel movements, d enies any fever, chills, nausea, vomiting, diarrhea, constipation or any urinary symptoms. Complaining of persistent heartburn. Has had an upper GI endoscopy 7 years ago which was negative. Patient has been taking ibuprofen for neck pain chronically. 04/11/2018. No acute events overnight. Patient has been refusing his p.o. intake is stating severe odynophagia. The only thing he can tolerate his ice chips. Stating even water makes it hurt. His abdominal pain has improved, passing flatus, had 2 bowel movement since yesterday, denies any fever, chills, nausea, vomiting, diarrhea, constipation or any urinary symptoms. Reason For Visit: DKA,PANCREATITIS Physical Exam Vital Signs: Temp Pulse Resp BP Pulse Ox 97.5 F 79 18 129/72 H 98 04/11/18 04:11 04/11/18 07:00 04/11/18 04:11 04/11/18 04:11 04/11/18 04:11 Intake & Output 04/10/18 04/11/18 04/12/18 06:59 06:59 06:59 Intake Total 4660 1086 Output Total 3600 1150 Balance 1060 -64 Weight 97.7 kg 97 kg General appearance: PRESENT: no acute distress, well-developed, well-nourished Head exam: PRESENT: atraumatic, normocephalic Respiratory exam: PRESENT: clear to auscultation chris. ABSENT: rales, rhonchi, wheezes Pulses: PRESENT: normal dorsalis pedis pul GI/Abdominal exam: PRESENT: normal bowel sounds, soft. ABSENT: distended, guarding, mass, organolmegaly, rebound, tenderness Extremities exam: PRESENT: full ROM. ABSENT: calf tenderness, clubbing, pedal edema Neurological exam: PRESENT: alert, awake, oriented to person, oriented to place, oriented to time, oriented to situation, CN II-XII grossly intact. ABSENT: motor sensory deficit Results Laboratory Results: 04/10/18 04:33 04/10/18 04:33 04/10/18 20:00 Urine Color YELLOW Urine Appearance CLEAR Urine pH 7.0 Ur Specific Pool 1.024 Urine Protein NEGATIVE Urine Glucose (UA) >=500 H Urine Ketones 20 H Urine Blood NEGATIVE Urine Nitrite NEGATIVE Ur Leukocyte Esterase NEGATIVE Urine WBC (Auto) 1 Urine RBC (Auto) 0 04/06/18 04/06/18 10:10 10:10 Creatine Kinase 299 H CK-MB (CK-2) 4.02 Troponin I 0.022 Impressions: Abdomen/Pelvis CT 04/06/18 10:25 IMPRESSION: DISTENDED STOMACH WHICH MAY BE DUE TO GASTROPARESIS VERSUS GASTRIC OUTLET OBSTRUCTION. NO OTHER SIGNIFICANT FINDING IN THE ABDOMEN OR PELVIS. Renal Ultrasound 04/08/18 00:00 IMPRESSION: NORMAL RENAL AND BLADDER ULTRASOUND. Assessment & Plan - Diagnosis (1) Odynophagia Is this a current diagnosis for this admission?: Yes Plan: Endorsing history of chronic gastritis has not been able to take any p.o. intake due to severe odynophagia. The only thing he is tolerating his ice chips. He has had an upper GI endoscopy 7 years ago and states it was normal. Does have history of gastroparesis and possibly duodenal stricture based on CT abdomen finding. Unfortunately no GI consult available in the weekend. Consult GI tomorrow. Meanwhile we will continue high-dose PPIs, Maalox, sucralfate, and IV fluids. She is also taking ibuprofen high dose for his chronic neck pain. Strongly advised to avoid NSAIDs if possible. Denies any recent weight loss, hematemesis, hematochezia, melena, hemoglobin within normal limits. (2) Gastritis Is this a current diagnosis for this admission?: No Plan: As per problem #1. (3) Diabetes mellitus type 2 in obese Is this a current diagnosis for this admission?: No Plan: Not controlled. A1c 11.5 admission. However he has been normoglycemic/hypoglycemic on this admission due to the fact that he has been p. o. intolerant to underlying pancreatitis and odynophagia. Hold long-acting insulin until patient is p.o. tolerant. Continue Accu-Chek, sliding scale, diabetic diet. (4) Gastroparesis Is this a current diagnosis for this admission?: No Plan: Chronic. Secondary to diabetes. Restart metronidazole. Outpatient GI follow- up. (5) Pancreatitis, acute Qualifiers: Pancreatitis type: unspecified pancreatitis type Acute pancreatitis complication: no infection or necrosis Qualified Code(s): K85.90 - Acute pancreatitis without necrosis or infection, unspecified Is this a current diagnosis for this admission?: Yes Plan: Most likely EtOH induced. Triglyceride 258. Denies any abdominal trauma. Significant improvement. P.o. tolerant due to severe odynophagia. Only tolerat e ice chips. Having normal bowel movement. CBC within normal limits. Blood cultures negative. Continue IV fluids, monitor volume status. Taper opiate analgesics if possible. Advance diet as tolerated. (6) Nausea & vomiting Is this a current diagnosis for this admission?: Yes Plan: Resolved. (7) SARAH (acute kidney injury) Is this a current diagnosis for this admission?: Yes Plan: Resolved. Creatinine within normal limits. Likely prerenal due to intravascular volume depletion caused by DKA/nausea vomiting. FeNa 1.99%. Pending Renal US. (8) Migraine Is this a current diagnosis for this admission?: No Plan: Start home meds. (9) Depression Qualifiers: Is this a current diagnosis for this admission?: No Plan: Denies any suicidal or homicidal ideation. Restart home meds. Outpatient PCP follow-up. (10) HLD (hyperlipidemia) Qualifiers: Is this a current diagnosis for this admission?: No Plan: Restart home meds. Diet and lifestyle modification. (11) HTN (hypertension) Qualifiers: Is this a current diagnosis for this admission?: No Plan: Not optimized. Continue beta-blockers. Started on low-dose [place]. Adjust dose as needed. Outpatient PCP follow-up. (12) Hx of CABG Is this a current diagnosis for this admission?: No Plan: Continue statins, DAPT, beta-blockers, SANFORD. (13) DKA (diabetic ketoacidoses) Qualifiers: Diabetes mellitus type: type 2 Diabetes mellitus complication detail: without coma Qualified Code(s): E11.10 - Type 2 diabetes mellitus with ketoacidosis without coma Is this a current diagnosis for this admission?: Yes Plan: Resolved. Anion gap within normal limits. Patient was transitioned to subcutaneous insulin. Due to noncompliance. Insulin drip to be transitioned to subcutaneous insulin. BMP every 4 hours for electrolyte monitoring. (14) Hypoglycemia Is this a current diagnosis for this admission?: Yes Plan: Resolved. Patient was p.o. intolerant and received his regular insulin dosage which may have caused his hypoglycemia. Hypoglycemic protocol. Hold Lantus dosage today restart once p.o. tolerant. (15) Hypokalemia Is this a current diagnosis for this admission?: Yes Plan: Resolved.
[2018-04-11] MEDS ORDERED: ASPIRIN 325 MG TABLET, ENT COATED PO SCH (10:00)
[2018-04-11] MEDS: ASPIRIN 81 MG TABLET, ENT COATED PO SCH (10:38)
[2018-04-11] MEDS: NORMAL SALINE 1000 ML 1,000 ML IV PRN (19:44)
[2018-04-11] MEDS: ATORVASTATIN CALCIUM 20 MG TABLET PO SCH (22:04)
[2018-04-12] MEDS: NORMAL SALINE 1000 ML 1,000 ML IV PRN ×2 (04:10→22:32)
[2018-04-12 06:05] LABS: ABSOLUTE EOSINOPHILS # (AUTO) 0.1 10^3/uL (0.0-0.6); ABSOLUTE LYMPHOCYTES (AUTO) 1.9 10^3/uL (0.5-4.7); ABSOLUTE MONOCYTES (AUTO) 0.8 10^3/uL (0.1-1.4); ABSOLUTE NEUT (AUTO) 4.4 10^3/uL (1.7-8.2); BASOPHILS % (AUTO) 0.3 % (0-2); EOSINOPHILS % (AUTO) 1.7 % (0-6); HEMATOCRIT 41.4 % (37.9-51.0); HEMOGLOBIN 14.2 g/dL (13.5-17.0); LYMPHOCYTES % (AUTO) 25.5 % (13-45); MEAN CORPUSCULAR HEMOGLOBIN 29.6 pg (27.0-33.4); MEAN CORPUSCULAR HGB CONC 34.2 g/dL (32.0-36.0); MEAN CORPUSCULAR VOLUME 87 fl (80-97); MONOCYTES % (AUTO) 11.5 % (3-13); PLATELET COUNT 242 10^3/uL (150-450); RED BLOOD COUNT 4.79 10^6/uL (4.35-5.55); RED CELL DISTRIBUTION WIDTH 14.5 % (11.5-14.0); TOTAL CELLS COUNTED % (AUTO) 100 %; WHITE BLOOD COUNT 7.3 10^3/uL (4.0-10.5)
[2018-04-12 06:21] LABS: ALANINE AMINOTRANSFERASE 29 U/L (21-72); ALKALINE PHOSPHATASE 58 U/L (38-126); ANION GAP 9 (5-19); ASPARTATE AMINO TRANSFERASE 14 U/L (17-59); BILIRUBIN,DIRECT 0.1 mg/dL (0.0-0.4); BILIRUBIN,TOTAL 0.4 mg/dL (0.2-1.3); BLOOD UREA NITROGEN 15 mg/dL (7-20); CALCIUM 8.6 mg/dL (8.4-10.2); CARBON DIOXIDE 24 mmol/L (22-30); CHLORIDE 105 mmol/L (98-107); GLUCOSE 240 mg/dL (75-110); POTASSIUM 4.4 mmol/L (3.6-5.0); SODIUM 137.7 mmol/L (137-145); TOTAL PROTEIN 5.3 g/dL (6.3-8.2)
[2018-04-12] MEDS: BUPROPION HCL 100 MG TABLET PO SCH ×3 (06:36→22:38)
[2018-04-12] MEDS: METRONIDAZOLE 500 MG TABLET PO SCH ×3 (06:36→22:38)
[2018-04-12] MEDS: LANSOPRAZOLE 30 MG TAB.RAP.DR PO SCH ×2 (06:36→19:25)
[2018-04-12] MEDS: MAG HYDROX/AL HYDROX/SIMETH SUSP 30 ML UDCUP PO PRN ×5 (06:40→22:37)
[2018-04-12] MEDS: INSULIN LISPRO 100 UNIT/ML 3 ML VIAL SUBCUT SCH ×4 (09:25→22:37)
[2018-04-12] MEDS: ENOXAPARIN SODIUM INJ 40 MG/0.4 ML DISP.SYRIN SUBCUT SCH (09:25)
[2018-04-12] MEDS: CLOPIDOGREL BISULFATE 75 MG TABLET PO SCH (09:26)
[2018-04-12] MEDS: METOPROLOL TARTRATE 25 MG TABLET PO SCH ×2 (09:26→22:37)
[2018-04-12] MEDS: SERTRALINE HCL 50 MG TABLET PO SCH (09:26)
[2018-04-12] MEDS: ASPIRIN 81 MG TABLET, ENT COATED PO SCH (09:26)
[2018-04-12] MEDS: LISINOPRIL 5 MG TABLET PO SCH (09:26)
--- NOTE | 2018-04-12 10:35 | PDOC PROGRESS REPORT ---
Subjective Progress Note for:: 04/12/18 Subjective:: RHONDA WRIGHT is a 67 year old male past medical history of diabetes type 2, CAD status post PCI stent x1, CABG, hyperlipidemia, KARI, depression, anxiety, diabetic gastroparesis, who presented to ED complaining of worsening nausea associated with nonbloody, bilious vomiting and abdominal pain. Patient is insulin-dependent however he had a recent travel to [place] 9 days ago and forgot to take his insulin supplies. While at [place] last Thursday he also had some EtOH. Denies any history of alcohol abuse. Nausea and vomiting associated with epigastric abdominal pain, 6/10, constant, sharp, worse with movement, nonradiating, and nonbloody diarrhea and shortness of breath. Also endorsing polydipsia, polyuria. Denies any fever, chest pain. In ED he was found to have white blood cells 20,000, anion gap 35, BGL 500, lipase 6585 and creatinine 2.02. Abdominal CT was negative for any acute abnormalities except for gastric distention. Hospitalist was consulted for admission. 04/07/2018. No acute events overnight. Nausea vomiting resolved. Persistent abdominal pain however improved compared to yesterday. No bowel movement, has not been able to eat due to low appetite. Complaining of headache. Denies any fever, chills, chest pain or any urinary symptoms. 04/08/2018. No acute events overnight. Patient still complaining of persistent epigastric abdominal pain 3/5, nonradiating, sharp, worsened with movement, is passing flatus, has not had a bowel movement, denies any fever, chills, nausea, vomiting, diarrhea or any urinary symptoms. He has an appetite but not has been able to tolerate p.o. intake. 04/09/2018. No acute events overnight. Patient still complaining of persistent epigastric abdominal pain but much better than yesterday. Nonradiating, sharp worse with movement. Passing flatus has not had a bowel movement. Patient tried to eat but could not tolerate p.o. intake. He denies any fever, chills nausea, vomiting, diarrhea or any urinary symptoms. 04/10/2018. No acute events overnight. Patient has been able to tolerate clear liquid, abdominal pain has subsided significantly, has had bowel movements, d enies any fever, chills, nausea, vomiting, diarrhea, constipation or any urinary symptoms. Complaining of persistent heartburn. Has had an upper GI endoscopy 7 years ago which was negative. Patient has been taking ibuprofen for neck pain chronically. 04/11/2018. No acute events overnight. Patient has been refusing his p.o. intake is stating severe odynophagia. The only thing he can tolerate his ice chips. Stating even water makes it hurt. His abdominal pain has improved, passing flatus, had 2 bowel movement since yesterday, denies any fever, chills, nausea, vomiting, diarrhea, constipation or any urinary symptoms. 04/12/2018. No acute events overnight. Patient still complaining of not being able to eat due to his severe odynophagia. He is stating the only thing he can tolerate is ice chips. Abdominal pain has improved and he is having normal bowel and bladder function. Patient is pending for GI evaluation. Denies any fever, nausea, vomiting, diarrhea, constipation or any urinary symptoms. Reason For Visit: DKA,PANCREATITIS Physical Exam Vital Signs: Temp Pulse Resp BP Pulse Ox 98.2 F 74 20 127/69 H 95 04/12/18 04:08 04/12/18 04:08 04/12/18 04:08 04/12/18 04:08 04/12/18 04:08 Intake & Output 04/11/18 04/12/18 04/13/18 06:59 06:59 06:59 Intake Total 1086 2907 Output Total 1150 1400 Balance -64 1507 Weight 97 kg 99 kg General appearance: PRESENT: no acute distress, well-developed, well-nourished Head exam: PRESENT: atraumatic, normocephalic Respiratory exam: PRESENT: clear to auscultation chris. ABSENT: rales, rhonchi, wheezes Cardiovascular exam: PRESENT: RRR. ABSENT: diastolic murmur, rubs, systolic murmur GI/Abdominal exam: PRESENT: normal bowel sounds, soft. ABSENT: distended, guarding, mass, organolmegaly, rebound, tenderness Extremities exam: PRESENT: full ROM. ABSENT: calf tenderness, clubbing, pedal edema Neurological exam: PRESENT: alert, awake, oriented to person, oriented to place, oriented to time, oriented to situation, CN II-XII grossly intact. ABSENT: motor sensory deficit Results Laboratory Results: 04/12/18 05:05 02/25/19 05:05 04/12/18 04/12/18 05:05 05:05 WBC 7.3 RBC 4.79 Hgb 14.2 Hct 41.4 MCV 87 MCH 29.6 MCHC 34.2 RDW 14.5 H Plt Count 242 Seg Neutrophils % 61.0 Lymphocytes % 25.5 Monocytes % 11.5 Eosinophils % 1.7 Basophils % 0.3 Absolute Neutrophils 4.4 Absolute Lymphocytes 1.9 Absolute Monocytes 0.8 Absolute Eosinophils 0.1 Absolute Basophils 0.0 Sodium 137.7 Potassium 4.4 Chloride 105 Carbon Dioxide 24 Anion Gap 9 BUN 15 Creatinine 0.52 Est GFR ( Amer) > 60 Est GFR (Non-Af Amer) > 60 Glucose 240 H Calcium 8.6 Total Bilirubin 0.4 AST 14 L ALT 29 Alkaline Phosphatase 58 Total Protein 5.3 L Albumin 3.0 L 04/06/18 16:20 Blood Blood Culture - Final NO GROWTH IN 5 DAYS 04/06/18 15:31 Blood Blood Culture - Final NO GROWTH IN 5 DAYS 04/06/18 04/06/18 10:10 10:10 Creatine Kinase 299 H CK-MB (CK-2) 4.02 Troponin I 0.022 Impressions: Abdomen/Pelvis CT 04/06/18 10:25 IMPRESSION: DISTENDED STOMACH WHICH MAY BE DUE TO GASTROPARESIS VERSUS GASTRIC OUTLET OBSTRUCTION. NO OTHER SIGNIFICANT FINDING IN THE ABDOMEN OR PELVIS. Renal Ultrasound 04/08/18 00:00 IMPRESSION: NORMAL RENAL AND BLADDER ULTRASOUND. Assessment & Plan - Diagnosis (1) Odynophagia Is this a current diagnosis for this admission?: Yes Plan: Endorsing history of chronic gastritis has not been able to take any p.o. intake due to severe odynophagia. The only thing he is tolerating his ice chips. He has had an upper GI endoscopy 7 years ago and states it was normal. Does have history of gastroparesis and possibly duodenal stricture based on CT a bdomen finding. GI has been consulted. Pending recommendations. Meanwhile we will continue high-dose PPIs, Maalox, sucralfate, and IV fluids. He is also taking ibuprofen high dose for his chronic neck pain. Strongly advised to avoid NSAIDs if possible. Denies any recent weight loss, hematemesis, hematochezia, melena, hemoglobin within normal limits. (2) Gastritis Is this a current diagnosis for this admission?: No Plan: As per problem #1. (3) Diabetes mellitus type 2 in obese Is this a current diagnosis for this admission?: No Plan: Not controlled. A1c 11.5 admission. However he has been normoglycemic/hypoglycemic on this admission due to the fact that he has been p.o. intolerant to underlying pancreatitis and odynophagia. Hold long-acting insulin until patient is p.o. tolerant. Continue Accu-Chek, sliding scale, diabetic diet. (4) Gastroparesis Is this a current diagnosis for this admission?: No Plan: Chronic. Secondary to diabetes. Restart metronidazole. Outpatient GI follow- up. (5) Pancreatitis, acute Qualifiers: Pancreatitis type: unspecified pancreatitis type Acute pancreatitis complication: no infection or necrosis Qualified Code(s): K85.90 - Acute pancreatitis without necrosis or infection, unspecified Is this a current diagnosis for this admission?: Yes Plan: Most likely EtOH induced. Triglyceride 258. Denies any abdominal trauma. Significant improvement. P.o. tolerant due to severe odynophagia. Only tolerate ice chips. Having normal bowel movement. CBC within normal limits. Blood cultures negative. Continue IV fluids, monitor volume status. Taper opiate analgesics if possible. Advance diet as tolerated. (6) Nausea & vomiting Is this a current diagnosis for this admission?: Yes Plan: Resolved. (7) SARAH (acute kidney injury) Is this a current diagnosis for this admission?: Yes Plan: Resolved. Creatinine within normal limits. Likely prerenal due to intravascular volume depletion caused by DKA/nausea vomiting. FeNa 1.99%. Pending Renal US. (8) Migraine Is this a current diagnosis for this admission?: No Plan: Start home meds. (9) Depression Qualifiers: Is this a current diagnosis for this admission?: No Plan: Denies any suicidal or homicidal ideation. Restart home meds. Outpatient PCP follow-up. (10) HLD (hyperlipidemia) Qualifiers: Is this a current diagnosis for this admission?: No Plan: Restart home meds. Diet and lifestyle modification. (11) HTN (hypertension) Qualifiers: Is this a current diagnosis for this admission?: No Plan: Not optimized. Continue beta-blockers. Started on low-dose [place]. Adjust dose as needed. Outpatient PCP follow-up. (12) Hx of CABG Is this a current diagnosis for this admission?: No Plan: Continue statins, DAPT, beta-blockers, [place]. (13) DKA (diabetic ketoacidoses) Qualifiers: Diabetes mellitus type: type 2 Diabetes mellitus complication detail: without coma Qualified Code(s): E11.10 - Type 2 diabetes mellitus with ketoacidosis without coma Is this a current diagnosis for this admission?: Yes Plan: Resolved. Anion gap within normal limits. Patient was transitioned to subcutaneous insulin. Due to noncompliance. Insulin drip to be transitioned to subcutaneous insulin. BMP every 4 hours for electrolyte monitoring. (14) Hypoglycemia Is this a current diagnosis for this admission?: Yes Plan: Resolved. Patient was p.o. intolerant and received his regular insulin dosage which may have caused his hypoglycemia. Hypoglycemic protocol. Hold Lantus dosage today restart once p.o. tolerant. (15) Hypokalemia Is this a current diagnosis for this admission?: Yes Plan: Resolved.
[2018-04-12] MEDS: ATORVASTATIN CALCIUM 20 MG TABLET PO SCH (22:37)
[2018-04-13] MEDS: METRONIDAZOLE 500 MG TABLET PO SCH ×3 (05:07→21:47)
[2018-04-13] MEDS: BUPROPION HCL 100 MG TABLET PO SCH ×3 (05:07→21:47)
[2018-04-13] MEDS: MAG HYDROX/AL HYDROX/SIMETH SUSP 30 ML UDCUP PO PRN ×2 (05:07→21:48)
[2018-04-13] MEDS: LANSOPRAZOLE 30 MG TAB.RAP.DR PO SCH (05:07)
[2018-04-13] MEDS: INSULIN LISPRO 100 UNIT/ML 3 ML VIAL SUBCUT SCH ×4 (08:30→21:47)
[2018-04-13] MEDS: NORMAL SALINE 1000 ML 1,000 ML IV PRN (08:33)
[2018-04-13] MEDS: SERTRALINE HCL 50 MG TABLET PO SCH (09:16)
[2018-04-13] MEDS: ASPIRIN 81 MG TABLET, ENT COATED PO SCH (09:16)
[2018-04-13] MEDS: CLOPIDOGREL BISULFATE 75 MG TABLET PO SCH (09:16)
[2018-04-13] MEDS: LISINOPRIL 5 MG TABLET PO SCH (09:17)
[2018-04-13] MEDS: METOPROLOL TARTRATE 25 MG TABLET PO SCH ×2 (09:18→21:46)
[2018-04-13] MEDS: ENOXAPARIN SODIUM INJ 40 MG/0.4 ML DISP.SYRIN SUBCUT SCH (09:19)
[2018-04-13] MEDS ORDERED: FENTANYL CITRATE INJ/PF 100 MCG/2 ML AMPUL ONE (12:02)
[2018-04-13] MEDS ORDERED: DIPHENHYDRAMINE HCL 50 MG/ML VIAL ONE (12:02)
[2018-04-13] MEDS ORDERED: ONDANSETRON HCL INJ/PF 4 MG/2 ML SDV ONE (12:02)
[2018-04-13] MEDS ORDERED: NALOXONE HCL INJ/PF 0.4 MG/1 ML SDV ONE (12:03)
[2018-04-13] MEDS ORDERED: EPINEPHRINE INJ 1 MG/10 ML DISP.SYRIN ONE (12:03)
[2018-04-13] MEDS ORDERED: GLUCAGON,HUMAN RECOMB 1 MG INJ ONE (12:03)
[2018-04-13] MEDS ORDERED: FLUMAZENIL INJ 0.5 MG/5 ML VIAL ONE (12:03)
[2018-04-13] MEDS: MIDAZOLAM 2 MG/2 ML INJ ONE ×2 (12:34→12:39)
--- NOTE | 2018-04-13 13:50 | Operative Report ---
Operative Report DATE OF SURGERY: 04/13/18 Operative Report: The risks benefits and alternatives of the procedure explained to the patient in detail and informed consent is obtained.A GIF Olympus video scope was inserted into the patient's mouth and hypopharynx, the esophagus is identified intubated and insufflated, the scope was then advanced through the esophagus stomach and duodenum, retroflexion maneuver is done, the esophagus stomach and first and second portions of the duodenum examined. PREOPERATIVE DIAGNOSIS: Odynophagia POSTOPERATIVE DIAGNOSIS: Severe erosive esophagitis with ulceration. Nodule noted at the junction of the esophagus and the stomach status post biopsy rule out Porter's esophagus. Gastritis status post biopsy rule out H. pylori OPERATION: EGD with biopsy SURGEON: KAROLINA RAO ANESTHESIA: LMAC TISSUE REMOVED OR ALTERED: As noted above COMPLICATIONS: None. ESTIMATED BLOOD LOSS: None. INTRAOPERATIVE FINDINGS: As noted above. PROCEDURE: Patient tolerated procedure well. No immediate postprocedure complications are noted Patient sent back to his room in good condition. Resume regular diet as tolerated Will need to be started on a PPI Patient could be given Carafate for 1-2 days Wait on biopsies
--- NOTE | 2018-04-13 13:56 | PDOC CONSULTATION ---
Consultation Consult Date: 04/12/18 Attending physician:: KAROLINA RAO Consult reason:: Odynophagia History of Present Illness Admission Date/PCP: 04/06/18 13:24 ANAIS ALLEN NP History of Present Illness: RHONDA WRIGHT is a 67 year old male patient admitted for abdominal pain patient does have DM, however not been able to tolerated oral intake labs have improved patient states that is pain when he eats he does have GERD and some early satiety I will schedule him for possible EGD to rule out for possible PUD there is no melena denies any NSAIDS patient does not have dysphagia Past Medical History Cardiac Medical History: Reports: Coronary Artery Disease, DVT - post knee surgery, Myocardial Infarction - x2 (2005 and 2007), Hypertension Denies: Congestive Heart Failure, Hyperlipidema, Pulmonary Embolism Pulmonary Medical History: Reports: Sleep Apnea - not compliant w/CPAP Denies: Asthma, Bronchitis, Chronic Obstructive Pulmonary Disease (COPD), Pneumonia, Tuberculosis Neurological Medical History: Denies: Seizures Endocrine Medical History: Reports: Diabetes Mellitus Type 1 Denies: Diabetes Mellitus Type 2, Hyperthyroidism, Hypothyroidism Renal/ Medical History: Denies: End Stage Renal Disease GI Medical History: Denies: Cirrhosis, Gastroesophageal Reflux Disease, Hepatitis Musculoskeltal Medical History: Denies: Arthritis Skin Medical History: Denies: Eczema, Psoriasis Psychiatric Medical History: Reports: Depression Denies: Bipolar Disorder Hematology: Denies: Anemia, Bleeding Tendencies Infectious Medical History: Denies: Clostridium Difficile, Methicillin-Resistant Staph Aureus Past Surgical History Past Surgical History: Reports: Cardiac Catheterization, Cholecystectomy, Coronary Artery Bypass Graft - March 2016, [facility] three-vessel, Coronary Stent - August 2016, [facility]; earlier stent also, Orthopedic Surgery - Total knee replacement. Social History Smoking Status: Never Smoker Number of Years Smokin Last Time Smoked: 02/16/1999 Frequency of Alcohol Use: None Hx Recreational Drug Use: No Drugs: None Hx Prescription Drug Abuse: No - Advance Directive Resuscitation Status: Full Code Family History Family History: Reviewed & Not Pertinent Parental Family History Reviewed: Yes Children Family History Reviewed: Unknown Sibling(s) Family History Reviewed.: Unknown Medication/Allergy Home Medications: Aspirin [Ecotrin 325 mg EC Tablet] 325 mg PO DAILY 04/06/18 Bupropion HCl [Wellbutrin Xl 300mg 24hr Tablet] 300 mg PO DAILY 04/06/18 Butalb/Acetaminophen/Caffeine [Fioricet (50-325-40 mg) Tablet] 1 tab PO QIDP PRN 04/06/18 Cetirizine HCl [Zyrtec 10 mg Tablet] 10 mg PO DAILY 04/06/18 Clopidogrel Bisulfate [Plavix 75 mg Tablet] 75 mg PO DAILY 04/06/18 Cyclobenzaprine HCl [Flexeril 10 mg Tablet] 10 mg PO TIDP PRN 04/06/18 Ibuprofen [Motrin 800 mg Tablet] 800 mg PO TIDP PRN 04/06/18 Insulin Glargine,Hum.rec.anlog [Lantus Insulin 100 Unit/1 ml 10 ml] 120 units SQ DAILY 04/06/18 Insulin Lispro [Humalog Kwikpen U-200] 0 units SQ .PERSLIDINGSCALE 04/06/18 Metoprolol Tartrate [Lopressor 25 mg Tablet] 25 mg PO BID 04/06/18 Metronidazole [Flagyl 500 mg Tablet] 500 mg PO TID 04/06/18 Pantoprazole Sodium [Protonix] 40 mg PO DAILY 04/06/18 Pitavastatin Calcium [Livalo] 4 mg PO DAILY 04/06/18 Sertraline HCl [Zoloft] 100 mg PO DAILY 04/06/18 Tramadol HCl [Ultram 50 mg Tablet] 50 mg PO .ATONSETOFHEADACHE PRN MDD MAY REPEAT IN 6 HRS 04/06/18 Allergies/Adverse Reactions: No Known Allergies Allergy (Verified 04/06/18 10:07) Review of Systems Constitutional: ABSENT: fever(s), headache(s), night sweats, weakness Eyes: ABSENT: visual disturbances Ears: ABSENT: hearing changes Nose, Mouth, and Throat: ABSENT: mouth pain, sore throat Cardiovascular: ABSENT: edema, orthropnea, palpitations Respiratory: ABSENT: dyspnea, hemoptysis Gastrointestinal: PRESENT: abdominal pain, heartburn. ABSENT: diarrhea, hematemesis, melena Genitourinary: ABSENT: dysuria, hematuria Musculoskeletal: ABSENT: deformity, joint swelling Integumentary: ABSENT: lesions, pruritus, rash Neurological: ABSENT: syncope, tingling, tremor(s) Endocrine: ABSENT: polydipsia, polyphagia, polyuria Hematologic/Lymphatic: ABSENT: easy bruising Physical Exam Vital Signs: Temp Pulse Resp BP Pulse Ox 98.6 F 76 17 131/69 H 96 04/13/18 12:05 04/13/18 13:10 04/13/18 13:10 04/13/18 13:10 04/13/18 13:10 Intake & Output 04/12/18 04/13/18 04/14/18 06:59 06:59 06:59 Intake Total 2907 2200 150 Output Total 1400 2750 500 Balance 1507 -550 -350 Weight 99 kg 98.7 kg General appearance: PRESENT: no acute distress, well-developed, well-nourished Head exam: PRESENT: atraumatic, normocephalic Eye exam: PRESENT: EOMI, PERRLA. ABSENT: nystagmus, periorbital swelling, scleral icterus Mouth exam: PRESENT: moist, neck supple Throat exam: ABSENT: tonsillar exudate, tonsillogmegaly Neck exam: ABSENT: meningismus, tenderness, thyromegaly Respiratory exam: PRESENT: symmetrical, unlabored. ABSENT: tachypnea, wheezes Cardiovascular exam: PRESENT: RRR, +S1, +S2 GI/Abdominal exam: PRESENT: soft. ABSENT: Caro's sign, rebound, rigid Extremities exam: ABSENT: joint swelling Musculoskeletal exam: PRESENT: full ROM Neurological exam: PRESENT: oriented to time, oriented to situation, CN II-XII grossly intact Focused psych exam: ABSENT: restlessness Skin exam: PRESENT: normal color. ABSENT: mottled, pallor, urticaria, vesicles Results Laboratory Results: 04/12/18 05:05 04/12/18 05:05 04/06/18 04/06/18 10:10 10:10 Creatine Kinase 299 H CK-MB (CK-2) 4.02 Troponin I 0.022 Impressions: Abdomen/Pelvis CT 04/06/18 10:25 IMPRESSION: DISTENDED STOMACH WHICH MAY BE DUE TO GASTROPARESIS VERSUS GASTRIC OUTLET OBSTRUCTION. NO OTHER SIGNIFICANT FINDING IN THE ABDOMEN OR PELVIS. Renal Ultrasound 04/08/18 00:00 IMPRESSION: NORMAL RENAL AND BLADDER ULTRASOUND. Assessment & Plan - Diagnosis (1) Odynophagia Is this a current diagnosis for this admission?: Yes Plan: patient will need an EGD will rule out peptic ulcer disease Risks, benefits and alternatives are explained to the patient in detail further recommendations to follow - Time Time Spent: 50 to 70 Minutes
--- NOTE | 2018-04-13 14:01 | PDOC PROGRESS REPORT ---
Subjective Progress Note for:: 04/13/18 Subjective:: This is a 67 year old male past medical history of diabetes type 2, CAD status post PCI stent x1, CABG, hyperlipidemia, KARI, depression, anxiety, diabetic gastroparesis, who presented to ED complaining of worsening nausea associated with nonbloody, bilious vomiting and abdominal pain. He was found to be in DKA and also had acute pancreatitis. In the interim, his DKA and pancreatitis resolved. He complained however of odynophagia and was awaiting GI evaluation. No acute event overnight. Upon encounter this morning, patient says his abdominal pain continue to improve. No nausea or vomiting but still complains of tearing pain when he swallows food either liquid or solid. He is going for possible EGD today. Reason For Visit: DKA,PANCREATITIS Physical Exam Vital Signs: Temp Pulse Resp BP Pulse Ox 98.6 F 76 17 131/69 H 96 04/13/18 12:05 04/13/18 13:10 04/13/18 13:10 04/13/18 13:10 04/13/18 13:10 Intake & Output 04/12/18 04/13/18 04/14/18 06:59 06:59 06:59 Intake Total 2907 2200 150 Output Total 1400 2750 500 Balance 1507 -550 -350 Weight 218 lb 4.122 oz 217 lb 9.54 oz General appearance: PRESENT: no acute distress, well-developed, well-nourished Head exam: PRESENT: atraumatic, normocephalic Eye exam: PRESENT: conjunctiva pink, EOMI, PERRLA. ABSENT: scleral icterus Ear exam: PRESENT: normal external ear exam Mouth exam: PRESENT: moist, tongue midline Neck exam: ABSENT: carotid bruit, JVD, lymphadenopathy, thyromegaly Respiratory exam: PRESENT: clear to auscultation chris. ABSENT: rales, rhonchi, wheezes Cardiovascular exam: PRESENT: RRR. ABSENT: diastolic murmur, rubs, systolic murmur Pulses: PRESENT: normal dorsalis pedis pul GI/Abdominal exam: PRESENT: normal bowel sounds, soft. ABSENT: distended, guarding, mass, organolmegaly, rebound, tenderness Rectal exam: PRESENT: deferred Neurological exam: PRESENT: alert, awake, oriented to person, oriented to place, oriented to time, oriented to situation, CN II-XII grossly intact. ABSENT: motor sensory deficit Results Laboratory Results: 04/12/18 05:05 04/12/18 05:05 04/06/18 04/06/18 10:10 10:10 Creatine Kinase 299 H CK-MB (CK-2) 4.02 Troponin I 0.022 Impressions: Abdomen/Pelvis CT 04/06/18 10:25 IMPRESSION: DISTENDED STOMACH WHICH MAY BE DUE TO GASTROPARESIS VERSUS GASTRIC OUTLET OBSTRUCTION. NO OTHER SIGNIFICANT FINDING IN THE ABDOMEN OR PELVIS. Renal Ultrasound 04/08/18 00:00 IMPRESSION: NORMAL RENAL AND BLADDER ULTRASOUND. Assessment & Plan - Diagnosis (1) DKA (diabetic ketoacidoses) Is this a current diagnosis for this admission?: Yes Plan: Resolved. Hba1c came back at 11. Sugars in the 200s. Continue Lantus and insulin sliding scale. (2) Acute pancreatitis Is this a current diagnosis for this admission?: Yes Plan: Resolved. Alcohol-induced. His diet was advanced but complained of odynophagia which he describes as "tearing chest pain" when he swallows food (both liquid and solid). He is going for possible EGD today. (3) Odynophagia Is this a current diagnosis for this admission?: Yes Plan: CT was concerning for possible duodenal stricture. GI service available today. Possible EGD today. (4) HTN (hypertension) Qualifiers: Is this a current diagnosis for this admission?: Yes Plan: Continue lisinopril and lopressor. - Time Time Spent with patient: 25-34 minutes
[2018-04-13] MEDS: PANTOPRAZOLE SODIUM 40 MG VIAL IV SCH (17:03)
[2018-04-13] MEDS: SUCRALFATE 1 GM TABLET PO SCH ×2 (17:03→21:46)
[2018-04-13] MEDS: ATORVASTATIN CALCIUM 20 MG TABLET PO SCH (21:47)
[2018-04-14] MEDS: BUPROPION HCL 100 MG TABLET PO SCH ×2 (06:04→14:17)
[2018-04-14] MEDS: MAG HYDROX/AL HYDROX/SIMETH SUSP 30 ML UDCUP PO PRN ×2 (06:04→10:10)
[2018-04-14] MEDS: METRONIDAZOLE 500 MG TABLET PO SCH (06:04)
[2018-04-14] MEDS: SUCRALFATE 1 GM TABLET PO SCH ×2 (08:31→10:57)
[2018-04-14] MEDS: INSULIN LISPRO 100 UNIT/ML 3 ML VIAL SUBCUT SCH ×2 (08:31→12:12)
[2018-04-14] MEDS: NORMAL SALINE 1000 ML 1,000 ML IV PRN ×2 (08:32)
[2018-04-14] MEDS: CLOPIDOGREL BISULFATE 75 MG TABLET PO SCH (10:08)
[2018-04-14] MEDS: LISINOPRIL 5 MG TABLET PO SCH (10:09)
[2018-04-14] MEDS: METOPROLOL TARTRATE 25 MG TABLET PO SCH (10:09)
[2018-04-14] MEDS: SERTRALINE HCL 50 MG TABLET PO SCH (10:09)
[2018-04-14] MEDS: ENOXAPARIN SODIUM INJ 40 MG/0.4 ML DISP.SYRIN SUBCUT SCH (10:09)
[2018-04-14] MEDS: ASPIRIN 81 MG TABLET, ENT COATED PO SCH (10:09)
[2018-04-14] MEDS: PANTOPRAZOLE SODIUM 40 MG VIAL IV SCH (10:09)
[2018-04-14] MEDS ORDERED: INSULIN GLARGINE,HUM.REC.ANLOG 1,000 UNIT/10 ML UNIT SUBCUT SCH ×2 (11:15→18:00)
[2018-04-14] MEDS ORDERED: INSULIN GLARGINE,HUM.REC.ANLOG 1,000 UNIT/10 ML UNIT SUBCUT ONE (11:30)
[2018-04-14 12:11] VITALS: BP 132/74
--- NOTE | 2018-04-14 17:00 | PDOC DISCHARGE SUMMARY ---
General - Admit/Disc Date/PCP Admission Date/Primary Care Provider: 04/06/18 13:24 ANAIS ALLEN NP Discharge Date: 04/14/18 - Discharge Diagnosis (1) DKA (diabetic ketoacidoses) Is this a current diagnosis for this admission?: Yes Summary: Resolved with IV fluids, IV insulin, and electrolyte replacement. (2) Acute pancreatitis Is this a current diagnosis for this admission?: Yes Summary: Resolved with IV fluids and got rest. He was eating and drinking without difficulty or pain at discharge. (3) SARAH (acute kidney injury) Is this a current diagnosis for this admission?: Yes Summary: Resolved with IV fluids. - Additional Information Resuscitation Status: Full Code Discharge Diet: Cardiac, Diabetic, Other (Comments) Discharge Activity: Activity As Tolerated Prescriptions: Pantoprazole Sodium [Protonix] 40 mg PO BID #60 tablet.dr Bridges Medications: Bupropion HCl [Wellbutrin Xl 300mg 24hr Tablet] 300 mg PO DAILY 04/06/18 Cetirizine HCl [Zyrtec 10 mg Tablet] 10 mg PO DAILY 04/06/18 Clopidogrel Bisulfate [Plavix 75 mg Tablet] 75 mg PO DAILY 04/06/18 Cyclobenzaprine HCl [Flexeril 10 mg Tablet] 10 mg PO TIDP PRN 04/06/18 Insulin Glargine,Hum.rec.anlog [Lantus Insulin 100 Unit/1 ml 10 ml] 120 units SQ DAILY 04/06/18 Insulin Lispro [Humalog Kwikpen U-200] 0 units SQ .PERSLIDINGSCALE 04/06/18 Metoprolol Tartrate [Lopressor 25 mg Tablet] 25 mg PO BID 04/06/18 Pitavastatin Calcium [Livalo] 4 mg PO DAILY 04/06/18 Sertraline HCl [Zoloft] 100 mg PO DAILY 04/06/18 Tramadol HCl [Ultram 50 mg Tablet] 50 mg PO .ATONSETOFHEADACHE PRN MDD MAY REPEAT IN 6 HRS 04/06/18 Aspirin [Ecotrin 81 mg EC Tablet] 81 mg PO DAILY tabec 04/14/18 Pantoprazole Sodium [Protonix] 40 mg PO BID #60 tablet. 04/14/18 History of Present Illness History of Present Illness: RHONDA WRIGHT is a 67 year old male past medical history of diabetes type 2, CAD status post PCI stent x1, CABG, hyperlipidemia, KARI, depression, anxiety, diabetic gastroparesis, who presented to ED complaining of worsening nausea associated with nonbloody, bilious vomiting and abdominal pain. Patient is insulin-dependent however he had a recent travel to [place] 9 days ago and forgot to take his insulin supplies. While at [place] last Thursday he also had some EtOH. Denies any history of alcohol abuse. Nausea and vomiting associated with epigastric abdominal pain, 6/10, constant, sharp, worse with movement, nonradiating, and nonbloody diarrhea and shortness of breath. Also endorsing polydipsia, polyuria. Denies any fever, chest pain. In ED he was found to have white blood cells 20,000, anion gap 35, BGL 500, lipase 6585 and creatinine 2.02. Abdominal CT was negative for any acute abnormalities except for gastric distention. Hospitalist was consulted for admission. Hospital Course Hospital Course: He was put on got rest and given IV fluids and IV insulin and electrolyte replacement. His lipase trended down and his abdominal pain resolved. He got out of DKA and we put him back on a basal bolus regimen his blood sugars were relatively well controlled. His creatinine trended back to normal after some IV fluids. He was seen and evaluated by physical therapy but denied any needs for any home health or home assistance. His labs and examination were reassuring he was discharged in good condition. Physical Exam Vital Signs: Temp Pulse Resp BP Pulse Ox 97.8 F 72 18 132/74 H 99 04/14/18 15:17 04/14/18 15:17 04/14/18 15:17 04/14/18 11:31 04/14/18 15:17 Intake & Output 04/13/18 04/14/18 04/15/18 06:59 06:59 06:59 Intake Total 2200 1675 1000 Output Total 2750 1825 225 Balance -550 -150 775 Weight 98.7 kg 96.5 kg General appearance: PRESENT: no acute distress, well-developed, well-nourished Respiratory exam: PRESENT: clear to auscultation chris. ABSENT: rales, rhonchi, wheezes Cardiovascular exam: PRESENT: RRR. ABSENT: diastolic murmur, rubs, systolic murmur Pulses: PRESENT: normal dorsalis pedis pul GI/Abdominal exam: PRESENT: normal bowel sounds, soft. ABSENT: distended, guarding, mass, organolmegaly, rebound, tenderness Neurological exam: PRESENT: alert, awake, oriented to person, oriented to place, oriented to time, oriented to situation, CN II-XII grossly intact. ABSENT: motor sensory deficit Results Laboratory Results: 04/12/18 05:05 04/12/18 05:05 04/06/18 04/06/18 10:10 10:10 Creatine Kinase 299 H CK-MB (CK-2) 4.02 Troponin I 0.022 Impressions: Abdomen/Pelvis CT 04/06/18 10:25 IMPRESSION: DISTENDED STOMACH WHICH MAY BE DUE TO GASTROPARESIS VERSUS GASTRIC OUTLET OBSTRUCTION. NO OTHER SIGNIFICANT FINDING IN THE ABDOMEN OR PELVIS. Renal Ultrasound 04/08/18 00:00 IMPRESSION: NORMAL RENAL AND BLADDER ULTRASOUND. Qualifiers - * PATIENT BEING DISCHARGED WITH ANY OF THE FOLLOWING DIAGNOSIS: No
== END 2018-04-14 16:07 | disposition home or self-care (01) | DRG 637 ==
LOC: ER 09:32 → EH 12:27 → INTOOBSV 12:27 → OBSVTOIN 13:24 → 3N 15:12
PROVIDERS: ADMIT Internal Medicine; ATTEND Internal Medicine
PROC: 0DB48ZX Excision of Esophagogastric Junction, Via Natural or Artificial Opening Endoscopic, Diagnostic (ICD-10-PCS; principal; 2018-04-13 12:30)
DX: E11.10 Type 2 diabetes mellitus with ketoacidosis without coma (principal); K85.20 Alcohol induced acute pancreatitis without necrosis or infection; N17.9 Acute kidney failure, unspecified; K22.10 Ulcer of esophagus without bleeding; K31.84 Gastroparesis; I25.10 Atherosclerotic heart disease of native coronary artery without angina pectoris; E78.5 Hyperlipidemia, unspecified; G47.33 Obstructive sleep apnea (adult) (pediatric); F32.9 Major depressive disorder, single episode, unspecified; F41.9 Anxiety disorder, unspecified; E11.43 Type 2 diabetes mellitus with diabetic autonomic (poly)neuropathy; E11.65 Type 2 diabetes mellitus with hyperglycemia; I10 Essential (primary) hypertension; Z96.659 Presence of unspecified artificial knee joint; G43.909 Migraine, unspecified, not intractable, without status migrainosus; E66.9 Obesity, unspecified; E11.649 Type 2 diabetes mellitus with hypoglycemia without coma; E87.6 Hypokalemia; Z79.4 Long term (current) use of insulin; Z95.1 Presence of aortocoronary bypass graft; Z95.5 Presence of coronary angioplasty implant and graft; Z91.19 Patient's noncompliance with other medical treatment and regimen; Z86.718 Personal history of other venous thrombosis and embolism; I25.2 Old myocardial infarction; Z79.02 Long term (current) use of antithrombotics/antiplatelets; Z79.82 Long term (current) use of aspirin; Z68.34 Body mass index [BMI] 34.0-34.9, adult
CPT/HCPCS: 36415; 43239; 74176; 76770; 80048; 80053; 80061; 81001; 82010; 82550; 82553; 82570; 82803; 82962; 83036; 83690; 83735; 84300; 84484; 85025; 87040; 88305; 93005; 93010; 96374; 99291; J0171; J1200; J1610; J1650; J1815; J2250; J2270; J2310; J2405; J3010; J3490; J7030; S0164

== ENCOUNTER 2018-05-24 06:43 | Day surgery (SDC) | payer MEDICARE, BC ==
[2018-05-24] MEDS ORDERED: PROPOFOL INJ 200 MG/20 ML VIAL IV ONE (07:39)
[2018-05-24 09:15] VITALS: BP 113/85
--- NOTE | 2018-05-24 12:59 | Operative Report ---
Operative Report DATE OF SURGERY: 05/24/18 Operative Report: The risks, benefits and alternatives of the procedure including the risk of bleeding, perforation requiring surgery have been explained to the patient in detail and informed consent has been obtained. Patient is placed in a left, lateral decubital position. Timeout was called. Propofol medication is administered. Rectal examination is done which did not reveal any masses, tears or fissures. An Olympus videoscope was introduced into the patient's rectum. Scope was then carefully advanced all the way to the cecum. The cecum was identified by the usual anatomical landmarks including the ileocecal valve as well as the appendiceal office. Photodocumentation was obtained. The scope was then sequentially pulled back via the various segments of the colon including the ascending colon, hepatic flexure, transverse colon, splenic flexure, descending colon and finally into the rectosigmoid portions of the colon. Retroflexion maneuver was performed. The risks benefits and alternatives of the procedure explained to the patient in detail and informed consent is obtained.A GIF Olympus video scope was inserted into the patient's mouth and hypopharynx, the esophagus is identified intubated and insufflated, the scope was then advanced through the esophagus stomach and duodenum, retroflexion maneuver is done ,the esophagus stomach and first and second portions of the duodenum examined. PREOPERATIVE DIAGNOSIS: Surveillance colonoscopy due to personal history of polyp. Follow-up previous erosive esophagitis to determine healing POSTOPERATIVE DIAGNOSIS: Resolved esophagitis. Gastritis status post biopsy for Helicobacter pylori. Internal hemorrhoids. Diverticulosis without any evidence of diverticulitis. Colon polyp removed via biopsy forceps OPERATION: Colonoscopy biopsy. EGD with biopsy SURGEON: KAROLINA RAO ANESTHESIA: LMAC TISSUE REMOVED OR ALTERED: As noted above. COMPLICATIONS: None. ESTIMATED BLOOD LOSS: None. INTRAOPERATIVE FINDINGS: As noted above. PROCEDURE: Patient tolerated the procedure well. No immediate postprocedure complications are noted. Patient discharged in good condition. Discharge date 05/24/2018. Discharge diet: Regular. Discharge activity: Regular. 2-3-week follow-up to discuss findings. 5-year surveillance colonoscopy. Patient is instructed to call the office or proceed to the emergency room if any further problems or questions. Wait on the pathology.
== END 2018-05-24 08:56 | disposition home or self-care (01) ==
LOC: END 06:43
PROVIDERS: ATTEND Internal Medicine Gastroenterology
DX: K29.50 Unspecified chronic gastritis without bleeding (principal); Z09 Encounter for follow-up examination after completed treatment for conditions other than malignant neoplasm; Z87.19 Personal history of other diseases of the digestive system; Z12.11 Encounter for screening for malignant neoplasm of colon; D12.6 Benign neoplasm of colon, unspecified; K57.30 Diverticulosis of large intestine without perforation or abscess without bleeding; K64.8 Other hemorrhoids; Z86.010 Personal history of colon polyps; E11.9 Type 2 diabetes mellitus without complications; I10 Essential (primary) hypertension; Z87.891 Personal history of nicotine dependence; Z79.82 Long term (current) use of aspirin; Z79.01 Long term (current) use of anticoagulants; Z79.4 Long term (current) use of insulin; Z79.899 Other long term (current) drug therapy; Z79.891 Long term (current) use of opiate analgesic
CPT/HCPCS: 43239; 45380; 82962; 88305 ×2; J2704; 813